=== PATIENT | male | born 1935 | race Caucasian/White ===

== ENCOUNTER 2016-03-09 14:49 | Observation (INO) ==
[2016-03-09] MEDS ORDERED: 0.9 % SODIUM CHLORIDE 1,000 ML IV ONE (15:07)
--- NOTE | 2016-03-09 15:23 | Emergency Department Note ---
General Adult HPI - General Chief complaint: Weakness Stated complaint: confusion, weakness Time Seen by Provider: 03/09/16 15:04 Source: patient, family Mode of arrival: EMS Limitations: no limitations - History of Present Illness HPI Narrative: This is the patient's third trip to the ER in the last 5 days. He was diagnosed with a UTI and started on Levaquin. On the second visit his urine was clearing up. He continues to just be very weak and not eating or drinking much. Sometimes confused. Had a normal CAT scan 2 nights ago of his head. - Related Data Home Medications Medication Instructions Recorded Confirmed Calcium/D3/Mag Ox/Assistant To The President/Gera/Zn 03/07/16 [Caltrate+D3 Plus Mineral Minis] Celebrex 03/07/16 Ferrous Gluconate [Fergon] 324 mg PO 03/07/16 Hydrochlorothiazide [Oretic] 25 mg PO DAILY 03/07/16 03/07/16 Ibuprofen 03/07/16 Levothyroxine [Synthroid] 100 mcg PO DAILY 03/07/16 03/07/16 Losartan Potassium 03/07/16 Omeprazole [Prilosec] 03/07/16 Potassium Chloride [Klor-Con 10] 03/07/16 Valtrex 03/07/16 traMADol HCL [Ultram] 50 mg PO 03/07/16 Previous Rx's Medication Instructions Recorded Levofloxacin [Levaquin] 500 mg PO DAILY #10 tablet 03/02/16 Carbidopa/Levodopa 10/100 [Sinemet 1 tab PO TID #45 tablet 03/07/16 10/100] Allergies Allergy/AdvReac Type Severity Reaction Status Date / Time NO KNOWN DRUG ALLERGIES Allergy Unknown Uncoded 08/11/14 03:16 Review of Systems Constitutional: Denies: fever, chills Eyes: Denies: eye pain ENT ED: Denies: ear pain, throat pain Cardiovascular: Denies: chest pain, palpitations Respiratory: Denies: cough, dyspnea Gastrointestinal: Denies: abdominal pain, nausea, vomiting Genitourinary: Denies: urgency, dysuria Musculoskeletal: Denies: back pain Integumentary: Denies: rash Neurological: Denies: headache Past Medical History - Past Medical History Medical history: Reports: cancer (prostate and lymphoma), GERD, hypertension, kidney stones, thyroid disease Surgical history ED: Reports: orthopedic, other (back surgery), tonsillectomy Physical Exam - General Limitations: no limitations General appearance: alert - Head Head exam: atraumatic - Eye Eye exam: Present: normal appearance - ENT ENT exam: normal exam - Neck Neck exam: Present: normal inspection - Chest Chest inspection: Present: normal inspection - Respiratory Respiratory exam: Present: normal lung sounds bilaterally - Cardiovascular Cardiovascular exam: Present: regular rate, normal rhythm, normal heart sounds - Abdominal Exam Abdominal exam: Present: soft. Absent: distention, tenderness - Neurological Exam Neurological exam: Present: alert - Psychiatric Psychiatric exam: Present: normal affect - Skin Skin exam: Present: warm, dry Course Vital Signs Temperature 98.0 F 03/09/16 14:53 Pulse Rate 97 H 03/09/16 14:53 Respiratory Rate 16 03/09/16 14:53 Blood Pressure 141/77 03/09/16 14:53 Pulse Oximetry (%) 96 03/09/16 14:53 Temperature 98.0 F 03/09/16 14:53 Pulse Rate 93 H 03/09/16 16:34 Respiratory Rate 16 03/09/16 16:34 Blood Pressure 169/93 03/09/16 16:34 Pulse Oximetry (%) 91 03/09/16 16:34 Medical Decision Making - [facility] Narrative Medical decision making narrative: This patient had a new onset seizure while in the emergency room. It lasted about 1 minute. During given Ativan and is waking up some. Have discussed the case with Dr. Sanches and he'll be admitted to telemetry. Repeat CT scan tonight is negative. - Lab Data Lab results reviewed: Yes I reviewed the patient's lab results. Result diagrams: 03/09/16 15:10 03/09/16 15:10 Lab Results 03/09/16 03/09/16 03/09/16 Range/Units 15:10 15:10 15:35 WBC 9.8 (4.5-11.0) K/mcL RBC 5.87 (4.50-5.90) M/mcL Hgb 17.0 H (13.5-16.5) g/dL Hct 52.0 (41.0-55.0) % MCV 88.5 (80.0-100.0) fL MCH 29.0 (26.0-34.0) pg MCHC 32.8 (31.0-36.0) g/dL RDW 13.5 (11.5-14.5) % Plt Count 182 (140-440) K/mcL MPV 9.6 (7.4-10.4) fL Gran % 86.9 H (38.0-78.0) % Lymph % (Auto) 7.4 L (15.5-49.0) % Bladen % (Auto) 5.5 (1.0-9.0) % Eos % (Auto) 0.2 (0.0-7.0) % Baso % (Auto) 0 (0.0-2.0) % Gran # 8.5 H (1.8-8.0) K/mcL Lymph # 0.7 L (1.5-4.8) K/mcL Bladen # 0.5 (0.1-0.9) K/mcL Eos # 0 (0.0-0.7) K/mcL Baso # 0 (0.0-0.3) K/mcL VBG Lactic Acid 1.2 (0.5-2.2) mmol/L Sodium 138 (133-145) mmol/L Potassium 3.5 (3.3-5.1) mmol/L Chloride 98 (96-108) mmol/L Carbon Dioxide 25 (22-30) mmol/L Anion Gap 15.0 (8-16) BUN 17 (8-23) mg/dl Creatinine 1.0 (0.7-1.2) mg/dl GFR Calculation 70 Glucose 102 (70-105) mg/dL Calcium 9.5 (8.6-10.4) mg/dl Total Bilirubin 0.8 (0.0-1.0) mg/dL AST 25 (0-37) U/l ALT 9 (0-40) U/l Alkaline Phosphatase 78 (39-117) U/L Total Protein 7.3 (5.9-8.4) gm/dL Albumin 4.3 (3.2-5.2) gm/dL Globulin 3.0 (2.2-3.7) gm/dL Albumin/Globulin Ratio 1.4 (1.0-2.3) Urine Color Urine Appearance Urine pH (5.0-9.0) Ur Specific Lincoln (1.000-1.035) Urine Protein (NEG) mg/dL Urine Glucose (UA) (NEG) mg/dL Urine Ketones (NEG) mg/dL Urine Occult Blood (<0.03) mg/dL Urine Nitrate (NEG) Urine Bilirubin (NEG) mg/dL Urine Urobilinogen (NEG) mg/dL Ur Leukocyte Esterase (NEG) /uL Urine RBC (0-1) /hpf Urine WBC (0-4) /hpf Ur Squamous Epith Cells (0-4) /hpf Urine Bacteria (0) /hpf Hyaline Casts (0-2) /lpf Granular Casts (0) /lpf Urine Mucus (0) /hpf Ur Culture Indicated? 03/09/16 Range/Units 15:38 WBC (4.5-11.0) K/mcL RBC (4.50-5.90) M/mcL Hgb (13.5-16.5) g/dL Hct (41.0-55.0) % MCV (80.0-100.0) fL MCH (26.0-34.0) pg MCHC (31.0-36.0) g/dL RDW (11.5-14.5) % Plt Count (140-440) K/mcL MPV (7.4-10.4) fL Gran % (38.0-78.0) % Lymph % (Auto) (15.5-49.0) % Bladen % (Auto) (1.0-9.0) % Eos % (Auto) (0.0-7.0) % Baso % (Auto) (0.0-2.0) % Gran # (1.8-8.0) K/mcL Lymph # (1.5-4.8) K/mcL Bladen # (0.1-0.9) K/mcL Eos # (0.0-0.7) K/mcL Baso # (0.0-0.3) K/mcL VBG Lactic Acid (0.5-2.2) mmol/L Sodium (133-145) mmol/L Potassium (3.3-5.1) mmol/L Chloride (96-108) mmol/L Carbon Dioxide (22-30) mmol/L Anion Gap (8-16) BUN (8-23) mg/dl Creatinine (0.7-1.2) mg/dl GFR Calculation Glucose (70-105) mg/dL Calcium (8.6-10.4) mg/dl Total Bilirubin (0.0-1.0) mg/dL AST (0-37) U/l ALT (0-40) U/l Alkaline Phosphatase (39-117) U/L Total Protein (5.9-8.4) gm/dL Albumin (3.2-5.2) gm/dL Globulin (2.2-3.7) gm/dL Albumin/Globulin Ratio (1.0-2.3) Urine Color Yellow Urine Appearance Clear Urine pH 5.0 (5.0-9.0) Ur Specific Lincoln 1.021 (1.000-1.035) Urine Protein 100 A (NEG) mg/dL Urine Glucose (UA) Negative (NEG) mg/dL Urine Ketones 20 A (NEG) mg/dL Urine Occult Blood 0.03 A (<0.03) mg/dL Urine Nitrate Neg (NEG) Urine Bilirubin Neg (NEG) mg/dL Urine Urobilinogen Neg (NEG) mg/dL Ur Leukocyte Esterase Neg (NEG) /uL Urine RBC 2 H (0-1) /hpf Urine WBC 2 (0-4) /hpf Ur Squamous Epith Cells 0 (0-4) /hpf Urine Bacteria 0 (0) /hpf Hyaline Casts 8 H (0-2) /lpf Granular Casts 1 H (0) /lpf Urine Mucus Few (0) /hpf Ur Culture Indicated? No - Radiology Data Radiology results reviewed: Yes I reviewed the patient's radiology results. (cT scan of head is negative) Disposition Clinical Impression: Seizure Disposition: Xfer As Inpt ([facility]) Condition: Good Referrals: Robert Lawrence MD [Primary Care Provider] - Time of Disposition: 16:49
[2016-03-09 15:56] LABS: Basophils # (Auto) 0 K/mcL (0.0-0.3); Basophils % (Auto) 0 % (0.0-2.0); Eosinophils # (Auto) 0 K/mcL (0.0-0.7); Eosinophils % (Auto) 0.2 % (0.0-7.0); Granulocytes % (Auto) 86.9 % (38.0-78.0); Lymphocytes # (Auto) 0.7 K/mcL (1.5-4.8); Lymphocytes % (Auto) 7.4 % (15.5-49.0); Mean Cell Volume 88.5 fL (80.0-100.0); Mean Corpuscular HGB Conc 32.8 g/dL (31.0-36.0); Monocytes # (Auto) 0.5 K/mcL (0.1-0.9); Monocytes % (Auto) 5.5 % (1.0-9.0); Platelet Count 182 K/mcL (140-440); RBC 5.87 M/mcL (4.50-5.90); Red Cell Distribution Width 13.5 % (11.5-14.5)
[2016-03-09 16:10] LABS: Appearance,Urine CLEAR; Bacteria,Urine 0 /hpf (0); Bilirubin,Urine NEG (NEG); Color,Urine YELLOW; Glucose,Urine (UA) NEGATIVE (NEG); Leukocyte Esterase,Urine NEG /uL (NEG); Mucus,Urine FEW /hpf (0); Nitrate,Urine NEG (NEG); Protein,Urine 100 mg/dL (NEG); Specific Gravity,Urine 1.021 (1.000-1.035); Urine Blood 0.03 mg/dL (<0.03); Urine Granular Cast 1 /lpf (0); Urine Hyaline Cast 8 /lpf (0-2); Urine RBC 2 /hpf (0-1); Urine Squamous Epithelial Cell 0 /hpf (0-4); Urine WBC 2 /hpf (0-4); Urobilinogen,Urine NEG (NEG)
[2016-03-09] MEDS ORDERED: LORazepam 2 MG/ML VIAL ONE ×2 (16:10→16:28)
[2016-03-09 16:18] LABS: ALT/SGPT 9 U/l (0-40); Albumin 4.3 gm/dL (3.2-5.2); Albumin/Globulin Ratio 1.4 (1.0-2.3); Alkaline Phosphatase 78 U/L (39-117); Blood Urea Nitrogen 17 mg/dl (8-23)
[2016-03-09] MEDS ORDERED: ONDANSETRON 4 MG/2 ML VIAL IV ONE (16:34)
--- NOTE | 2016-03-09 17:43 | XRay Report ---
HISTORY: Reason for Exam:weak FINDINGS: The lungs are clear. The bibasilar atelectasis seen on 03/02/16 has resolved. The heart size and pulmonary vasculature are normal. There is a loop of colon interposed between the liver and right diaphragm. IMPRESSION: Normal exam Interpreted and Authenticated by: Manjit Marion 03/09/16
--- NOTE | 2016-03-09 17:43 | Cat Scan Report ---
History: Seizure and unresponsive Findings: The brain was imaged without contrast at 2.5 mm intervals. Patient is moving on several images. Many these images had to be repeated. 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 No acute infarct is detected. There is no hemorrhage, cerebral edema or mass effect. Mild generalized atrophy is present. There has been no significant change since 03/07/16. Small amount of fluid is present in the left maxillary sinus. Impression: No acute abnormality Dr. Tan was called with results Interpreted and Authenticated by: Manjit Marion 03/09/16
[2016-03-09] MEDS ORDERED: POTASSIUM CHLORIDE 20 MEQ PACKET PO PRN (19:32)
[2016-03-09] MEDS ORDERED: ONDANSETRON 4 MG/2 ML VIAL IV PRN (19:32)
[2016-03-09] MEDS ORDERED: MAGNESIUM SULFATE 2 GM/50 ML BAG IV PRN (19:32)
[2016-03-09 20:17] LABS: C-Reactive Protein 0.3 mg/dl (0.0-0.8)
[2016-03-09] MEDS: 0.9 % SODIUM CHLORIDE 1,000 ML IV SCH (20:55)
[2016-03-09] MEDS: SENNOSIDES/DOCUSATE SODIUM 1 TAB TABLET PO SCH (20:58)
[2016-03-09] MEDS: DOCUSATE SODIUM 100 MG CAPSULE PO SCH (20:58)
[2016-03-09] MEDS: 0.9 % SODIUM CHLORIDE 10 ML SYRINGE IV SCH (20:58)
[2016-03-09] MEDS: HEPARIN 5,000 UNIT/ML VIAL SQ SCH (21:49)
[2016-03-10] MEDS: 0.9 % SODIUM CHLORIDE 10 ML SYRINGE IV SCH ×3 (05:10→20:59)
[2016-03-10 07:58] LABS: Mean Cell Volume 87.9 fL (80.0-100.0); Mean Corpuscular HGB Conc 32.7 g/dL (31.0-36.0); Mean Corpuscular Hemoglobin 28.8 pg (26.0-34.0); Platelet Count 140 K/mcL (140-440); RBC 5.02 M/mcL (4.50-5.90); Red Cell Distribution Width 13.6 % (11.5-14.5)
[2016-03-10 08:45] LABS: ALT/SGPT 9 U/l (0-40); Albumin 3.3 gm/dL (3.2-5.2); Albumin/Globulin Ratio 1.3 (1.0-2.3); Alkaline Phosphatase 61 U/L (39-117); Bilirubin,Direct < 0.2 mg/dL (0.0-0.3); Blood Urea Nitrogen 15 mg/dl (8-23); Gamma Glutamyl Transpeptidase 9 U/L (8-61); Magnesium 1.7 mg/dL (1.6-2.5); Phosphorous 2.7 mg/dL (2.7-4.5); Uric Acid 8.1 mg/dL (2.5-8.0)
[2016-03-10] MEDS: HEPARIN 5,000 UNIT/ML VIAL SQ SCH ×2 (09:35→20:53)
[2016-03-10] MEDS: DOCUSATE SODIUM 100 MG CAPSULE PO SCH ×2 (09:35→20:52)
[2016-03-10] MEDS: MULTIVIT,THER IRON,CA,FA & MIN 1 TABLET PO SCH (09:35)
[2016-03-10 09:37] LABS: Eosinophils % (Manual) 1 % (0-7); Lymphocytes % 10 % (15-49); Monocytes % (Manual) 11 % (1-9); Platelet Estimate NORMAL (NORMAL); RBC Morphology NORMAL (NORMAL); Segmented Neutrophils % 76 % (38-78)
[2016-03-10] MEDS ORDERED: TRIAMCINOLONE 0.1% TOPICAL PRN (09:55)
--- NOTE | 2016-03-10 10:29 | Internal Med Progress Note ---
Medical - PN: Subj Patient information: Note initiated : 03/10/16 at 10:29 am Service Date, if different from initiated Date: [] Patient: Bakari Golden 81 y/o M admitted on 03/09/16 for confusion, weakness. Chief Complaint: [] Interval history: 03/09 pt admitted with new on set seizure and recent UTI with weakness and levaquin, Normal metabolic panel. Await brain MRI to r/o structural abn. DC levaquin and tramadol due to high risk drug induced seizure. Avoid antiepileptics since first episode. 03/10- patient seizure free overnight with normalization of mentation. Improved weakness, ongoing PT, await brain MRI. Case discussed with carlotta including and daughter. Possible discharge in am. Continue rocephin. - Constitutional Vitals: Vital Signs Temp Pulse Resp BP Pulse Ox 98.8 F 88 16 128/82 99 03/10/16 08:12 03/10/16 08:12 03/10/16 08:12 03/10/16 08:12 03/10/16 08:12 Period Temp Pulse Resp BP Sys/Alonso Pulse Ox Last 24 Hr 98.8 F-100.1 F 81-92 14-20 128-163/80-89 93-99 Intake and Output 03/09/16 03/10/16 03/10/16 21:59 05:59 13:59 Intake Total 0 / 0 Output Total 301 / 301 Balance - -301 / -301 Weight 146 lb 0.3 oz Intake & Output: Intake & Output 03/09/16 03/10/16 03/10/16 21:59 05:59 13:59 Intake Total 0 / 0 Output Total 301 / 301 Balance - -301 / -301 Weight 146 lb 0.3 oz Intake: Oral 0 / 0 Output: Void Amount 300 / 300 # of times incontinent of urine Other: # Voids 225 General appearance: cooperative, no acute distress Exam: Alert an doriented Non labored breathing No tele events Medical - PN: Obj Da - Labs CBC & Chem 7: 03/10/16 04:40 03/10/16 04:40 Labs: Abnormal Lab Results 03/10/16 03/10/16 04:40 04:40 Lymphocytes % 10 L Monocytes % (Manual) 11 H Potassium 3.2 L Carbon Dioxide 21 L Uric Acid 8.1 H Calcium 8.3 L Total Protein 5.8 L Meds: Medications Acetaminophen (Tylenol) 650 mg PO Q4-6HP PRN PRN Reason: PAIN/FEVER > 101 Calcium/Vitamin D (Calcium W/Vit D3) 500 mg PO DAILY [facility] Carbidopa/Levodopa (Sinemet 10/100) 1 tab PO TID [facility] Docusate Sodium (Colace) 100 mg PO BID [facility] Last Admin: 03/10/16 09:35 Dose: 100 mg Heparin Sodium (Porcine) (Heparin) 5,000 unit SQ Q12 [facility] Last Admin: 03/10/16 09:35 Dose: 5,000 unit Hydrochlorothiazide (Oretic) 25 mg PO DAILY [facility] Magnesium Sulfate (Magnesium Sulfate) 2 gm in 50 mls @ 50 mls/hr IV UD PRN PRN Reason: MG = or < 1.7 Sodium Chloride (Sodium Chloride 0.9%) 1,000 mls @ 50 mls/hr IV .Q20H [facility] Stop: 03/12/16 07:31 Last Admin: 03/09/16 20:55 Dose: 50 mls/hr Thiamine HCl 100 mg/ Sodium (Chloride) 51 mls @ 50 mls/hr IV DAILY [facility] Stop: 03/12/16 10:02 Ceftriaxone Sodium 1 gm/ (Dextrose) 50 mls @ 100 mls/hr IV Q24H [facility] Iron Carb/Multivit/Thurston/Folic Acid (Multivitamin W/Minerals) 1 tab PO DAILY [facility] Last Admin: 03/10/16 09:35 Dose: 1 tab Levothyroxine Sodium (Synthroid) 100 mcg PO ACB [facility] Losartan Potassium (Cozaar) 50 mg PO DAILY [facility] Non-Formulary Medication (Celebrex) 1 capsule PO DAILY [facility] Non-Formulary Medication (Triamcinolone Cream 0.1% 15g) 15 g TOPICAL TID PRN PRN Reason: Itching Ondansetron HCl (Zofran) 4 mg IV Q4-6HP PRN PRN Reason: Nausea And Vomiting Pantoprazole Sodium (Protonix) 40 mg PO QAMAC [facility] Potassium Chloride (Klor-Con) 40 meq PO DAILYP PRN PRN Reason: K+ < 3.5 Potassium Chloride (Kdur) 10 meq PO QAC [facility] Senna/Docusate Sodium (Senna Plus Tablet) 1 tab PO HS [facility] Last Admin: 03/09/16 20:58 Dose: Not Given Sodium Chloride (Saline Flush) 10 ml IV Q8 [facility] Last Admin: 03/10/16 05:10 Dose: Not Given Medical - PN: A/P - Time Spent With Patient Total time spent is greater than 50% in coordination of care (as documented) at patient's floor/unit and/or counseling patient: 15 - 24 minutes (1) New onset seizure Status: Acute Assessment and plan: * New onset seizure- Nl electrolytes, Nl Head CT, await brain MRI, likely drug induced, DC tramadol and levaquin. continue neurochecks. Pt at near baseline * Recent UTI- on rocephin * Weakness- Physical therapy, nutrition consult, diet supplements * parkinsons Dz- On Home meds Plan * Dc in am * Await brain MRI * Abx for 2 more days * Home meds to continue * Add tramadol and levaquin to adverse reaction list if brain MRI unremarkable for seizure etiology Current Visit: Yes Medical - PN: Qual - VTE Deep Vein Thrombosis/Pulmonary Embolism Present on Admission: No
[2016-03-10] MEDS: cefTRIAXone 1 GM in DEXTROSE 5% IN WATER 50 ML IV SCH (11:00)
[2016-03-10] MEDS: CARBIDOPA/LEVODOPA 10/100 TABLET PO SCH (12:19)
[2016-03-10] MEDS: THIAMINE 100 MG in 0.9 % SODIUM CHLORIDE 50 ML IV SCH (12:19)
[2016-03-10] MEDS: LOSARTAN 50 MG TABLET PO SCH (12:19)
[2016-03-10] MEDS: HYDROCHLOROTHIAZIDE 25 MG TABLET PO SCH (12:19)
--- NOTE | 2016-03-10 14:53 | History and Physical Report ---
DATE OF ADMISSION: 03/09/2016 REASON FOR ADMISSION: New onset of seizures and weakness. HISTORY OF CHIEF COMPLAINT: The patient is an 81-year-old who lives fairly independently along with his . He is accompanied to [facility] for the third time in the last one week due to increasing weakness and confusion. The patient was recently diagnosed with a UTI and was started on Levaquin; however, he has been persistently lethargic, unable to function and more forgetful. He has had significant loss of appetite. He, however, denies fever, chills, headache, palpitation. He is hard of hearing. He denies lower extremity swelling, joint pain, rash, diarrhea, or dysuria. Initial workup in the ER was essentially unremarkable; however, patient during the ER stay had a witnessed generalized tonic clonic seizure and subsequently Hospitalist Service was consulted in light of new onset of seizures. The patient denies any history of prior seizures, strokes or head trauma. REVIEW OF SYSTEMS: Ten-point review of system was performed and negative except the ones discussed above. PAST MEDICAL HISTORY: 1. Hypertension. 2. Degenerative joint disease. 3. Hypothyroidism. 4. GERD. 5. History of herpes. 6. Recent UTI. 7. Occasional Tremors CURRENT MEDICATIONS: 1. Levodopa/Carbidopa ( recently prescribed for tremors) 2. Valtrex. 3. Tramadol. 4. Potassium 10 mEq. 5. Prilosec 20 mg. 6. Synthroid 100 mcg. 7. Ibuprofen as needed. 8. Hydrochlorothiazide 25 mg daily. 9. Calcium and Vitamin D. ALLERGIES: None significant. SOCIAL HISTORY: The patient is and lives in the [place]. He sees primary care physician, Robert Lawrence. The patient carries a [id number] history of smoking, but quit 50 years ago. No history of alcoholism. FAMILY HISTORY: Significant for pancreatic cancer in mother who at age 53, coronary artery disease in father, colon cancer in brother who at age 65. PHYSICAL EXAMINATION: GENERAL: The patient is nondistressed; however, postictal confused, hard of hearing. BMI 23.6. Height 5 feet 6 inches. VITAL SIGNS: Blood pressure 146/80, respiration rate 17, temperature 100.1, pulse 105, sats 95% on 2 liters of oxygen. HEENT: Pupils symmetric. Oral cavity is dry. No ear or nose discharge. Head is normocephalic and atraumatic. NECK: No lymphadenopathy. HEART: S1, S2 regular rhythm, tachycardia. ESM grade 1. CHEST: Diminished breath sounds at bases. ABDOMEN: Soft and nontender. LOWER EXTREMITIES: No cyanosis or clubbing. No joint swelling. SKIN: No suspicious lesions. PSYCH: Postictal state, confused, but no agitation. NEURO: Could not be performed; however, he is moving all four extremities. LABS AND IMAGING: White count 9.8, hemoglobin 17, platelets, 182, lactic acid 1.2, sodium 138, potassium 3.5, creatinine 1, BUN 17. LFTs unremarkable. CRP less than 0.3. UA unremarkable. X-ray chest: Normal exam. Head CT: No acute abnormalities. ASSESSMENT AND PLAN: An 81-year-old with new onset of seizure. CT head unremarkable. 1. New onset seizure. Electrolyte and metabolic panel unremarkable. Head CT unremarkable. Brain MRI in 24 hours. Patient denies history of head trauma or brain surgery. At this time, we would not start patient on antiepileptics given first seizure episode; however, Levaquin and Tramadol may be implicated for likely drug-induced seizure which will be discontinued and will be noted on allergy list. 2. Other prior medical issues including history of recent UTI, continue Rocephin; Parkinson's disease, continue Levodopa/Carbidopa; degenerative joint disease, continue Celebrex/Ibuprofen as needed along with acetaminophen; GERD, continue PPI; hypothyroidism, continue Thyroxine. PLAN FOR TODAY: 1. Admit as observation telemetry. 2. Discontinue Levofloxacin and tramadol. 3. Continue Rocephin for recent UTI. 4. Preexisting medical condition management as above. 5. New checks q.4h. AA:senait Job ID: [id number] Doc ID: [id number] Chilo REID
[2016-03-10] MEDS: SENNOSIDES/DOCUSATE SODIUM 1 TAB TABLET PO SCH (20:53)
[2016-03-10] MEDS: 0.9 % SODIUM CHLORIDE 1,000 ML IV SCH (20:57)
[2016-03-10] MEDS: ACETAMINOPHEN 325 MG TABLET PO PRN (22:27)
[2016-03-11] MEDS: ACETAMINOPHEN 325 MG TABLET PO PRN (04:10)
[2016-03-11] MEDS: 0.9 % SODIUM CHLORIDE 10 ML SYRINGE IV SCH ×3 (04:21→20:30)
[2016-03-11 05:33] LABS: Mean Cell Volume 89.6 fL (80.0-100.0); Mean Corpuscular HGB Conc 32.8 g/dL (31.0-36.0); Mean Corpuscular Hemoglobin 29.4 pg (26.0-34.0); Platelet Count 136 K/mcL (140-440); RBC 4.65 M/mcL (4.50-5.90); Red Cell Distribution Width 13.7 % (11.5-14.5)
[2016-03-11 06:17] LABS: ALT/SGPT 9 U/l (0-40); Albumin 3.2 gm/dL (3.2-5.2); Albumin/Globulin Ratio 1.3 (1.0-2.3); Alkaline Phosphatase 59 U/L (39-117); Bilirubin,Direct < 0.2 mg/dL (0.0-0.3); Blood Urea Nitrogen 13 mg/dl (8-23); Gamma Glutamyl Transpeptidase 10 U/L (8-61); Magnesium 1.9 mg/dL (1.6-2.5); Phosphorous 2.2 mg/dL (2.7-4.5)
[2016-03-11] MEDS: CARBIDOPA/LEVODOPA 10/100 TABLET PO SCH (06:36)
[2016-03-11 06:44] LABS: Lymphocytes % 16 % (15-49); Monocytes % (Manual) 7 % (1-9); Platelet Estimate DECREASED (NORMAL); RBC Morphology NORMAL (NORMAL); Segmented Neutrophils % 75 % (38-78)
[2016-03-11] MEDS: LEVOTHYROXINE 100 MCG TABLET PO SCH (07:28)
[2016-03-11] MEDS: PANTOPRAZOLE 40 MG TABLET PO SCH (07:28)
[2016-03-11] MEDS: HEPARIN 5,000 UNIT/ML VIAL SQ SCH ×2 (08:12→19:53)
[2016-03-11] MEDS: LOSARTAN 50 MG TABLET PO SCH (08:12)
[2016-03-11] MEDS: MULTIVIT,THER IRON,CA,FA & MIN 1 TABLET PO SCH (08:12)
[2016-03-11] MEDS: CELECOXIB 200 MG CAPSULE PO SCH (08:12)
[2016-03-11] MEDS: CALCIUM W/VIT D3 500 MG TABLET PO SCH (08:12)
[2016-03-11] MEDS: DOCUSATE SODIUM 100 MG CAPSULE PO SCH ×2 (08:12→19:54)
[2016-03-11] MEDS: HYDROCHLOROTHIAZIDE 25 MG TABLET PO SCH (08:12)
[2016-03-11] MEDS: cefTRIAXone 1 GM in DEXTROSE 5% IN WATER 50 ML IV SCH (08:13)
[2016-03-11] MEDS: POTASSIUM CHLORIDE 10 MEQ TABLET PO SCH (08:13)
[2016-03-11] MEDS: THIAMINE 100 MG in 0.9 % SODIUM CHLORIDE 50 ML IV SCH (09:13)
[2016-03-11] MEDS ORDERED: LORazepam 2 MG/ML VIAL IV ONE (11:30)
[2016-03-11] MEDS: 0.9 % SODIUM CHLORIDE 1,000 ML IV SCH (11:31)
--- NOTE | 2016-03-11 13:47 | Magnetic Resonance Report ---
CLINICAL INFORMATION: New onset seizure COMPARISON: None. TECHNIQUE:Sagittal T1 FLAIR, axial T1 FLAIR, T2 FLAIR propeller, T2 propeller, gradient, diffusion, ADC and coronal T2 weighted images were acquired. FINDINGS: Exam was moderately limited by motion artifact. This pedicles, sulci, fissures and cisterns are symmetrically enlarged compatible with mild age-related atrophy - no extra-axial collections are appreciated. Scattered chronic ischemic foci in the cerebral white matter is typical for age. A 4 mm remote lacunar infarct is noted in the right peritrigonal white matter and a 4 mm remote lacunar infarct is noted in the right genu of the corpus callosum. There is no regions of restricted diffusion to suggest acute infarct. No intracerebral hemorrhage, mass effect, edema or other acute findings. There is bulbous prominence of the supraclinoid segment of the right internal intracranial internal carotid artery which may indicate a 7 mm saccular aneurysm. It is not well visualized IMPRESSION: 1. No intracerebral hemorrhage, acute infarct or other acute finding 2. Mild atrophy and scattered chronic ischemic foci in the cerebral white matter - typical for age. 3. Small remote lacunar infarcts in the right peritrigonal white matter and right corpus callosum genu. 4. 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 Consider CT cerebral angiography for better evaluation Interpreted and Authenticated by: Uzair Fernández 03/11/16
--- NOTE | 2016-03-11 19:37 | Internal Med Progress Note ---
Medical - PN: Subj Patient information: Note initiated : 03/11/16 at 7:35 pm Service Date, if different from initiated Date: [] Patient: Bakari Golden 81 y/o M admitted on 03/09/16 for Confusion/New Onset of Seizures, Weakness. Chief Complaint: [] Interval history: 03/09 pt admitted with new on set seizure and recent UTI with weakness and levaquin, Normal metabolic panel. Await brain MRI to r/o structural abn. DC levaquin and tramadol due to high risk drug induced seizure. Avoid antiepileptics since first episode. 03/10- patient seizure free overnight with normalization of mentation. Improved weakness, ongoing PT, await brain MRI. Case discussed with carlotta including and daughter. Possible discharge in am. Continue rocephin. March 11, 2016: this morning the patient was up out of bed and said he was feeling pretty well. He had to undergo an MRI today, to search for possible causes for his seizure. He was very upset and anxious about that, so did receive a dose of Ativan. Ever since then he has been quite groggy and a little bit confused, and the nurses noted he tries to climb out of bed, etc. His family has been with him most of the afternoon, and he is clearing a little bit, but is still quite groggy andthe making decisions poorly. The original plan was to maybe have him go home this afternoon with his , per his preferences, but his family is now concerned that he would fall given his current sleepy state. 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 he has not had any further seizures. He otherwise denies headaches or dizziness, chest pain or shortness of breath, abdominal pain. potassium level was low this morning, and was replaced. - Constitutional Vitals: Vital Signs Temp Pulse Resp BP Pulse Ox 97.5 F L 82 20 179/85 96 03/11/16 19:32 03/11/16 07:15 03/11/16 19:32 03/11/16 19:32 03/11/16 19:32 Period Temp Pulse Resp BP Sys/Alonso Pulse Ox Last 24 Hr 97.5 F-99.2 F 82 16-20 150-179/73-94 94-99 Intake and Output 03/11/16 03/11/16 03/11/16 05:59 13:59 21:59 Intake Total 660 / 660 341 / 341 Output Total 1300 / 1300 440 / 440 701 / 701 Balance -640 / -640 -99 / -99 -701 / -701 Weight 144 lb 3.2 oz Patient Weight 03/12/16 05:59 Weight 144 lb 3.2 oz Intake & Output: Intake & Output 03/11/16 03/11/16 03/11/16 05:59 13:59 21:59 Intake Total 660 / 660 341 / 341 Output Total 1300 / 1300 440 / 440 701 / 701 Balance -640 / -640 -99 / -99 -701 / -701 Weight 144 lb 3.2 oz Intake: IV 101 / 101 Sodium Chloride 0.9% 50 51 / 51 ml @ 50 mls/hr IV DAILY DOMINIQUE with Vitamin B1 100 mg Rx#:[id number] Dextrose 5% in Water 50 50 / 50 ml @ 100 mls/hr IV Q24H DOMINIQUE with Rocephin 1 gm Rx #:[id number] Oral 660 / 660 240 / 240 Output: Void Amount 1300 / 1300 440 / 440 700 / 700 # of times incontinent of urine Other: Meal Breakfast Percent of Meal Consumed 50% Feeding Ability Assist with Tray Set Up # Voids 1 1 # Bowel Movements 1 0 Exam: this morning he was sitting up in his chair, eating breakfast. He is quite hard of hearing. Neck is supple without obvious lymphadenopathy or JVD. Cardiac exam shows regular rate and rhythm. Lungs are clear to auscultation. Abdomen is soft and nontender. extremities show no edema. Neurologic exam is grossly nonfocal. Medical - PN: Obj Da - Labs CBC & Chem 7: 03/11/16 03:55 03/11/16 03:55 Labs: Abnormal Lab Results 03/11/16 03/11/16 03/10/16 03:55 03:55 04:40 Plt Count 136 L Lymphocytes % Monocytes % (Manual) Platelet Estimate Decreased A Potassium 3.1 L 3.2 L Carbon Dioxide 21 L Glucose 116 H Uric Acid 8.1 H Calcium 8.1 L 8.3 L Phosphorus 2.2 L Total Protein 5.6 L 5.8 L 03/10/16 04:40 Plt Count Lymphocytes % 10 L Monocytes % (Manual) 11 H Platelet Estimate Potassium Carbon Dioxide Glucose Uric Acid Calcium Phosphorus Total Protein MRI shows no intracerebral hemorrhage or acute infarct. There is mild chronic ischemic change. There is small remote lacunar infarcts in the right. Trigonal white matter and right corpus callosum just new. 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 Meds: Medications Acetaminophen (Tylenol) 650 mg PO Q4-6HP PRN PRN Reason: PAIN/FEVER > 101 Last Admin: 03/11/16 04:10 Dose: 650 mg Calcium/Vitamin D (Calcium W/Vit D3) 500 mg PO DAILY [facility] Last Admin: 03/11/16 08:12 Dose: 500 mg Celecoxib (Celebrex) 200 mg PO DAILY [facility] Last Admin: 03/11/16 08:12 Dose: 200 mg Docusate Sodium (Colace) 100 mg PO BID [facility] Last Admin: 03/11/16 08:12 Dose: 100 mg Heparin Sodium (Porcine) (Heparin) 5,000 unit SQ Q12 [facility] Last Admin: 03/11/16 08:12 Dose: 5,000 unit Hydrochlorothiazide (Oretic) 25 mg PO DAILY [facility] Last Admin: 03/11/16 08:12 Dose: 25 mg Magnesium Sulfate (Magnesium Sulfate) 2 gm in 50 mls @ 50 mls/hr IV UD PRN PRN Reason: MG = or < 1.7 Last Infusion: 03/10/16 11:00 Dose: Infused Sodium Chloride (Sodium Chloride 0.9%) 1,000 mls @ 50 mls/hr IV .Q20H [facility] Stop: 03/12/16 07:31 Last Admin: 03/11/16 11:31 Dose: Not Given Thiamine HCl 100 mg/ Sodium (Chloride) 51 mls @ 50 mls/hr IV DAILY [facility] Stop: 03/12/16 10:02 Last Infusion: 03/11/16 10:40 Dose: Infused Ceftriaxone Sodium 1 gm/ (Dextrose) 50 mls @ 100 mls/hr IV Q24H [facility] Last Infusion: 03/11/16 09:14 Dose: Infused Iron Carb/Multivit/[place]/Folic Acid (Multivitamin W/Minerals) 1 tab PO DAILY [facility] Last Admin: 03/11/16 08:12 Dose: 1 tab Levothyroxine Sodium (Synthroid) 100 mcg PO ACB [facility] Last Admin: 03/11/16 07:28 Dose: 100 mcg Losartan Potassium (Cozaar) 50 mg PO DAILY [facility] Last Admin: 03/11/16 08:12 Dose: 50 mg Ondansetron HCl (Zofran) 4 mg IV Q4-6HP PRN PRN Reason: Nausea And Vomiting Pantoprazole Sodium (Protonix) 40 mg PO QAMAC [facility] Last Admin: 03/11/16 07:28 Dose: 40 mg Triamcinolone Cream (0.1%) 1 dose TOPICAL TID PRN PRN Reason: Itching Potassium Chloride (Klor-Con) 40 meq PO DAILYP PRN PRN Reason: K+ < 3.5 Last Admin: 03/11/16 08:39 Dose: 40 meq Potassium Chloride (Kdur) 10 meq PO QAC [facility] Last Admin: 03/11/16 08:13 Dose: 10 meq Senna/Docusate Sodium (Senna Plus Tablet) 1 tab PO HS [facility] Last Admin: 03/10/16 20:53 Dose: 1 tab Sodium Chloride (Saline Flush) 10 ml IV Q8 [facility] Last Admin: 03/11/16 13:35 Dose: Not Given Medical - PN: A/P - Time Spent With Patient Total time spent is greater than 50% in coordination of care (as documented) at patient's floor/unit and/or counseling patient: - Narrative A/P Narrative: #1. Neurologic. -The patient has not had any recurrent seizures. He seemed to be doing quite well, until he received the Ativan this morning. He is now too sleepy and impulsive to safely go home, so we will watch him overnight. -mRI shows no definite source of his seizure The importance of the tiny aneurysm that was found is unclear. He does have a neurology appointment set up as an outpatient, and his family is aware that they will need to review his MRI findings with the neurologist. or now,he should list Levaquin and tramadol as possible allergies. -History of Parkinson's disease. Continue home medications. #2. Recent UTI. currently being treated with Rocephin. #3. Hypokalemia. Replaced IV and by mouth. Recheck in the morning. #4.mobility and fall risk. Physical therapy and occupational therapy feel that the patient would benefit from ongoing physical therapy, but the patient has been resistant to this. The patient and family's current desire is to have him return home, and be set up for physical therapy as an outpatient. #5. CODE STATUS: Full code. his visit took [id number] minutes today, to review the patient's test results, meet with him this morning, and again with him and his family this evening as well as reviewing his case with nursing staff and writing orders. Medical - PN: Qual - VTE Deep Vein Thrombosis/Pulmonary Embolism Present on Admission: No
[2016-03-11] MEDS: SENNOSIDES/DOCUSATE SODIUM 1 TAB TABLET PO SCH (19:54)
[2016-03-12 05:26] LABS: Mean Cell Volume 89.7 fL (80.0-100.0); Mean Corpuscular HGB Conc 32.3 g/dL (31.0-36.0); Platelet Count 165 K/mcL (140-440); RBC 5.14 M/mcL (4.50-5.90); Red Cell Distribution Width 13.8 % (11.5-14.5)
[2016-03-12 05:44] LABS: ALT/SGPT 10 U/l (0-40); Albumin 3.5 gm/dL (3.2-5.2); Albumin/Globulin Ratio 1.3 (1.0-2.3); Alkaline Phosphatase 66 U/L (39-117); Bilirubin,Direct < 0.2 mg/dL (0.0-0.3); Blood Urea Nitrogen 13 mg/dl (8-23); Gamma Glutamyl Transpeptidase 12 U/L (8-61); Magnesium 1.7 mg/dL (1.6-2.5); Uric Acid 4.9 mg/dL (2.5-8.0)
[2016-03-12] MEDS: 0.9 % SODIUM CHLORIDE 10 ML SYRINGE IV SCH (07:02)
[2016-03-12 07:42] LABS: Eosinophils % (Manual) 3 % (0-7); Lymphocytes % 7 % (15-49); Monocytes % (Manual) 2 % (1-9); Platelet Estimate NORMAL (NORMAL); RBC Morphology NORMAL (NORMAL); Segmented Neutrophils % 88 % (38-78)
[2016-03-12] MEDS: HEPARIN 5,000 UNIT/ML VIAL SQ SCH (07:47)
[2016-03-12] MEDS: CALCIUM W/VIT D3 500 MG TABLET PO SCH (07:47)
[2016-03-12] MEDS: DOCUSATE SODIUM 100 MG CAPSULE PO SCH (07:47)
[2016-03-12] MEDS: MULTIVIT,THER IRON,CA,FA & MIN 1 TABLET PO SCH (07:47)
[2016-03-12] MEDS: CELECOXIB 200 MG CAPSULE PO SCH (07:47)
[2016-03-12] MEDS: LOSARTAN 50 MG TABLET PO SCH (07:47)
[2016-03-12] MEDS: HYDROCHLOROTHIAZIDE 25 MG TABLET PO SCH (07:47)
[2016-03-12] MEDS: PANTOPRAZOLE 40 MG TABLET PO SCH (07:48)
[2016-03-12] MEDS: LEVOTHYROXINE 100 MCG TABLET PO SCH (07:48)
[2016-03-12] MEDS: POTASSIUM CHLORIDE 10 MEQ TABLET PO SCH (07:48)
[2016-03-12] MEDS: cefTRIAXone 1 GM in DEXTROSE 5% IN WATER 50 ML IV SCH (07:49)
[2016-03-12] MEDS: THIAMINE 100 MG in 0.9 % SODIUM CHLORIDE 50 ML IV SCH (07:49)
--- NOTE | 2016-03-12 09:59 | Discharge Summary ---
Medical - DS: Prov Patient information: Note initiated : 03/12/16 at 9:43 am Service Date, if different from initiated Date: [] Patient: Bakari Golden 81 y/o M admitted on 03/09/16 for Confusion/New Onset of Seizures, Weakness. Chief Complaint: [] Date of admission: 03/09/16 19:28 Discharge date: 03/12/16 Primary care physician: [Dr. Robert Lawrence, phone #[phone]] Admitting clinician: Chilo Gannon Discharging clinician: Debbi Clement Medical - DS: Meds - Discharge Medications Prescriptions: Potassium Chloride [Klor-Con 10] 20 meq PO DAILY #1 tablet.er Sulfamethoxazole/Trimethoprim [Bactrim Ds Tablet] 1 each PO BID #4 tablet Active and Home Medications: Home Medications Beatty-3/Dha/Epa/Fish Oil [Fish Oil 1,000 mg Softgel] 1,000 mg PO DAILY 03/10/16 [History Confirmed 03/10/16 Last Taken Unknown] Triamcinolone Cream 0.1% 15G [Kenalog Cream 0.1%] 1 dose TOPICAL TIDP PRN [History Confirmed 03/10/16 Last Taken Unknown] Active Medications Acetaminophen (Tylenol) 650 mg PO Q4-6HP PRN PRN Reason: PAIN/FEVER > 101 Last Admin: 03/11/16 04:10 Dose: 650 mg Calcium/Vitamin D (Calcium W/Vit D3) 500 mg PO DAILY [facility] Last Admin: 03/12/16 07:47 Dose: 500 mg Celecoxib (Celebrex) 200 mg PO DAILY [facility] Last Admin: 03/12/16 07:47 Dose: 200 mg Docusate Sodium (Colace) 100 mg PO BID [facility] Last Admin: 03/12/16 07:47 Dose: 100 mg Heparin Sodium (Porcine) (Heparin) 5,000 unit SQ Q12 [facility] Last Admin: 03/12/16 07:47 Dose: 5,000 unit Hydrochlorothiazide (Oretic) 25 mg PO DAILY [facility] Last Admin: 03/12/16 07:47 Dose: 25 mg Magnesium Sulfate (Magnesium Sulfate) 2 gm in 50 mls @ 50 mls/hr IV UD PRN PRN Reason: MG = or < 1.7 Last Infusion: 03/10/16 11:00 Dose: Infused Thiamine HCl 100 mg/ Sodium (Chloride) 51 mls @ 50 mls/hr IV DAILY [facility] Stop: 03/12/16 10:02 Last Admin: 03/12/16 07:49 Dose: Not Given Ceftriaxone Sodium 1 gm/ (Dextrose) 50 mls @ 100 mls/hr IV Q24H [facility] Last Admin: 03/12/16 07:49 Dose: Not Given Iron Carb/Multivit/[place]/Folic Acid (Multivitamin W/Minerals) 1 tab PO DAILY [facility] Last Admin: 03/12/16 07:47 Dose: 1 tab Levothyroxine Sodium (Synthroid) 100 mcg PO ACB [facility] Last Admin: 03/12/16 07:48 Dose: 100 mcg Losartan Potassium (Cozaar) 50 mg PO DAILY [facility] Last Admin: 03/12/16 07:47 Dose: 50 mg Ondansetron HCl (Zofran) 4 mg IV Q4-6HP PRN PRN Reason: Nausea And Vomiting Pantoprazole Sodium (Protonix) 40 mg PO QAMAC [facility] Last Admin: 03/12/16 07:48 Dose: 40 mg Triamcinolone Cream (0.1%) 1 dose TOPICAL TID PRN PRN Reason: Itching Potassium Chloride (Klor-Con) 40 meq PO DAILYP PRN PRN Reason: K+ < 3.5 Last Admin: 03/11/16 08:39 Dose: 40 meq Potassium Chloride (Kdur) 10 meq PO QAC [facility] Last Admin: 03/12/16 07:48 Dose: 10 meq Senna/Docusate Sodium (Senna Plus Tablet) 1 tab PO HS [facility] Last Admin: 03/11/16 19:54 Dose: Not Given Sodium Chloride (Saline Flush) 10 ml IV Q8 [facility] Last Admin: 03/12/16 07:02 Dose: Not Given Medical - DS: Hosp Hospital course: Mr. Golden is a 81 year old male 03/09 pt admitted with new on set seizure and recent UTI with weakness, reated with levaquin, Normal metabolic panel. Await brain MRI to r/o structural abn. DC levaquin and tramadol due to high risk drug induced seizure. Avoid antiepileptics since first episode. 1/2- patient seizure free overnight with normalization of mentation. Improved weakness, ongoing PT, await brain MRI. Case discussed with family including and daughter. Possible discharge in am. Continue rocephin. March 11, 2016: this morning the patient was up out of bed and said he was feeling pretty well. He had to undergo an MRI today, to search for possible causes for his seizure. He was very upset and anxious about that, so did receive a dose of Ativan. Ever since then he has been quite groggy and a little bit confused, and the nurses noted he tries to climb out of bed, etc. His family has been with him most of the afternoon, and he is clearing a little bit, but is still quite groggy andthe making decisions poorly. The original plan was to maybe have him go home this afternoon with his , per his preferences, but his family is now concerned that he would fall given his current sleepy state. 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 he has not had any further seizures. He otherwise denies headaches or dizziness, chest pain or shortness of breath, abdominal pain. potassium level was low this morning, and was replaced. March 12, 2016: The patient's mental status has cleared remarkably overnight, and he appears back to baseline, per his family. He was able to stand and walk over to the chair today with his walker. He denies any particular complaints, and specifically denies chest pain or shortness of breath abdominal pain nausea vomiting, diarrhea, dysuria. #1. Neurologic. -The patient has not had any recurrent seizures. is mental status was back to baseline yesterday, prior to receiving Ativan. The Ativan seemed to have prolonged adverse effect on his mental clarity, but that seems much improved this morning. -mRI shows no definite source of his seizure The importance of the tiny aneurysm that was found is unclear. He does have a neurology appointment set up as an outpatient, and his family is aware that they will need to review his MRI findings with the neurologist. For now,he should list Levaquin and tramadol as possible allergies. -History of Parkinson's disease. Continue home medications. #2. Recent UTI. e has now had 4 doses of IV Rocephin. Unfortunately no culture was done, so we will have to continue to treat empirically. Bactrim DS was ordered for the next 4 days. He should follow up with his primary care physician and/or a urologist, to follow up on the UTI. #3. Hypokalemia. Potassium has been running low here, so I did increase his oral potassium up to 20 mEq per day. This should be rechecked when he has his follow-up appointment. #4.mobility and fall risk. Physical therapy and occupational therapy feel that the patient would benefit from ongoing physical therapy, but the patient has been resistant to this. The patient and family's current desire is to have him return home, and be set up for physical therapy as an outpatient. #5. CODE STATUS: Full code. #6. Blood pressures have continued to run intermittently high here, and should be closely monitored at home, as his MRI does show evidence of previous lacunar infarcts. - Time Spent with Patient Total time spent providing and/or coordinating discharge services: Greater than 30 minutes Medical - DS: Exam - Constitutional Vitals: Vital Signs Temp Resp BP BP Pulse Ox 03/12/16 08:00 98.8 F 20 146/89 03/12/16 07:34 94 03/12/16 04:00 98.2 F 18 164/89 93 03/12/16 00:00 97.8 F 18 156/93 93 03/11/16 20:00 96 03/11/16 19:32 97.5 F L 20 179/85 96 03/11/16 16:00 97.7 F 20 170/94 97 03/11/16 11:41 98.4 F 20 154/93 94 Intake and Output 03/11/16 03/12/16 03/12/16 21:59 05:59 13:59 Intake Total 150 / 150 Output Total 901 / 901 500 / 500 Balance -901 / -901 -350 / -350 Intake: Oral 150 / 150 Output: Void Amount 900 / 900 500 / 500 # of times incontinent of 1 / 1 urine Other: # Voids 1 # Bowel Movements 0 Weight 144 lb 3.2 oz Additional comments: this morning he was sitting up in his chair, eating breakfast. He is quite hard of hearing. Neck is supple without obvious lymphadenopathy or JVD. Cardiac exam shows regular rate and rhythm. Lungs are clear to auscultation. Abdomen is soft and nontender. extremities show no edema. Neurologic exam is grossly nonfocal. Medical - DS: Data Labs on day of discharge: Labs from last 24 hours 03/12/16 03/12/16 04:25 04:25 WBC 8.6 RBC 5.14 Hgb 14.9 Hct 46.2 MCV 89.7 MCH 29.0 MCHC 32.3 RDW 13.8 Plt Count 165 MPV 9.9 Total Counted 100 Seg Neutrophils % 88 H Band Neutrophils % Not Reportable Lymphocytes % 7 L Monocytes % (Manual) 2 Eosinophils % (Manual) 3 Platelet Estimate Normal RBC Morphology Normal Sodium 140 Potassium 3.8 Chloride 102 Carbon Dioxide 27 Anion Gap 11.0 BUN 13 Creatinine 0.8 GFR Calculation 83 Glucose 116 H Uric Acid 4.9 Calcium 8.9 Phosphorus 3.0 Magnesium 1.7 Total Bilirubin 0.8 Direct Bilirubin < 0.2 GGT 12 AST 21 ALT 10 Alkaline Phosphatase 66 Lactate Dehydrogenase 158 Total Protein 6.1 Albumin 3.5 Globulin 2.6 Albumin/Globulin Ratio 1.3 Triglycerides 136 MRI shows no intracerebral hemorrhage or acute infarct. There is mild chronic ischemic change. There is small remote lacunar infarcts in the right. Trigonal white matter and right corpus callosum just new. 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 urinalysis from March 09, 2016, shows pH of 5.0, specific gravity 1.021, protein of 100, 20 ketones, 0.03 occult blood, negative nitrites and leukocyte esterase Medical - DS: A/P - Patient/Caregiver Discharge Instructions Activity: ambulate only with your walker, as per physical therapy, increase activity as tolerated Diet: Low Sodium (2gm) Other Amb Orders: OT Discharge Order Location: Determined By Patient Physical Therapy at Discharge - General Location: Determined By Patient - Follow up Plan Follow up with: Robert Lawrence MD [Primary Care Provider] - 03/18/16 10:00 am Disposition: Home, Self-Care Prognosis: Fair Rehab Potential: Fair Overall status at discharge: patient is progressing back to baseline Medical - DS: Qual - VTE Deep Vein Thrombosis/Pulmonary Embolism Present on Admission: No
== END 2016-03-12 11:00 | disposition home or self-care (01) ==
LOC: ED 14:49 → ICU 14:49 → SUATTDRO 19:28 → ICU 19:38
PROVIDERS: ADMIT Internal Medicine; ATTEND Internal Medicine

== ENCOUNTER 2018-09-23 16:03 | Inpatient (IN) ==
--- NOTE | 2018-09-23 16:20 | Emergency Department Note ---
Nausea/Vomiting/Diarrhea HPI - General Chief complaint: Nausea/Vomiting/Diarrhea Stated complaint: HTN, Nausea Time Seen by Provider: 09/23/18 16:10 Source: RN notes reviewed, other Mode of arrival: ambulatory Limitations: no limitations - History of Present Illness HPI Narrative: Patient had bladder surgery today by Dr. Guallpa and he has been in recovery since. He is been having increased pain with nausea was brought down to the ED for further evaluation. His main complaint was nausea but while in the ED is complaining of increased pain now. His bladder scan is showing 0Pulse is 82 the respirations are 19 the blood pressure 163/91 and pulse ox is 98% on room air he rates the pain is an 8/10 patient states his pain is in the suprapubic region - Related Data Home Medications Medication Instructions Recorded Confirmed Calcium/D3/Mag Ox/Trailer Tank [employer]/Gera/Zn 1 tab PO DAILY 03/07/16 09/16/18 [Caltrate+D3 Plus Mineral Minis] Ferrous Gluconate [Fergon] 324 mg PO DAILY 03/07/16 09/16/18 Levothyroxine [Synthroid] 100 mcg PO DAILY 03/07/16 09/16/18 Losartan [Cozaar] 50 mg PO DAILY 03/07/16 09/07/18 Omeprazole [Prilosec] 20 mg PO DAILY 03/07/16 09/16/18 [place]-3/Dha/Epa/Fish Oil [Fish Oil 1,000 mg PO DAILY 03/10/16 09/16/18 1,000 mg Softgel] aspirin 81 mg tablet,delayed 81 mg PO QDAY 08/31/18 09/16/18 release atorvastatin 20 mg tablet 20 mg PO QDAY 08/31/18 09/16/18 blood sugar diagnostic strips See Dose Instructions .ROUTE 08/31/18 09/07/18 .MEDSUPPLY #10 each cyanocobalamin (vit B-12) 500 mcg 1,500 mcg PO QDAY tab 08/31/18 09/16/18 tablet magnesium oxide 400 mg (241.3 mg 400 mg PO QDAY tab 08/31/18 09/16/18 magnesium) tablet metformin 500 mg tablet 500 mg PO QDAY tab 08/31/18 09/16/18 metoprolol tartrate 25 mg tablet 25 mg PO QDAY tab 08/31/18 09/16/18 nitroglycerin 0.4 mg sublingual 0.4 mg SUBLINGUAL Q5-15M PRN 08/31/18 09/16/18 tablet ramipril 1.25 mg capsule 1.25 mg PO QDAY 08/31/18 09/16/18 Previous Rx's Medication Instructions Recorded Acetaminophen [Tylenol] 650 mg PO Q4-6HP PRN #0 tab 03/12/16 Multivit,Ther Iron,Ca,FA & Min 1 tab PO DAILY tab 03/12/16 [Multivitamin W/Minerals] Allergies Allergy/AdvReac Type Severity Reaction Status Date / Time levofloxacin [From Levaquin] AdvReac Severe Seizure Verified 09/23/18 16:12 sulfamethoxazole AdvReac Severe Seizure Verified 09/23/18 16:12 [From Bactrim] tramadol AdvReac Severe Seizure Verified 09/16/18 14:25 trimethoprim [From Bactrim] AdvReac Severe Seizure Verified 09/16/18 14:25 Review of Systems All systems ED: reviewed and negative except as stated. Constitutional: Denies: fever, chills Gastrointestinal: Reports: as per HPI, abdominal pain, nausea, vomiting. Denies: diarrhea, constipation Genitourinary: Reports: as per HPI, hematuria (Has a Meyer catheter) Musculoskeletal: Denies: back pain Integumentary: Denies: rash Neurological: Denies: headache Psychiatric: Denies: anxiety Endocrine: Denies: fatigue Hematological/Lymphatic: Denies: easy bleeding Allergic/Immunologic: Denies: facial swelling Past Medical History - Past Medical History [facility] Narrative: All Active Problems (Last Reviewed 09/07/18 @ 13:35 by Lanette Lyles RN) Hiatal hernia (Chronic) Lymphoma (Chronic) Radiation proctitis (Chronic) Adenomatous polyp (Chronic) Edema (Chronic) Easy bruising (Chronic) Heart murmur (Chronic) [place] (hard of hearing) (Chronic) Hemorrhoids (Chronic) Numbness and tingling of left leg (Chronic) Lack of sexual desire (Chronic) History of radiation therapy (Chronic ~2010) Monoclonal gammopathy of undetermined significance (Chronic) Iron deficiency anemia (Chronic) History of prostate cancer (Chronic) Non Hodgkin's lymphoma (Chronic ~2010) Hematuria (Chronic) Impacted cerumen (Chronic) UTI (urinary tract infection) (Chronic) Dehydration (Chronic) B12 deficiency (Chronic) Abnormal gait (Chronic) Seizure (Chronic) New onset seizure (Chronic) Acute anxiety (Chronic) NSTEMI (non-ST elevated myocardial infarction) (Chronic) Second degree AV block (Chronic) Near syncope (Chronic) GI bleed (Chronic) Diverticulitis (Chronic) Hypertension (Chronic) Skin neoplasm (Chronic) Past Surgical History (Last Reviewed 09/07/18 @ 13:35 by Lanette Lyles RN) History of vasectomy (Acute) S/P triple vessel bypass (Acute) History of biopsy (Chronic) Family History (Last Reviewed 09/07/18 @ 13:35 by Lanette Lyles RN) Brother Cancer Mother Cancer Other No pertinent family history Medical history: Reports: cancer (prostate and lymphoma), GERD, hypertension, kidney stones, thyroid disease, other (Parkinson-like movement disorder; prostate cancer) Surgical history ED: Reports: orthopedic, other (back surgery), tonsillectomy - Social History smoking status: Former smoker Alcohol use: Reports: None Drug use: Reports: none Physical Exam Limitations: no limitations General appearance: alert Head: atraumatic, normocephalic Eye: Present: normal appearance, PERRL ENT: normal exam, normal oropharynx, mucous membranes moist Neck: Present: normal inspection, full ROM, trachea midline Chest: Present: normal inspection, symmetric chest wall rise. Absent: tenderness Respiratory: Present: normal lung sounds bilaterally. Absent: respiratory distress, rales/crackles, wheezes Cardiovascular: Present: regular rate, normal rhythm. Absent: bradycardia, tachycardia Abdominal: Present: soft. Absent: distention, tenderness : Present: normal inspection, other (Has Meyer catheter bloody urine as he a bladder cancer resection) Course Vital Signs Pulse Rate 82 09/23/18 16:05 Respiratory Rate 19 09/23/18 16:05 Blood Pressure 163/91 09/23/18 16:05 Pulse Oximetry (%) 98 09/23/18 16:05 Pulse Rate 97 H 09/23/18 19:16 Respiratory Rate 21 09/23/18 19:16 Blood Pressure 123/70 09/23/18 19:16 Pulse Oximetry (%) 94 09/23/18 19:16 Nausea/Vomiting/Diarrhea - MDM Narrative Medical decision making narrative: UBC is 20,500 to hemoglobin 13.4 hematocrit 40.9. Chest x-ray was negative. CT of the abdomen reveals large amount of blood in the bladder with a catheter was irrigated initially with a small return of adjacent fluid. After Jolene, radiologist, recommended irrigation and hopefully be able to do a cystogram to be sure that there was no perforation. There is ascites noted in the abdomen. Patient irrigated profusely with return of clots and and irrigation fluid clearing with each flushing.. Chest x-ray shows no obvious infiltrates over CT of the abdomen reveals possible atelectasis versus infiltrate in the left lower lobe patient has a elevated white count 20,000 patient started on Rocephin and Zithromax lactic acid came back elevated at 2.8. Dr Guallpaed AND CONSULTED. Patient to be admitted under Dr. Guallpa 2 units blood has been ordered for CROSS and hold. CT of the abdomen did not show extravasation of the dye but there is fluid and air noted in the peritoneum. Dr. Fernández cannot rule out possible perforation. Patient to be admitted to Dr. Guallpa vital signs to be monitored closely - Lab Data Result diagrams: 09/23/18 15:17 09/23/18 15:17 Lab Results 09/23/18 09/23/18 09/23/18 Range/Units 15:17 15:17 17:34 WBC 20.5 H (4.5-11.0) K/mcL RBC 4.36 L (4.50-5.90) M/mcL Hgb 13.4 L (13.5-16.5) g/dL Hct 40.9 L (41.0-55.0) % MCV 93.9 (80.0-100.0) fL MCH 30.8 (26.0-34.0) pg MCHC 32.8 (31.0-36.0) g/dL RDW 12.9 (11.5-14.5) % Plt Count 206 (140-440) K/mcL MPV 10.4 (7.4-10.4) fL Gran % 95.3 H (38.0-78.0) % Lymph % (Auto) 2.0 L (15.5-49.0) % Charles % (Auto) 2.7 (1.0-12.0) % Eos % (Auto) 0 (0.0-7.0) % Baso % (Auto) 0 (0.0-2.0) % Gran # 19.5 H (1.8-8.0) K/mcL Lymph # (Auto) 0.4 L (1.5-4.8) K/mcL Charles # (Auto) 0.6 (0.1-0.9) K/mcL Eos # (Auto) 0 (0.0-0.7) K/mcL Baso # (Auto) 0 (0.0-0.3) K/mcL VBG Lactic Acid 2.8 H (0.5-2.0) mmol/L Sodium 128 L (133-145) mmol/L Potassium 3.3 (3.3-5.1) mmol/L Chloride 95 L (96-108) mmol/L Carbon Dioxide 16 L (22-30) mmol/L Anion Gap 17.0 H (8-16) BUN 33 H (8-23) mg/dl Creatinine 1.2 (0.7-1.2) mg/dl GFR Calculation 55 Glucose 239 H (70-105) mg/dL Calcium 7.9 L (8.6-10.4) mg/dl Total Bilirubin 2.1 H (0.0-1.0) mg/dL AST 45 H (0-37) U/l ALT 14 (0-40) U/l Alkaline Phosphatase 80 (39-117) U/L Total Protein 6.2 (5.9-8.4) gm/dL Albumin 3.4 (3.2-5.2) gm/dL Globulin 2.8 (2.2-3.7) gm/dL Albumin/Globulin Ratio 1.2 (1.0-2.3) Disposition Pt seen by [facility]YOR FEEDER/PA only: No Clinical Impression: Leukocytosis Post-op bleeding Qualifiers: Surgical complication system/body Area: genitourinary Disposition: Xfer As Inpt ([facility]) Condition: Fair Referrals: Robert Lawrence MD [Primary Care Provider] - Time of Disposition: 19:19
[2018-09-23] MEDS ORDERED: ONDANSETRON 4 MG/2 ML VIAL IV ONE (16:24)
--- NOTE | 2018-09-23 16:33 | XRay Report ---
CLINICAL INFORMATION: Post operative ED admission COMPARISON: 03/09/2016 FINDINGS: Heart size, mediastinum and pulmonary vessels are normal. Moderate subsegmental atelectasis seen in the lung bases. No effusion. IMPRESSION: Moderate bibasilar subsegmental atelectasis. Interpreted and Authenticated by: Uzair Fernández 09/23/18
[2018-09-23 16:40] LABS: Basophils # (Auto) 0 K/mcL (0.0-0.3); Basophils % (Auto) 0 % (0.0-2.0); Eosinophils # (Auto) 0 K/mcL (0.0-0.7); Eosinophils % (Auto) 0 % (0.0-7.0); Granulocytes % (Auto) 95.3 % (38.0-78.0); Hematocrit 40.9 % (41.0-55.0); Hemoglobin 13.4 g/dL (13.5-16.5); Lymphocytes # (Auto) 0.4 K/mcL (1.5-4.8); Mean Cell Volume 93.9 fL (80.0-100.0); Mean Corpuscular HGB Conc 32.8 g/dL (31.0-36.0); Mean Platelet Volume 10.4 fL (7.4-10.4); Monocytes # (Auto) 0.6 K/mcL (0.1-0.9); Monocytes % (Auto) 2.7 % (1.0-12.0); Platelet Count 206 K/mcL (140-440); RBC 4.36 M/mcL (4.50-5.90); Red Cell Distribution Width 12.9 % (11.5-14.5); WBC 20.5 K/mcL (4.5-11.0)
[2018-09-23] MEDS: HYDROmorphone 2 MG/ML VIAL IV PRN ×2 (16:46→17:37)
[2018-09-23 17:07] LABS: ALT/SGPT 14 U/l (0-40); AST/SGOT 45 U/l (0-37); Albumin 3.4 gm/dL (3.2-5.2); Albumin/Globulin Ratio 1.2 (1.0-2.3); Alkaline Phosphatase 80 U/L (39-117); Bilirubin,Total 2.1 mg/dL (0.0-1.0); Blood Urea Nitrogen 33 mg/dl (8-23); Calcium 7.9 mg/dl (8.6-10.4); Carbon Dioxide 16 mmol/L (22-30); Chloride 95 mmol/L (96-108); Globulin 2.8 gm/dL (2.2-3.7); Glomerular Filtration Rate 55; Glucose 239 mg/dL (70-105)
--- NOTE | 2018-09-23 17:55 | Cat Scan Report ---
CLINICAL INFORMATION: Bladder tumor resection today. Persistent nausea vomiting and dizziness. COMPARISON: 03/21/2018. TECHNIQUE: IV contrast was withheld due to elevated creatinine 0.625 mm helical slices were obtained from the mid heart through the subtrochanteric regions. Following reconstruction, 2.5 mm sagittal, coronal and axial reformatted images were processed and reviewed at bone and soft tissue windows.The exam was performed using radiation dose optimization techniques including, but not limited to, automated exposure control, adjustment of the mA and/or kV according to patient size and use of iterative reconstruction technique. FINDINGS: Moderate patchy airspace disease posterior right lower lobe is likely atelectasis. Complete atelectasis of the medial and posterior basilar segments left lower lobe appreciated. Tiny bilateral pleural effusions noted. Moderate hiatal hernia is again seen. The heart is mildly enlarged with heavy calcified plaque in the coronary arteries Images of the abdomen show the gallbladder is mildly enlarged. The noncontrasted liver, both adrenal glands, spleen, pancreas and aorta are unremarkable. Scattered cysts in both kidneys seen as before. Both upper collecting systems and ureters are dilated (moderate hydronephrosis due bladder outlet obstruction from large amount of hemorrhage in the urinary bladder. Meyer catheter is in satisfactory position. There is also a moderate amount of extraperitoneal gas in the perivesical region with extension into the anterior extraperitoneal space and in the retroperitoneum posteriorly particularly in the pararenal space. The stomach, small and large bowel show mild ileus pattern is mild sigmoid diverticulosis again seen. Moderate left and small right inguinal hernia contains small bowel of gas and edema. Bone windows show show lumbar fusion changes laminectomy lower lumbar spine. No focal osseous lesions. IMPRESSION: 1. Large amount of hemorrhage filling the urinary bladder. Meyer catheter is in satisfactory position, but apparently not draining. Bladder outlet obstruction has resulted in moderate bilateral hydroureter/hydronephrosis. Modest hemorrhage in both upper collecting systems and ureters likely represents ureteral reflux from the bladder. 2. Moderate extraperitoneal gas in the perivesical region and extending superiorly in the anterior extraperitoneal space and posteriorly in the retroperitoneum particularly the pararenal space. Moderate simple free intraperitoneal fluid appreciated. This may have resulted from a breech in the urinary bladder wall. Following bladder irrigation, suggest cystogram to ensure the urinary bladder wall is intact following tumor resection 3. Small bilateral pleural effusions. Atelectasis in the medial posterior basilar segment left lower lobe small infiltrate versus melanoma atelectasis posterior right lower lobe Interpreted and Authenticated by: Uzair Fernández 09/23/18
[2018-09-23] MEDS ORDERED: cefTRIAXone 1 GM in DEXTROSE 5% IN WATER 50 ML IV ONE (18:32)
[2018-09-23] MEDS ORDERED: AZITHROMYCIN 500 MG in DEXTROSE 5% IN WATER 250 ML IV ONE (18:32)
[2018-09-23] MEDS ORDERED: 0.9 % SODIUM CHLORIDE 1,000 ML IV ONE (18:55)
[2018-09-23] MEDS ORDERED: 0.9 % SODIUM CHLORIDE 1,000 ML IV SCH (19:30)
[2018-09-23] MEDS: 0.9 % SODIUM CHLORIDE 1,000 ML IV ONE ×2 (19:44→21:40)
--- NOTE | 2018-09-23 20:09 | Internal Medicine Consult Note ---
Medical - CN: HPI - Data of Consult Consult date: 09/23/18 Primary Care Provider: Robert Lawrence - Consult Narrative Reason for consult: sepsis , pneumonia? Medical management History of present illness: Mr. Golden is a 83 year old M with multiple medical problems, hard of hearing presented to the emergency room from the operating room today. The patient is hard of hearing most of the history provided by his . The patient was scheduled for a bladder tumor resection. Postoperatively after the tumor resection the patient developed abdominal pain nausea and was hypertensive. He was sent to the emergency room for further evaluation. Patient had no fever, he was dizzy, he has chronic cough but no chest pain no acute shortness of breath, no diarrhea, he did have hematuria, he had no new joint pains or skin rashes. Prior to the procedure patient had chronic cough that is been bothering him for a few months otherwise he was at his baseline status, there is no history of fever chills nausea vomiting abdominal pain or any other acute complaints before the patient presented for the procedure today. In the emergency room patient on presentation was hemodynamically stable, afebrile and maintaining oxygen saturation more than 90% on room air. His labs show WBC count of 20,000, hemoglobin 13.4 platelets 206, neutrophil count is of 95%, lactic acid is 2.8, sodium 128 potassium 3.3 bicarb 16 BUN 33 creatinine 1.2 glucose 239 total bilirubin 2.1 AST 45 ALT 14 alk phos 80 Patient underwent abdomen and pelvis CT which shows large amount of hemorrhage filling the urinary bladder, Meyer catheter in position. Moderate bilateral hydronephrosis. Moderate extraperitoneal gas in the deena-was likely region extending superiorly in the anterior extraperitoneal space and posteriorly in the retroperitoneum. Likely resulted from a breech of the bladder wall. Small bilateral pleural effusion and atelectasis in the medial posterior basal segment of the lower lobe possible infiltrate in the right lower lobe versus at electasis Patient has been admitted to the hospital for further management CC: All systems: reviewed and no additional remarkable complaints except as stated (as per HPI rest negative. Pt has no cp or sob, but does have hypogastric abdominal pain) Medical - CN: [facility] Medical history: Medical History (Last Reviewed 09/07/18 @ 13:35 by Lanette Lyles RN) Hiatal hernia (Chronic) Lymphoma (Chronic) Radiation proctitis (Chronic) Adenomatous polyp (Chronic) Edema (Chronic) Easy bruising (Chronic) Heart murmur (Chronic) [place] (hard of hearing) (Chronic) Hemorrhoids (Chronic) Numbness and tingling of left leg (Chronic) Lack of sexual desire (Chronic) History of radiation therapy (Chronic ~2010) Monoclonal gammopathy of undetermined significance (Chronic) Iron deficiency anemia (Chronic) History of prostate cancer (Chronic) Non Hodgkin's lymphoma (Chronic ~2010) Hematuria (Chronic) Impacted cerumen (Chronic) UTI (urinary tract infection) (Chronic) Dehydration (Chronic) B12 deficiency (Chronic) Abnormal gait (Chronic) Seizure (Chronic) New onset seizure (Chronic) Acute anxiety (Chronic) NSTEMI (non-ST elevated myocardial infarction) (Chronic) Second degree AV block (Chronic) Near syncope (Chronic) Surgical history: Past Surgical History (Last Reviewed 09/07/18 @ 13:35 by Lanette Lyles RN) History of vasectomy (Acute) S/P triple vessel bypass (Acute) History of biopsy (Chronic) Pertinent family history: Family History (Last Reviewed 09/07/18 @ 13:35 by Lanette Lyles, [place]) Brother Cancer Mother Cancer Other No pertinent family history Medical - CN: Meds Home Medications Medication Instructions Recorded Confirmed Type Ferrous Gluconate [Fergon] 324 mg PO DAILY 03/07/16 09/23/18 History Levothyroxine [Synthroid] 100 mcg PO DAILY 03/07/16 09/23/18 History Omeprazole [Prilosec] 20 mg PO DAILY 03/07/16 09/23/18 History [place]-3/Dha/Epa/Fish Oil [Fish Oil 1,000 mg PO DAILY 03/10/16 09/23/18 History 1,000 mg Softgel] Multivit,Ther Iron,Ca,FA & Min 1 tab PO DAILY tab 03/12/16 09/23/18 Rx [Multivitamin W/Minerals] aspirin 81 mg tablet,delayed 81 mg PO QDAY 08/31/18 09/23/18 History release atorvastatin 20 mg tablet 20 mg PO HS 08/31/18 09/23/18 History blood sugar diagnostic strips See Dose Instructions .ROUTE 08/31/18 09/23/18 History .MEDSUPPLY #10 each metformin 500 mg tablet 500 mg PO QDAY tab 08/31/18 09/23/18 History metoprolol tartrate 25 mg tablet 25 mg PO QDAY tab 08/31/18 09/23/18 History nitroglycerin 0.4 mg sublingual 0.4 mg SUBLINGUAL Q5-15M PRN 08/31/18 09/23/18 History tablet Allergies Allergy/AdvReac Type Severity Reaction Status Date / Time levofloxacin [From Levaquin] AdvReac Severe Seizure Verified 09/23/18 16:12 sulfamethoxazole AdvReac Severe Seizure Verified 09/23/18 16:12 [From Bactrim] tramadol AdvReac Severe Seizure Verified 09/16/18 14:25 trimethoprim [From Bactrim] AdvReac Severe Seizure Verified 09/16/18 14:25 Medical - CN: Exam - Constitutional Vitals: Pulse Resp BP Pulse Ox 97 H 21 123/70 94 09/23/18 19:16 09/23/18 19:16 09/23/18 19:16 09/23/18 19:16 Exam: GENERAL: The patient is a thin frail individual, well-nourished in no apparent distress. Is alert and oriented x3. VITAL SIGNS: Reviewed and as noted elsewhere. HEENT: Head is normocephalic and atraumatic. Extraocular muscles are intact. Pupils are equal, round, and reactive to light. Nares appeared normal. Mouth appears any without lesions. Mucous membranes are moist. Hard to hear but able to hold conversation NECK: Normal to inspection, Supple, No lymphadenopathy or thyromegaly. LUNGS: Air entry equal on both sides, no wheezing, crackles or rhonchi noted. No accessory muscles of respiration HEART: Regular rate and rhythm normal, S1 and S2 heard, no Gallop, S3 or Rub Noted, No Gross murmur heard. ABDOMEN: Soft, tender in the hypogastric region, and nondistended. Positive but hypoactive bowel sounds. No hepatosplenomegaly was noted. EXTREMITIES: No cyanosis, clubbing, rash, lesions ,edema + NEUROLOGIC: Cranial nerves II through XII are grossly intact. Motor and Sensory System Grossly Intact PSYCHIATRIC: Normal affect, Normal Mood. Appropriate Behavior. SKIN: No ulceration or wounds noted, No jaundice, No rash noted. Medical - CN: Result - Labs CBC & Chem 7: 09/23/18 15:17 09/23/18 15:17 Labs: Short CBC 09/23/18 Range/Units 15:17 WBC 20.5 H (4.5-11.0) K/mcL Hgb 13.4 L (13.5-16.5) g/dL Hct 40.9 L (41.0-55.0) % Plt Count 206 (140-440) K/mcL BMP 09/23/18 15:17 Sodium 128 L Potassium 3.3 Chloride 95 L Carbon Dioxide 16 L BUN 33 H Creatinine 1.2 Glucose 239 H Calcium 7.9 L Liver Function 09/23/18 Range/Units 15:17 Total Bilirubin 2.1 H (0.0-1.0) mg/dL AST 45 H (0-37) U/l ALT 14 (0-40) U/l Alkaline Phosphatase 80 (39-117) U/L Albumin 3.4 (3.2-5.2) gm/dL Medical - CN: A/P - Narrative A/P Narrative: A/P Bladder perforation -post procedure for bladder resection, -Urology is following/ -Bladder irrigation to hopefully avoid and remove clots Sepsis/Inflammatory response -Elevated WBC -Recent urinary procedure -will cover with Vanco and zosyn for now -cultures sent -BP stable, IV fluids, Lactic Acidosis -Trend Lactate, IV fluids DM -SSI insulin for glucose control HTN -Hold bp meds till bp stable x 24 hrs -resume home meds once verified CAD/S/p CABG -No cp reported - h/o lymphoma, h/o CA prosate, positive SPEP -outpatient follow up DVT SCD for now FUll code Soft diet. Social History - Social History household members: spouse marital status: - Tobacco smoking status: Former smoker - Alcohol alcohol intake frequency: does not drink - Substance use substance use type: does not use
[2018-09-23] MEDS ORDERED: NALOXONE HCL 0.4 MG/ML VIAL IV PRN (20:18)
[2018-09-23] MEDS ORDERED: VANCOMYCIN 1,000 MG in 0.9 % SODIUM CHLORIDE 250 ML IV ONE (20:18)
[2018-09-23] MEDS ORDERED: ONDANSETRON 4 MG/2 ML VIAL IV PRN (20:18)
[2018-09-23] MEDS ORDERED: VANCOMYCIN PER PHARMACY IV ONE (20:18)
[2018-09-23] MEDS ORDERED: IPRATROPIUM/ALBUTEROL 3 ML AMPUL.NEB NEB PRN (20:18)
[2018-09-23] MEDS ORDERED: oxyCODONE HCL 5 MG TABLET PO PRN (20:18)
[2018-09-23] MEDS ORDERED: NITROGLYCERIN 0.4 MG TAB.SUBL SL PRN (20:32)
[2018-09-23] MEDS ORDERED: DEXTROSE 31 GM ORAL.SUSP PO PRN (20:32)
[2018-09-23] MEDS ORDERED: DEXTROSE 50% 50 ML VIAL IV PRN (20:32)
[2018-09-23] MEDS ORDERED: HYDROmorphone 2 MG/ML VIAL ONE (20:52)
[2018-09-23] MEDS: LACTATED RINGERS 1,000 ML IV SCH (21:13)
[2018-09-23] MEDS: PIPERACILLIN SODIUM/TAZOBACTAM 3.375 GM in DEXTROSE 5% IN WATER 50 ML IV SCH (21:18)
[2018-09-23] MEDS: ATORVASTATIN 20 MG TABLET PO SCH (21:19)
[2018-09-23] MEDS: FAMOTIDINE/PF 20 MG/2 ML VIAL IV SCH (21:29)
[2018-09-23] MEDS: 0.9 % SODIUM CHLORIDE 10 ML SYRINGE IV SCH (21:29)
[2018-09-23 21:41] LABS: POC Blood Urea Nitrogen 36 mg/dl (8-23); POC CO2 16 mmol/L (22-30); POC Calcium, Ionized 0.95 mmol/L (1.16-1.32); POC Chloride 100 mmol/L (96-108); POC Creatinine 1.2 mg/dl (0.7-1.2); POC Glucose, Random 291 mg/dL (70-105); POC Potassium 3.8 mmol/L (3.3-5.1); POC Sodium 129 mmol/L (133-145)
[2018-09-23] MEDS: INSULIN LISPRO 1 UNIT/0.01 ML UNIT SQ SCH (22:10)
[2018-09-24] MEDS: HYDROmorphone 2 MG/ML VIAL IV PRN ×3 (00:06→14:44)
[2018-09-24 00:13] LABS: Appearance,Urine TURBID; Bacteria,Urine 0 /hpf (0); Bilirubin,Urine NEG (NEG); Color,Urine RED; Culture Indicated,Urine YES; Glucose,Urine (UA) 100 mg/dL (NEG); Ictotest,Urine NEG (NEG); Ketones,Urine NEG (NEG); Leukocyte Esterase,Urine NEG /uL (NEG); Nitrate,Urine NEG (NEG); Protein,Urine >=300 mg/dL (NEG); Urine Blood 3+ (LARGE) ery/mcL (<5); Urine RBC > 182 /hpf (0-1); Urine Squamous Epithelial Cell 0 /hpf (0-4); Urine WBC 108 /hpf (0-4); Urobilinogen,Urine NORM (NEG)
[2018-09-24] MEDS: PIPERACILLIN SODIUM/TAZOBACTAM 3.375 GM in DEXTROSE 5% IN WATER 50 ML IV SCH ×5 (01:09→23:22)
[2018-09-24] MEDS: LACTATED RINGERS 1,000 ML IV SCH ×3 (04:17→17:13)
[2018-09-24 05:33] LABS: Basophils # (Auto) 0 K/mcL (0.0-0.3); Basophils % (Auto) 0 % (0.0-2.0); Eosinophils # (Auto) 0 K/mcL (0.0-0.7); Eosinophils % (Auto) 0 % (0.0-7.0); Granulocytes % (Auto) 87.6 % (38.0-78.0); Hematocrit 36.4 % (41.0-55.0); Hemoglobin 11.7 g/dL (13.5-16.5); Lymphocytes % (Auto) 6.1 % (15.5-49.0); Mean Cell Volume 94.9 fL (80.0-100.0); Mean Corpuscular HGB Conc 32.1 g/dL (31.0-36.0); Mean Platelet Volume 10.8 fL (7.4-10.4); Monocytes % (Auto) 6.3 % (1.0-12.0); Platelet Count 201 K/mcL (140-440); RBC 3.84 M/mcL (4.50-5.90); Red Cell Distribution Width 13.2 % (11.5-14.5); WBC 15.7 K/mcL (4.5-11.0)
[2018-09-24 05:46] LABS: ALT/SGPT 16 U/l (0-40); AST/SGOT 36 U/l (0-37); Albumin 3.1 gm/dL (3.2-5.2); Albumin/Globulin Ratio 1.1 (1.0-2.3); Alkaline Phosphatase 66 U/L (39-117); Bilirubin,Direct < 0.2 mg/dL (0.0-0.3); Bilirubin,Total 0.6 mg/dL (0.0-1.0); Blood Urea Nitrogen 39 mg/dl (8-23); Calcium 7.7 mg/dl (8.6-10.4); Carbon Dioxide 14 mmol/L (22-30); Chloride 95 mmol/L (96-108); Globulin 2.7 gm/dL (2.2-3.7); Glomerular Filtration Rate 42; Glucose 261 mg/dL (70-105); Lactate Dehydrogenase 373 U/L (94-250); Phosphorous 4.7 mg/dL (2.7-4.5); Triglycerides 88 mg/dl (<150); Uric Acid 6.1 mg/dL (2.5-8.0)
[2018-09-24] MEDS ORDERED: VANCOMYCIN PER PHARMACY IV SCH (07:00)
--- NOTE | 2018-09-24 08:06 | Consultation ---
DATE OF CONSULTATION: 09/23/2018 REQUESTING PHYSICIAN: Dr. Colby. HISTORY OF PRESENT ILLNESS: The patient is an 83-year-old gentleman who we took to surgery yesterday for a bladder tumor. He did have mitomycin instilled postoperatively. Postoperatively, he did have nausea, vomiting and blood in his urine. He also had hypertension. He was sent to the emergency room and was evaluated there. A CT scan was obtained which showed extraperitoneal extravasation of air into that space. It appears that there was a perforation of the bladder. He was admitted to the hospital and I do appreciate Dr. Colby's help. It appears that there was a perforation, questionable of aspiration pneumonia. Prior to the surgery, the patient does have a chronic cough. He also has a history of prostate cancer and did receive radiation therapy. His white count was 20,000. He was admitted to the hospital overnight. PAST MEDICAL HISTORY: Significant for lymphoma, edema, heart murmur, hard of hearing, monoclonal gammopathy of unknown significance, AV block. PAST SURGICAL HISTORY: A vasectomy, TURBT and radiation to the prostate. FAMILY HISTORY: Cancer. SOCIAL HISTORY: He used to smoke. He lives with his . REVIEW OF SYSTEMS: CARDIAC: Denies any chest pain. RESPIRATORY: No wheezing, coughing, or asthma. PSYCHOLOGICAL: No depression or mood swings. The rest of a 12-point review of systems is negative. PHYSICAL EXAMINATION: GENERAL: This is a pleasant gentleman in no apparent distress, lying in bed. VITAL SIGNS: As noted. HEENT: Atraumatic, normocephalic. Extraocular movements are intact. Pupils equal, reactive to light and accommodation. NECK: Supple. LUNGS: Decreased sounds in the bases. HEART: Regular rate and rhythm. ABDOMEN: Soft, nontender. GENITOURINARY: Scrotum without lesion. No hydrocele, no varicocele. Epididymides are without cysts. Testes are normal size and consistency. Penis is uncircumcised, able to retract his foreskin. Meyer catheter is in place. Prostate exam was deferred. EXTREMITIES: Without clubbing, cyanosis or edema. NEUROLOGIC: Cranial nerves II-XII grossly intact. IMPRESSION: The patient with a bladder perforation. He does have clots and I was able to irrigate these free. At this point, his urine is still blood-tinged, but flowing better. PLAN: I talked to Dr. Colby about this. The treatment will be keeping a Meyer catheter in for at least a week or two. I would have him keep on maintenance IV to make sure there is urine output. If there is a problem the nurses have been instructed to give a call about the catheter. I have gone over this with the patient and we will visit with his family later on today. RashidZ:viviana Job ID: [id number] Doc ID: [id number] Eugene Guallpa MD
[2018-09-24] MEDS: LEVOTHYROXINE 100 MCG TABLET PO SCH (08:51)
[2018-09-24] MEDS: OMEPRAZOLE 20 MG CAPSULE PO SCH (08:52)
--- NOTE | 2018-09-24 09:01 | XRay Report ---
CLINICAL INFORMATION: Transcatheter resection of bladder tumor. CT demonstrating perivesical gas and fluid. Evaluate for bladder rupture COMPARISON: Abdomen and pelvic CT 09/23/2018 TECHNIQUE: Following shoe cutter imaging, Cystografin was instilled through indwelling Meyer catheter. Only a total of 75 cc were injected due to the presence of a large amount of intravesical hemorrhage resulting in increased injection pressures. FINDINGS: There is modest contrast in the periphery of the bladder. No gross evidence of extravasation to demonstrate bladder perforation. Large filling defect in the bladder represents congealed hemorrhage IMPRESSION: Large amount of bladder hemorrhage. No gross evidence of extravasation to suggest perforation. Follow-up CT can be performed Interpreted and Authenticated by: Uzair Fernández 09/24/18
--- NOTE | 2018-09-24 09:16 | Cat Scan Report ---
CLINICAL INFORMATION: Transcatheter resection of bladder tumor earlier today. Increasing pain and difficulty voiding and hematuria. The gas and fluid on recent CT. Evaluate for bladder perforation. COMPARISON: Noncontrast Abdomen and pelvic CT 09/23/2018 at 1710 hours FINDINGS: The examination was performed following cystographic installation of contrast. A large amount of hemorrhage persists within the urinary bladder. The contrast is seen predominantly in the mid /posterior lateral periphery which does not demonstrate a extravasation site. Unfortunately, there is no contrast adjacent to the anterior wall to exclude this as a site of perforation. Moderate extraperitoneal gas and fluid again seen. The visualized small large bowel are normal. IMPRESSION: Bladder perforation site is not identified. It does not appear to be in the mid or posterior aspect of the bladder as there is contrast outlining this region. Presumably, the site of perforation anteriorly which would account for extravesical fluid and gas. Interpreted and Authenticated by: Uzair Fernández 09/24/18
[2018-09-24] MEDS: 0.9 % SODIUM CHLORIDE 10 ML SYRINGE IV SCH ×3 (09:23→20:35)
[2018-09-24] MEDS: FAMOTIDINE/PF 20 MG/2 ML VIAL IV SCH ×2 (09:25→20:34)
--- NOTE | 2018-09-24 10:01 | Internal Med Progress Note ---
Medical - PN: Subj Patient information: Note initiated : 09/24/18 at 9:58 am Service Date, if different from initiated Date: [] Patient: Bakari Golden 83 y/o M admitted on 09/23/18 for HTN, Nausea. Chief Complaint: [] Interval history: Mr. Golden is a 83 year old M with multiple medical problems, hard of hearing presented to the emergency room from the operating room today. The patient is hard of hearing most of the history provided by his . The patient was scheduled for a bladder tumor resection. Postoperatively after the tumor resection the patient developed abdominal pain nausea and was hypertensive. He was sent to the emergency room for further evaluation. Patient had no fever, he was dizzy, he has chronic cough but no chest pain no acute shortness of breath, no diarrhea, he did have hematuria, he had no new joint pains or skin rashes. Prior to the procedure patient had chronic cough that is been bothering him for a few months otherwise he was at his baseline status, there is no history of fever chills nausea vomiting abdominal pain or any other acute complaints before the patient presented for the procedure today. In the emergency room patient on presentation was hemodynamically stable, afebrile and maintaining oxygen saturation more than 90% on room air. His labs show WBC count of 20,000, hemoglobin 13.4 platelets 206, neutrophil count is of 95%, lactic acid is 2.8, sodium 128 potassium 3.3 bicarb 16 BUN 33 creatinine 1.2 glucose 239 total bilirubin 2.1 AST 45 ALT 14 alk phos 80 Patient underwent abdomen and pelvis CT which shows large amount of hemorrhage filling the urinary bladder, Meyer catheter in position. Moderate bilateral hydronephrosis. Moderate extraperitoneal gas in the deena-was likely region extending superiorly in the anterior extraperitoneal space and posteriorly in the retroperitoneum. Likely resulted from a breech of the bladder wall. Small bilateral pleural effusion and atelectasis in the medial posterior basal segment of the lower lobe possible infiltrate in the right lower lobe versus atelectasis Patient has been admitted to the hospital for further management 09/23 Patient seen and examined, no acute overnight events, no complaints. He has significant clot burden in his bladder, Dr. Guallpa irrigated the bladder today the Meyer was working fine after that Patient white blood cell count is better however lactic acidosis is worsening. He is off oxygen and feels significantly better since yesterday. Even wanted to have a shower today Pertinent ROS: Denies headache, dizziness Denies chest pain, palpitations Denies cough or shortness of breath No nausea or vomiting, abdominal pain is improved. - Constitutional Vitals: Vital Signs Temp Pulse Resp BP Pulse Ox 97.3 F 84 20 96/55 94 09/24/18 08:00 09/24/18 04:28 09/24/18 08:00 09/24/18 08:00 09/24/18 08:00 Period Temp Pulse Resp BP Sys/Alonso Pulse Ox Last 24 Hr 96.7 F-98.0 F 78-99 11-26 96-178/55-123 88-98 Intake and Output 09/23/18 09/24/18 09/24/18 21:59 05:59 13:59 Intake Total 1067 1360 50 Output Total 235 125 Balance 1067 1125 -75 Weight 159 lb 6.4 oz Intake & Output: Intake & Output 09/23/18 09/24/18 09/24/18 21:59 05:59 13:59 Intake Total 1067 1360 50 Output Total 235 125 Balance 1067 1125 -75 Weight 159 lb 6.4 oz Intake: IV 1067 1000 50 Sodium Chloride 0.9% 1,000 ml @ 717 Wide Open IV BOLUS ONE Rx#: [id number] Zithromax 500 mg In Dextrose 5% 250 in Water 250 ml @ 250 mls/hr IV ONCE ONE Rx#:[id number] Lactated Ringers 1,000 ml @ 150 1000 mls/hr IV .[id number] [facility] Rx#: [id number] Zosyn 3.375 gm In Dextrose 5% 50 50 in Water 50 ml @ 100 mls/hr IV Q6H [facility] Rx#:[id number] Rocephin 1 gm In Dextrose 5% in 50 Water 50 ml @ 100 mls/hr IV ONCE ONE Rx#:[id number] GI Tube Flush 360 Output: Urine Catheter Amount 235 125 Other: Urine Color Dark Red Blood Tinged Exam: Constitutional; Afebrile, cooperative, alert, not in distress. Eyes- No icterus, , No periorbital swelling Ears- Ext ear normal, hearing hard to coversation Neck- Midline trachea, supple Respiratory system: Air Entry equal on both sides, No crackles or wheezing, no rhonchi. CVS- Rate rhythm regular, S1,S2 heard, no gallop, no rub. Abdomen- Soft hypogastric tenderness in the abdomen, no organomegaly, no tenderness, no guarding or rigidity, [employer]- AOOx3, moving all extremities, no gross focal deficit noted. Medical - PN: Obj Da - Labs CBC & Chem 7: 09/24/18 04:05 09/24/18 04:05 Labs: Abnormal Lab Results 09/24/18 09/24/18 09/24/18 04:05 04:05 04:05 WBC 15.7 H RBC 3.84 L Hgb 11.7 L Hct 36.4 L POC Hct MPV 10.8 H Gran % 87.6 H Lymph % (Auto) 6.1 L Gran # 13.8 H Lymph # (Auto) 1.0 L [place] # (Auto) 1.0 H VBG Lactic Acid 5.7 H* POC Sodium Sodium 128 L Chloride 95 L Carbon Dioxide 14 L POC Total CO2 Anion Gap 19.0 H POC BUN BUN 39 H Creatinine 1.5 H Glucose 261 H POC Glucose Calcium 7.7 L POC WB Ioniz Calcium Phosphorus 4.7 H Total Bilirubin AST Lactate Dehydrogenase 373 H Total Protein 5.8 L Albumin 3.1 L Urine Glucose (UA) Urine Occult Blood Urine RBC Urine WBC 09/23/18 09/23/18 09/23/18 22:56 21:32 17:34 WBC RBC Hgb Hct POC Hct 35.0 L MPV Gran % Lymph % (Auto) Gran # Lymph # (Auto) [place] # (Auto) VBG Lactic Acid 2.8 H POC Sodium 129 L Sodium Chloride Carbon Dioxide POC Total CO2 16 L Anion Gap POC BUN 36 H BUN Creatinine Glucose POC Glucose 291 H Calcium POC WB Ioniz Calcium 0.95 L Phosphorus Total Bilirubin AST Lactate Dehydrogenase Total Protein Albumin Urine Glucose (UA) 100 A Urine Occult Blood 3+ (large) A Urine RBC > 182 H Urine WBC 108 H 09/23/18 09/23/18 15:17 15:17 WBC 20.5 H RBC 4.36 L Hgb 13.4 L Hct 40.9 L POC Hct MPV Gran % 95.3 H Lymph % (Auto) 2.0 L Gran # 19.5 H Lymph # (Auto) 0.4 L [place] # (Auto) VBG Lactic Acid POC Sodium Sodium 128 L Chloride 95 L Carbon Dioxide 16 L POC Total CO2 Anion Gap 17.0 H POC BUN BUN 33 H Creatinine Glucose 239 H POC Glucose Calcium 7.9 L POC WB Ioniz Calcium Phosphorus Total Bilirubin 2.1 H AST 45 H Lactate Dehydrogenase Total Protein Albumin Urine Glucose (UA) Urine Occult Blood Urine RBC Urine WBC Meds: Medications Acetaminophen (Tylenol) 650 mg PO Q6HP PRN PRN Reason: PAIN/FEVER > 101 Albuterol/Ipratropium (Duoneb) 3 ml NEB Q4HRT PRN PRN Reason: Shortness Of Breath Or Wheezing Atorvastatin Calcium (Lipitor) 20 mg PO HS [facility] Last Admin: 09/23/18 21:19 Dose: Not Given Documented by: Dextrose (Dextrose 50%) 0 ml IV UD PRN PRN Reason: Hypoglycemia Diagnostic Test (Pha) (Accu-Chek) 1 each FS [facility] Last Admin: 09/24/18 09:04 Dose: 1 each Documented by: Famotidine (Pepcid) 20 mg IV Q12 [facility] Last Admin: 09/24/18 09:25 Dose: Not Given Documented by: Glucose (Insta-Glucose) 15 gm PO PRN PRN PRN Reason: Hypoglycemia Hydromorphone HCl (Dilaudid) 0.5 mg IV Q2HP PRN PRN Reason: Pain Last Admin: 09/24/18 07:20 Dose: 0.5 mg Documented by: Piperacillin Sod/Tazobactam (Sod 3.375 gm/ Dextrose) 50 mls @ 100 mls/hr IV Q6H [facility]; Protocol Last Admin: 09/24/18 09:20 Dose: 100 mls/hr Documented by: Vancomycin HCl 1,000 mg/ (Sodium Chloride) 250 mls @ 250 mls/hr IV Q24H [facility] Lactated Ringer's (Lactated Ringers) 1,000 mls @ 75 mls/hr IV .[id number] [facility] Insulin Human Lispro (Humalog) 0 unit SQ [facility]; Protocol Last Admin: 09/23/18 22:10 Dose: Not Given Documented by: Iron Carb/Multivit/Xenia/Folic Acid (Multivitamin W/Minerals) 1 tab PO DAILY [facility] Levothyroxine Sodium (Synthroid) 100 mcg PO QAMAC [facility] Last Admin: 09/24/18 08:51 Dose: 100 mcg Documented by: Naloxone HCl (Narcan) 0.1 mg IV Q2MIN PRN PRN Reason: Opiate Reversal Nitroglycerin (Nitrostat) 0.4 mg SL Q5M PRN PRN Reason: Angina Omeprazole (Prilosec) 20 mg PO QAMAC [facility] Last Admin: 09/24/18 08:52 Dose: 20 mg Documented by: Ondansetron HCl (Zofran) 4 mg IV Q4HP PRN PRN Reason: Nausea And Vomiting Oxycodone HCl (Roxicodone) 5 mg PO Q4HP PRN PRN Reason: Pain Sodium Chloride (Saline Flush) 10 ml IV Q8 [facility] Last Admin: 09/24/18 09:23 Dose: 10 ml Documented by: Vancomycin HCl (Vancomycin Per Pharmacy) 1 [place] [facility] [place] Medical - PN: A/P - Time Spent With Patient Total time spent is greater than 50% in coordination of care (as documented) at patient's floor/unit and/or counseling patient: - Narrative A/P Narrative: A/P Bladder perforation -post procedure for bladder resection, -Urology is following/ -Bladder irrigation to hopefully avoid and remove clots Sepsis/Inflammatory response -Elevated WBC, trending down -Recent urinary procedure -will cover with Vanco and zosyn for now -cultures sent -BP stable, IV fluids, Lactic Acidosis -worsening today, -Trend Lactate, IV fluids, -clinically stable, no e/o sepsis, QSOFA Score is 0 DM -SSI insulin for glucose control HTN -Hold bp meds till bp stable x 24 hrs -resume home meds once verified CAD/S/p CABG -No cp reported - h/o lymphoma, h/o CA prosate, positive SPEP -outpatient follow up DVT SCD for now FUll code Soft diet. Medical - PN: Qual - VTE Deep Vein Thrombosis/Pulmonary Embolism Present on Admission: No
[2018-09-24] MEDS: INSULIN LISPRO 1 UNIT/0.01 ML UNIT SQ SCH ×4 (10:03→21:53)
[2018-09-24] MEDS: MULTIVIT,THER IRON,CA,FA & MIN 1 TABLET PO SCH (10:17)
[2018-09-24] MEDS: VANCOMYCIN 1,000 MG in 0.9 % SODIUM CHLORIDE 250 ML IV SCH (10:19)
[2018-09-24] MEDS ORDERED: 0.9 % SODIUM CHLORIDE 1,000 ML IV ONE ×2 (12:17→13:11)
[2018-09-24] MEDS ORDERED: TRANEXAMIC ACID 1,000 MG/10 ML VIAL IV ONE (13:30)
[2018-09-24] MEDS: ATORVASTATIN 20 MG TABLET PO SCH (20:35)
[2018-09-25] MEDS: LACTATED RINGERS 1,000 ML IV SCH ×2 (01:51→13:34)
[2018-09-25] MEDS: ACETAMINOPHEN 325 MG TABLET PO PRN ×2 (02:56→13:23)
[2018-09-25 05:22] LABS: ALT/SGPT 11 U/l (0-40); AST/SGOT 27 U/l (0-37); Albumin 2.7 gm/dL (3.2-5.2); Albumin/Globulin Ratio 1.2 (1.0-2.3); Alkaline Phosphatase 45 U/L (39-117); Bilirubin,Direct < 0.2 mg/dL (0.0-0.3); Bilirubin,Total 0.5 mg/dL (0.0-1.0); Blood Urea Nitrogen 42 mg/dl (8-23); Calcium 7.6 mg/dl (8.6-10.4); Carbon Dioxide 19 mmol/L (22-30); Chloride 101 mmol/L (96-108); Globulin 2.2 gm/dL (2.2-3.7); Glomerular Filtration Rate 39; Glucose 122 mg/dL (70-105); Lactate Dehydrogenase 261 U/L (94-250); Phosphorous 3.4 mg/dL (2.7-4.5); Triglycerides 91 mg/dl (<150); Uric Acid 5.6 mg/dL (2.5-8.0)
[2018-09-25 05:27] LABS: Basophils # (Auto) 0 K/mcL (0.0-0.3); Basophils % (Auto) 0.1 % (0.0-2.0); Eosinophils # (Auto) 0 K/mcL (0.0-0.7); Eosinophils % (Auto) 0 % (0.0-7.0); Granulocytes % (Auto) 84.7 % (38.0-78.0); Hematocrit 22.4 % (41.0-55.0); Hemoglobin 7.4 g/dL (13.5-16.5); Lymphocytes # (Auto) 0.7 K/mcL (1.5-4.8); Lymphocytes % (Auto) 7.8 % (15.5-49.0); Mean Cell Volume 91.8 fL (80.0-100.0); Mean Corpuscular HGB Conc 33.2 g/dL (31.0-36.0); Mean Platelet Volume 10.5 fL (7.4-10.4); Monocytes # (Auto) 0.7 K/mcL (0.1-0.9); Monocytes % (Auto) 7.4 % (1.0-12.0); Platelet Count 123 K/mcL (140-440); RBC 2.44 M/mcL (4.50-5.90); Red Cell Distribution Width 13.1 % (11.5-14.5); WBC 8.8 K/mcL (4.5-11.0)
[2018-09-25] MEDS: PIPERACILLIN SODIUM/TAZOBACTAM 3.375 GM in DEXTROSE 5% IN WATER 50 ML IV SCH ×4 (05:30→23:28)
[2018-09-25 06:03] LABS: POC Blood Urea Nitrogen 37 mg/dl (8-23); POC CO2 19 mmol/L (22-30); POC Calcium, Ionized 1.14 mmol/L (1.16-1.32); POC Chloride 104 mmol/L (96-108); POC Creatinine 1.8 mg/dl (0.7-1.2); POC Glucose, Random 127 mg/dL (70-105); POC Potassium 4.3 mmol/L (3.3-5.1); POC Sodium 134 mmol/L (133-145)
[2018-09-25] MEDS ORDERED: 0.9 % SODIUM CHLORIDE 250 ML IV SCH ×2 (06:15→09:00)
[2018-09-25] MEDS: 0.9 % SODIUM CHLORIDE 10 ML SYRINGE IV SCH ×2 (08:29→14:05)
[2018-09-25] MEDS: LEVOTHYROXINE 100 MCG TABLET PO SCH (08:40)
[2018-09-25] MEDS: MULTIVIT,THER IRON,CA,FA & MIN 1 TABLET PO SCH (08:40)
[2018-09-25] MEDS: FAMOTIDINE/PF 20 MG/2 ML VIAL IV SCH ×2 (08:40→20:14)
[2018-09-25] MEDS: INSULIN LISPRO 1 UNIT/0.01 ML UNIT SQ SCH ×4 (08:40→20:48)
[2018-09-25] MEDS: OMEPRAZOLE 20 MG CAPSULE PO SCH (08:41)
--- NOTE | 2018-09-25 08:48 | General Surgery Progress Note ---
Subjective Patient reports: feels better Narrative: Note initiated : 09/25/18 at 8:46 am Service Date, if different from initiated Date: [] Patient: Bakari Golden 83 y/o M admitted on 09/23/18 for HTN, Nausea. Chief Complaint: [] Patient wbc improved. urine is clearing. cultures are pending. would continue marin. will follow. Objective Temp Pulse Resp BP Pulse Ox 99.9 F H 100 H 24 H 120/56 98 09/25/18 08:00 09/25/18 08:01 09/25/18 08:00 09/25/18 08:01 09/25/18 08:01 - Additional Data Intake & Output - Last 24 hours: Intake & Output 09/23/18 09/24/18 09/25/18 09/26/18 05:59 05:59 05:59 05:59 Intake Total 2427 2981 Output Total 235 1175 900 Balance 2192 1806 -900 Weight 159 lb 6.4 oz 166 lb 14.4 oz - Labs 09/25/18 03:43 09/25/18 03:43 Diabetes panel 09/25/18 Range/Units 03:43 Sodium 130 L (133-145) mmol/L Potassium 4.5 (3.3-5.1) mmol/L Chloride 101 (96-108) mmol/L Carbon Dioxide 19 L (22-30) mmol/L BUN 42 H (8-23) mg/dl Creatinine 1.6 H (0.7-1.2) mg/dl Glucose 122 H (70-105) mg/dL Calcium 7.6 L (8.6-10.4) mg/dl AST 27 (0-37) U/l ALT 11 (0-40) U/l Alkaline Phosphatase 45 (39-117) U/L Total Protein 4.9 L (5.9-8.4) gm/dL Albumin 2.7 L (3.2-5.2) gm/dL Triglycerides 91 (<150) mg/dl Calcium panel 09/25/18 Range/Units 03:43 Calcium 7.6 L (8.6-10.4) mg/dl Phosphorus 3.4 (2.7-4.5) mg/dL Albumin 2.7 L (3.2-5.2) gm/dL Pituitary panel 09/25/18 Range/Units 03:43 Sodium 130 L (133-145) mmol/L Potassium 4.5 (3.3-5.1) mmol/L Chloride 101 (96-108) mmol/L Carbon Dioxide 19 L (22-30) mmol/L BUN 42 H (8-23) mg/dl Creatinine 1.6 H (0.7-1.2) mg/dl Glucose 122 H (70-105) mg/dL Calcium 7.6 L (8.6-10.4) mg/dl Adrenal panel 09/25/18 Range/Units 03:43 Sodium 130 L (133-145) mmol/L Potassium 4.5 (3.3-5.1) mmol/L Chloride 101 (96-108) mmol/L Carbon Dioxide 19 L (22-30) mmol/L BUN 42 H (8-23) mg/dl Creatinine 1.6 H (0.7-1.2) mg/dl Glucose 122 H (70-105) mg/dL Calcium 7.6 L (8.6-10.4) mg/dl Total Bilirubin 0.5 (0.0-1.0) mg/dL AST 27 (0-37) U/l ALT 11 (0-40) U/l Alkaline Phosphatase 45 (39-117) U/L Total Protein 4.9 L (5.9-8.4) gm/dL Albumin 2.7 L (3.2-5.2) gm/dL Assessment and Plan - Time Spent With Patient Total time spent is greater than 50% in coordination of care (as documented) at patient's floor/unit and/or counseling patient:
--- NOTE | 2018-09-25 10:45 | Cat Scan Report ---
CLINICAL INFORMATION: History of bladder tumor resected cystoscopically two days prior. Post procedure hemorrhage with probable bladder rupture - follow-up COMPARISON: 09/23/[address] TECHNIQUE: 0.625 mm helical slices were obtained from the mid heart through the subtrochanteric regions. Following reconstruction, 2.5 mm sagittal, coronal and axial reformatted images were processed and reviewed at bone and soft tissue windows.The exam was performed using radiation dose optimization techniques including, but not limited to, automated exposure control, adjustment of the mA and/or kV according to patient size and use of iterative reconstruction technique. FINDINGS: Small pleural effusions have increased. There is atelectasis of the posterior basilar segments bilaterally and subsegmental atelectasis calf increased. Moderate hiatal hernia is again noted. The heart is mildly enlarged with calcification in the mitral aortic valve and also calcific plaque in the coronary arteries. Images of the abdomen show the noncontrasted gallbladder and bile ducts, liver, spleen, both adrenal glands and pancreas and aorta are normal in size, configuration and attenuation without focal lesion. 3 cm simple cyst mid left kidney again seen. Bilateral hydronephrosis/hydroureter, previously seen on immediate post procedure CT, has resolved. In addition, the urine has cleared - no evidence of hemorrhage in the upper collecting systems or ureters. Meyer catheter remains in stable satisfactory position. Hemorrhage within the urinary bladder has decreased considerably - less than one third the volume of the previous study. There is still modest amounts of extraperitoneal gas in the false pelvis surrounding the bladder and dissecting superiorly into the anterior abdominal wall, paracolic gutters and in the extraperitoneal region of the upper abdomen including perihepatic and perisplenic spaces. This has decreased modestly since previous study. The volume of fluid within the intraperitoneal extraperitoneal spaces, presumably urine, has decreased. Left inguinal hernia containing gas and fluid have decreased. Sigmoid diverticulosis noted no evidence of diverticulitis. The remainder of the large bowel small bowel and stomach are unremarkable.. IMPRESSION: 1. Moderate interval decrease in the volume of hemorrhage within the urinary bladder. Previously, there is bilateral hydronephrosis related to bladder outlet obstruction, but this has resolved. There is no longer hemorrhage within the the upper collecting systems or ureters. The volume of perivesical gas and fluid has decreased moderately since the comparison study two days prior 2. Small pleural effusions and mild bibasilar atelectasis increasing slightly. Interpreted and Authenticated by: Uzair Fernández 09/25/18
[2018-09-25] MEDS: VANCOMYCIN 1,000 MG in 0.9 % SODIUM CHLORIDE 250 ML IV SCH (10:54)
--- NOTE | 2018-09-25 12:01 | Internal Med Progress Note ---
Medical - PN: Subj Patient information: Note initiated : 09/25/18 at 11:56 am Service Date, if different from initiated Date: [] Patient: Bakari Golden 83 y/o M admitted on 09/23/18 for HTN, Nausea. Chief Complaint: [] Interval history: Mr. Golden is a 83 year old M with multiple medical problems, hard of hearing pre sented to the emergency room from the operating room today. The patient is hard of hearing most of the history provided by his . The patient was scheduled for a bladder tumor resection. Postoperatively after the tumor resection the patient developed abdominal pain nausea and was hypertensive. He was sent to the emergency room for further evaluation. Patient had no fever, he was dizzy, he has chronic cough but no chest pain no acute shortness of breath, no diarrhea, he did have hematuria, he had no new joint pains or skin rashes. Prior to the procedure patient had chronic cough that is been bothering him for a few months otherwise he was at his baseline status, there is no history of fever chills nausea vomiting abdominal pain or any other acute complaints before the patient presented for the procedure today. In the emergency room patient on presentation was hemodynamically stable, afebrile and maintaining oxygen saturation more than 90% on room air. His labs show WBC count of 20,000, hemoglobin 13.4 platelets 206, neutrophil count is of 95%, lactic acid is 2.8, sodium 128 potassium 3.3 bicarb 16 BUN 33 creatinine 1.2 glucose 239 total bilirubin 2.1 AST 45 ALT 14 alk phos 80 Patient underwent abdomen and pelvis CT which shows large amount of hemorrhage filling the urinary bladder, Meyer catheter in position. Moderate bilateral hydronephrosis. Moderate extraperitoneal gas in the deena-was likely region extending superiorly in the anterior extraperitoneal space and posteriorly in the retroperitoneum. Likely resulted from a breech of the bladder wall. Small bilateral pleural effusion and atelectasis in the medial posterior basal segment of the lower lobe possible infiltrate in the right lower lobe versus atelectasis Patient has been admitted to the hospital for further management 09/24 Patient seen and examined, no acute overnight events, no complaints. He has significant clot burden in his bladder, Dr. Guallpa irrigated the bladder today the Meyer was working fine after that Patient white blood cell count is better however lactic acidosis is worsening. He is off oxygen and feels significantly better since yesterday. Even wanted to have a shower today 09/25 Patient seen and examined, no acute overnight events, this morning patient has low hemoglobin, 7 has dropped significantly since admission. Patient has no evidence of acute bleed. Patient has significant hematuria and large clot burden I believe that the patient's drop in hemoglobin was secondary to perioperative loss, and then fluid resuscitation. CT was done which did not show any acute ongoing bleed. We will transfuse 3 units of blood. Lactic acidosis has resolved WBC count is back to normal, patient has a low- grade temperature could be due to clot burden Mild tachycardia could be due to low hemoglobin. Pertinent ROS: Denies headache, dizziness Denies chest pain, palpitations Denies cough or shortness of breath Denies abdominal pain, nausea or vomiting., but has abdominal discomfort - Constitutional Vitals: Vital Signs Temp Pulse Resp BP Pulse Ox 99.9 F H 100 H 24 H 120/56 98 09/25/18 08:00 09/25/18 08:01 09/25/18 08:00 09/25/18 08:01 09/25/18 08:01 Period Temp Pulse Resp BP Sys/Alonso Pulse Ox Last 24 Hr 97.9 F-100.8 F 100-108 14-24 95-135/43-82 92-99 Intake and Output 09/24/18 09/25/18 09/25/18 21:59 05:59 13:59 Intake Total 685 50 830 Output Total 1050 900 Balance 685 -1000 -70 Weight 1669 lb 6.4 oz 166 lb 14.4 oz Intake & Output: Intake & Output 09/24/18 09/25/18 09/25/18 21:59 05:59 13:59 Intake Total 685 50 830 Output Total 1050 900 Balance 685 -1000 -70 Weight 1669 lb 6.4 oz 166 lb 14.4 oz Intake: Nourishment/Supplement quantity 240 (ml) IV 685 50 50 Sodium Chloride 0.9% 1,000 ml @ 67 Wide Open IV [facility] Rx#: [id number] Lactated Ringers 1,000 ml @ 75 518 mls/hr IV .[id number] [facility] Rx#: [id number] Zosyn 3.375 gm In Dextrose 5% 100 50 50 in Water 50 ml @ 100 mls/hr IV Q6H [facility] Rx#:[id number] Oral 240 Blood Product 300 Output: Urine Catheter Amount 1050 900 Other: Meal Breakfast Percent of Meal Consumed 10 Urine Appearance Hematuria Hematuria Small Blood Clots Uretheral (Meyer) Hematuria Urine Color Dark Red Bright Red Bright Red Uretheral (Meyer) Dark Red Urine Odor Normal Exam: Constitutional; Afebrile, cooperative, alert, not in distress. Eyes- No icterus, , No periorbital swelling Ears- Ext ear normal, hearing hard to conversation. Neck- Midline trachea, supple Respiratory system: Air Entry equal on both sides, No crackles or wheezing, no rhonchi. CVS- Rate rhythm regular, S1,S2 heard, no gallop, no rub. Abdomen- soft abdomen,but sore on palpation, hypoactive bowel tones. CYBER SECURITY MANAGER- AOOx3, moving all extremities, no gross focal deficit noted. Medical - PN: Obj Da - Labs CBC & Chem 7: 09/25/18 03:43 09/25/18 03:43 Labs: Abnormal Lab Results 09/25/18 09/25/18 09/25/18 05:53 03:43 03:43 WBC RBC 2.44 L Hgb 7.4 L Hct 22.4 L POC Hct 20.0 L* Plt Count 123 L MPV 10.5 H Gran % 84.7 H Lymph % (Auto) 7.8 L Gran # Lymph # (Auto) 0.7 L [place] # (Auto) VBG Lactic Acid POC Sodium Sodium 130 L Chloride Carbon Dioxide 19 L POC Total CO2 19 L Anion Gap POC BUN 37 H BUN 42 H Creatinine 1.6 H POC Creatinine 1.8 H Glucose 122 H POC Glucose 127 H Calcium 7.6 L POC WB Ioniz Calcium 1.14 L Phosphorus Total Bilirubin AST Lactate Dehydrogenase 261 H Total Protein 4.9 L Albumin 2.7 L Urine Glucose (UA) Urine Occult Blood Urine RBC Urine WBC 09/24/18 09/24/18 09/24/18 10:13 04:05 04:05 WBC RBC Hgb Hct POC Hct Plt Count MPV Gran % Lymph % (Auto) Gran # Lymph # (Auto) [place] # (Auto) VBG Lactic Acid 2.6 H 5.7 H* POC Sodium Sodium 128 L Chloride 95 L Carbon Dioxide 14 L POC Total CO2 Anion Gap 19.0 H POC BUN BUN 39 H Creatinine 1.5 H POC Creatinine Glucose 261 H POC Glucose Calcium 7.7 L POC WB Ioniz Calcium Phosphorus 4.7 H Total Bilirubin AST Lactate Dehydrogenase 373 H Total Protein 5.8 L Albumin 3.1 L Urine Glucose (UA) Urine Occult Blood Urine RBC Urine WBC 09/24/18 09/23/18 09/23/18 04:05 22:56 21:32 WBC 15.7 H RBC 3.84 L Hgb 11.7 L Hct 36.4 L POC Hct 35.0 L Plt Count MPV 10.8 H Gran % 87.6 H Lymph % (Auto) 6.1 L Gran # 13.8 H Lymph # (Auto) 1.0 L [place] # (Auto) 1.0 H VBG Lactic Acid POC Sodium 129 L Sodium Chloride Carbon Dioxide POC Total CO2 16 L Anion Gap POC BUN 36 H BUN Creatinine POC Creatinine Glucose POC Glucose 291 H Calcium POC WB Ioniz Calcium 0.95 L Phosphorus Total Bilirubin AST Lactate Dehydrogenase Total Protein Albumin Urine Glucose (UA) 100 A Urine Occult Blood 3+ (large) A Urine RBC > 182 H Urine WBC 108 H 09/23/18 09/23/18 09/23/18 17:34 15:17 15:17 WBC 20.5 H RBC 4.36 L Hgb 13.4 L Hct 40.9 L POC Hct Plt Count MPV Gran % 95.3 H Lymph % (Auto) 2.0 L Gran # 19.5 H Lymph # (Auto) 0.4 L [place] # (Auto) VBG Lactic Acid 2.8 H POC Sodium Sodium 128 L Chloride 95 L Carbon Dioxide 16 L POC Total CO2 Anion Gap 17.0 H POC BUN BUN 33 H Creatinine POC Creatinine Glucose 239 H POC Glucose Calcium 7.9 L POC WB Ioniz Calcium Phosphorus Total Bilirubin 2.1 H AST 45 H Lactate Dehydrogenase Total Protein Albumin Urine Glucose (UA) Urine Occult Blood Urine RBC Urine WBC Meds: Medications Acetaminophen (Tylenol) 650 mg PO Q6HP PRN PRN Reason: PAIN/FEVER > 101 Last Admin: 09/25/18 02:56 Dose: 650 mg Documented by: Albuterol/Ipratropium (Duoneb) 3 ml NEB Q4HRT PRN PRN Reason: Shortness Of Breath Or Wheezing Atorvastatin Calcium (Lipitor) 20 mg PO HS [facility] Last Admin: 09/24/18 20:35 Dose: 20 mg Documented by: Dextrose (Dextrose 50%) 0 ml IV UD PRN PRN Reason: Hypoglycemia Diagnostic Test (Pha) (Accu-Chek) 1 each FS ACHS [facility] Last Admin: 09/25/18 08:40 Dose: 1 each Documented by: Famotidine (Pepcid) 20 mg IV Q12 [facility] Last Admin: 09/25/18 08:40 Dose: 20 mg Documented by: Glucose (Insta-Glucose) 15 gm PO PRN PRN PRN Reason: Hypoglycemia Hydromorphone HCl (Dilaudid) 0.5 mg IV Q2HP PRN PRN Reason: Pain Last Admin: 09/24/18 14:44 Dose: 0.5 mg Documented by: Piperacillin Sod/Tazobactam (Sod 3.375 gm/ Dextrose) 50 mls @ 100 mls/hr IV Q6H [facility]; Protocol Last Infusion: 09/25/18 10:19 Dose: Infused Documented by: Vancomycin HCl 1,000 mg/ (Sodium Chloride) 250 mls @ 250 mls/hr IV Q24H [facility] Last Admin: 09/25/18 10:54 Dose: 250 mls/hr Documented by: Lactated Ringer's (Lactated Ringers) 1,000 mls @ 75 mls/hr IV .[id number] [facility] Last Admin: 09/25/18 01:51 Dose: Not Given Documented by: Sodium Chloride (Sodium Chloride 0.9%) 250 mls @ 20 mls/hr IV .[id number] [facility] Stop: 09/25/18 18:44 Last Admin: 09/25/18 08:30 Dose: 20 mls/hr Documented by: Sodium Chloride (Sodium Chloride 0.9%) 250 mls @ 20 mls/hr IV .[id number] [facility] Stop: 09/25/18 21:29 Last Admin: 09/25/18 10:19 Dose: Not Given Documented by: Insulin Human Lispro (Humalog) 0 unit SQ [facility]; Protocol Last Admin: 09/25/18 08:40 Dose: Not Given Documented by: Iron Carb/Multivit/[place]/Folic Acid (Multivitamin W/Minerals) 1 tab PO DAILY [facility] Last Admin: 09/25/18 08:40 Dose: 1 tab Documented by: Levothyroxine Sodium (Synthroid) 100 mcg PO QAMAC [facility] Last Admin: 09/25/18 08:40 Dose: 100 mcg Documented by: Naloxone HCl (Narcan) 0.1 mg IV Q2MIN PRN PRN Reason: Opiate Reversal Nitroglycerin (Nitrostat) 0.4 mg SL Q5M PRN PRN Reason: Angina Omeprazole (Prilosec) 20 mg PO QAMAC [facility] Last Admin: 09/25/18 08:41 Dose: Not Given Documented by: Ondansetron HCl (Zofran) 4 mg IV Q4HP PRN PRN Reason: Nausea And Vomiting Last Admin: 09/24/18 12:21 Dose: 4 mg Documented by: Oxycodone HCl (Roxicodone) 5 mg PO Q4HP PRN PRN Reason: Pain Last Admin: 09/24/18 23:59 Dose: 5 mg Documented by: Sodium Chloride (Saline Flush) 10 ml IV Q8 [facility] Last Admin: 09/25/18 08:29 Dose: 10 ml Documented by: Vancomycin HCl (Vancomycin Per Pharmacy) 1 order IV [facility]; Protocol Medical - PN: A/P - Time Spent With Patient Total time spent is greater than 50% in coordination of care (as documented) at patient's floor/unit and/or counseling patient: - Narrative A/P Narrative: A/P Bladder perforation -post procedure for bladder resection, -Urology is following/ -Bladder irrigation to hopefully avoid and remove clots Sepsis/Inflammatory response -leucocytosis resolved, lacte nromal -on broad spectrum coverage, continue same for now, -await microbiology results. Acute blood loss Anemia -transfuse 3 units of prbc -monitor Lactic Acidosis -resolved DM -SSI insulin for glucose control HTN -Hold bp meds till bp stable x 24 hrs -resume home meds once verified CAD/S/p CABG -No cp reported - h/o lymphoma, h/o CA prosate, positive SPEP -outpatient follow up DVT SCD for now FUll code Soft diet. Medical - PN: Qual - VTE Deep Vein Thrombosis/Pulmonary Embolism Present on Admission: No
[2018-09-25] MEDS: ATORVASTATIN 20 MG TABLET PO SCH (20:14)
[2018-09-26] MEDS: 0.9 % SODIUM CHLORIDE 10 ML SYRINGE IV SCH ×4 (00:26→21:15)
[2018-09-26] MEDS: LACTATED RINGERS 1,000 ML IV SCH ×4 (04:51→23:02)
[2018-09-26 05:22] LABS: Basophils # (Auto) 0 K/mcL (0.0-0.3); Basophils % (Auto) 0.4 % (0.0-2.0); Eosinophils # (Auto) 0.1 K/mcL (0.0-0.7); Eosinophils % (Auto) 1.9 % (0.0-7.0); Granulocytes % (Auto) 80.6 % (38.0-78.0); Hematocrit 30.1 % (41.0-55.0); Hemoglobin 10.2 g/dL (13.5-16.5); Lymphocytes # (Auto) 0.6 K/mcL (1.5-4.8); Lymphocytes % (Auto) 10.4 % (15.5-49.0); Mean Cell Volume 89.7 fL (80.0-100.0); Mean Corpuscular HGB Conc 33.7 g/dL (31.0-36.0); Mean Platelet Volume 10.3 fL (7.4-10.4); Monocytes # (Auto) 0.4 K/mcL (0.1-0.9); Monocytes % (Auto) 6.7 % (1.0-12.0); Platelet Count 108 K/mcL (140-440); RBC 3.36 M/mcL (4.50-5.90); WBC 6.1 K/mcL (4.5-11.0)
[2018-09-26 05:48] LABS: ALT/SGPT 11 U/l (0-40); AST/SGOT 25 U/l (0-37); Albumin 2.9 gm/dL (3.2-5.2); Albumin/Globulin Ratio 1.3 (1.0-2.3); Alkaline Phosphatase 51 U/L (39-117); Bilirubin,Direct 0.2 mg/dL (0.0-0.3); Blood Urea Nitrogen 32 mg/dl (8-23); Calcium 8.1 mg/dl (8.6-10.4); Carbon Dioxide 22 mmol/L (22-30); Chloride 111 mmol/L (96-108); Globulin 2.3 gm/dL (2.2-3.7); Glomerular Filtration Rate 46; Glucose 114 mg/dL (70-105); Lactate Dehydrogenase 267 U/L (94-250); Phosphorous 2.8 mg/dL (2.7-4.5); Triglycerides 83 mg/dl (<150); Uric Acid 4.9 mg/dL (2.5-8.0)
[2018-09-26] MEDS: PIPERACILLIN SODIUM/TAZOBACTAM 3.375 GM in DEXTROSE 5% IN WATER 50 ML IV SCH ×3 (05:48→17:48)
[2018-09-26] MEDS: INSULIN LISPRO 1 UNIT/0.01 ML UNIT SQ SCH ×4 (07:34→21:15)
[2018-09-26] MEDS: OMEPRAZOLE 20 MG CAPSULE PO SCH (07:37)
[2018-09-26] MEDS: LEVOTHYROXINE 100 MCG TABLET PO SCH (07:37)
[2018-09-26] MEDS: FAMOTIDINE/PF 20 MG/2 ML VIAL IV SCH ×2 (08:37→21:21)
[2018-09-26] MEDS: MULTIVIT,THER IRON,CA,FA & MIN 1 TABLET PO SCH (08:54)
[2018-09-26] MEDS: VANCOMYCIN 1,000 MG in 0.9 % SODIUM CHLORIDE 250 ML IV SCH (08:55)
--- NOTE | 2018-09-26 09:26 | General Surgery Progress Note ---
Surgical - Auxillary Note - Subjective Patient Information: Note initiated : 09/26/18 at 9:24 am Service Date, if different from initiated Date: [] Patient: Bakari Golden 83 y/o M admitted on 09/23/18 for HTN, Nausea. Chief Complaint: Bladder perforation pt received 3 units rbc. hct = 30. ct improved. urine is bloody but old blood. not irrigated in 24 hours. would hold off irrigation. continue marin. will follow
[2018-09-26] MEDS ORDERED: POLYETHYLENE GLYCOL 3350 17 GM PACKET PO ONE (09:57)
[2018-09-26] MEDS ORDERED: NITROGLYCERIN 0.4 MG TAB.SUBL SL PRN (10:28)
[2018-09-26] MEDS ORDERED: DEXTROSE 50% 50 ML VIAL IV PRN (10:28)
[2018-09-26] MEDS ORDERED: NALOXONE HCL 0.4 MG/ML VIAL IV PRN (10:28)
[2018-09-26] MEDS ORDERED: oxyCODONE HCL 5 MG TABLET PO PRN (10:28)
[2018-09-26] MEDS ORDERED: IPRATROPIUM/ALBUTEROL 3 ML AMPUL.NEB NEB PRN (10:28)
[2018-09-26] MEDS ORDERED: HYDROmorphone 2 MG/ML VIAL IV PRN (10:28)
[2018-09-26] MEDS ORDERED: DEXTROSE 31 GM ORAL.SUSP PO PRN (10:28)
[2018-09-26] MEDS ORDERED: ACETAMINOPHEN 325 MG TABLET PO PRN (10:28)
[2018-09-26] MEDS ORDERED: ONDANSETRON 4 MG/2 ML VIAL IV PRN (10:28)
[2018-09-26] MEDS ORDERED: VANCOMYCIN PER PHARMACY IV SCH (10:28)
--- NOTE | 2018-09-26 10:59 | Internal Med Progress Note ---
Medical - PN: Subj Patient information: Note initiated : 09/26/18 at 10:55 am Service Date, if different from initiated Date: [] Patient: Bakari Golden 83 y/o M admitted on 09/23/18 for HTN, Nausea. Chief Complaint: [] Interval history: Mr. Golden is a 83 year old M with multiple medical problems, hard of hearing pre sented to the emergency room from the operating room today. The patient is hard of hearing most of the history provided by his . The patient was scheduled for a bladder tumor resection. Postoperatively after the tumor resection the patient developed abdominal pain nausea and was hypertensive. He was sent to the emergency room for further evaluation. Patient had no fever, he was dizzy, he has chronic cough but no chest pain no acute shortness of breath, no diarrhea, he did have hematuria, he had no new joint pains or skin rashes. Prior to the procedure patient had chronic cough that is been bothering him for a few months otherwise he was at his baseline status, there is no history of fever chills nausea vomiting abdominal pain or any other acute complaints before the patient presented for the procedure today. In the emergency room patient on presentation was hemodynamically stable, afebrile and maintaining oxygen saturation more than 90% on room air. His labs show WBC count of 20,000, hemoglobin 13.4 platelets 206, neutrophil count is of 95%, lactic acid is 2.8, sodium 128 potassium 3.3 bicarb 16 BUN 33 creatinine 1.2 glucose 239 total bilirubin 2.1 AST 45 ALT 14 alk phos 80 Patient underwent abdomen and pelvis CT which shows large amount of hemorrhage filling the urinary bladder, Meyer catheter in position. Moderate bilateral hydronephrosis. Moderate extraperitoneal gas in the deena-was likely region extending superiorly in the anterior extraperitoneal space and posteriorly in the retroperitoneum. Likely resulted from a breech of the bladder wall. Small bilateral pleural effusion and atelectasis in the medial posterior basal segment of the lower lobe possible infiltrate in the right lower lobe versus atelectasis Patient has been admitted to the hospital for further management 09/24 Patient seen and examined, no acute overnight events, no complaints. He has significant clot burden in his bladder, Dr. Guallpa irrigated the bladder today the Meyer was working fine after that Patient white blood cell count is better however lactic acidosis is worsening. He is off oxygen and feels significantly better since yesterday. Even wanted to have a shower today 09/25 Patient seen and examined, no acute overnight events, this morning patient has low hemoglobin, 7 has dropped significantly since admission. Patient has no evidence of acute bleed. Patient has significant hematuria and large clot burden I believe that the patient's drop in hemoglobin was secondary to perioperative loss, and then fluid resuscitation. CT was done which did not show any acute ongoing bleed. We will transfuse 3 units of blood. Lactic acidosis has resolved WBC count is back to normal, patient has a low- grade temperature could be due to clot burden Mild tachycardia could be due to low hemoglobin. 09/26 Patient seen and examined, no acute overnight events. Received 3 units of blood his hemoglobin has risen appropriately to more than 10 He has no acute complaints or concerns. Meyer still draining red urine with clots. Urology is following but this appears to be stable. Patient is hemodynamically stable will transfer to medical status Will discuss with urology with regards to final disposition plan Pertinent ROS: Denies headache, dizziness Denies chest pain, palpitations Denies cough or shortness of breath Denies abdominal pain, nausea or vomiting. - Constitutional Vitals: Vital Signs Temp Pulse Resp BP Pulse Ox 98.8 F 87 16 145/62 95 09/26/18 08:01 09/26/18 08:36 09/26/18 04:08 09/26/18 08:01 09/26/18 08:36 Period Temp Pulse Resp BP Sys/Alonso Pulse Ox Last 24 Hr 98.8 F-100.3 F 68-100 16-20 108-161/53-125 95-100 Intake and Output 09/25/18 09/26/18 09/26/18 21:59 05:59 13:59 Intake Total 1965 50 50 Output Total 750 1625 525 Balance 1215 -1575 -475 Weight 162 lb 8 oz Intake & Output: Intake & Output 09/25/18 09/26/18 09/26/18 21:59 05:59 13:59 Intake Total 1965 50 50 Output Total 750 1625 525 Balance 1215 -1575 -475 Weight 162 lb 8 oz Intake: Nourishment/Supplement quantity 240 (ml) IV 1100 50 50 Lactated Ringers 1,000 ml @ 75 1000 mls/hr IV .[id number] [facility] Rx#: [id number] Zosyn 3.375 gm In Dextrose 5% 100 50 50 in Water 50 ml @ 100 mls/hr IV Q6H [facility] Rx#:[id number] Oral 300 Blood Product 325 Output: Urine Catheter Amount 750 1625 525 Other: Meal Dinner Breakfast Percent of Meal Consumed 15 75% Feeding Ability Independent Urine Appearance Hematuria Hematuria Purulent Uretheral (Meyer) Hematuria Urine Color Bright Red Bright Red Dark Red Uretheral (Meyer) Bright Red Urine Odor Normal Normal Normal Uretheral (Meyer) Normal Stool Size Smear Stool Color Brown Exam: Constitutional; Afebrile, cooperative, alert, not in distress. Respiratory system: Air Entry equal on both sides, mild inspiratory crackles at both bases CVS- Rate rhythm regular, S1,S2 heard, no gallop, no rub. Abdomen- Soft nontender abdomen, no organomegaly, no tenderness, no guarding or rigidity, ENTRY LEVEL AUTOMOTIVE TECHNICIAN- AOOx3, moving all extremities, no gross focal deficit noted. Medical - PN: Obj Da - Labs CBC & Chem 7: 09/26/18 03:36 09/26/18 03:36 Labs: Abnormal Lab Results 09/26/18 09/26/18 09/25/18 03:36 03:36 05:53 WBC RBC 3.36 L Hgb 10.2 L Hct 30.1 L POC Hct 20.0 L* RDW 15.0 H Plt Count 108 L MPV Gran % 80.6 H Lymph % (Auto) 10.4 L Gran # Lymph # (Auto) 0.6 L [place] # (Auto) VBG Lactic Acid POC Sodium Sodium Chloride 111 H Carbon Dioxide POC Total CO2 19 L Anion Gap POC BUN 37 H BUN 32 H Creatinine 1.4 H POC Creatinine 1.8 H Glucose 114 H POC Glucose 127 H Calcium 8.1 L POC WB Ioniz Calcium 1.14 L Phosphorus Total Bilirubin AST Lactate Dehydrogenase 267 H Total Protein 5.2 L Albumin 2.9 L Urine Glucose (UA) Urine Occult Blood Urine RBC Urine WBC 09/25/18 09/25/18 09/24/18 03:43 03:43 10:13 WBC RBC 2.44 L Hgb 7.4 L Hct 22.4 L POC Hct RDW Plt Count 123 L MPV 10.5 H Gran % 84.7 H Lymph % (Auto) 7.8 L Gran # Lymph # (Auto) 0.7 L [place] # (Auto) VBG Lactic Acid 2.6 H POC Sodium Sodium 130 L Chloride Carbon Dioxide 19 L POC Total CO2 Anion Gap POC BUN BUN 42 H Creatinine 1.6 H POC Creatinine Glucose 122 H POC Glucose Calcium 7.6 L POC WB Ioniz Calcium Phosphorus Total Bilirubin AST Lactate Dehydrogenase 261 H Total Protein 4.9 L Albumin 2.7 L Urine Glucose (UA) Urine Occult Blood Urine RBC Urine WBC 09/24/18 09/24/18 09/24/18 04:05 04:05 04:05 WBC 15.7 H RBC 3.84 L Hgb 11.7 L Hct 36.4 L POC Hct RDW Plt Count MPV 10.8 H Gran % 87.6 H Lymph % (Auto) 6.1 L Gran # 13.8 H Lymph # (Auto) 1.0 L [place] # (Auto) 1.0 H VBG Lactic Acid 5.7 H* POC Sodium Sodium 128 L Chloride 95 L Carbon Dioxide 14 L POC Total CO2 Anion Gap 19.0 H POC BUN BUN 39 H Creatinine 1.5 H POC Creatinine Glucose 261 H POC Glucose Calcium 7.7 L POC WB Ioniz Calcium Phosphorus 4.7 H Total Bilirubin AST Lactate Dehydrogenase 373 H Total Protein 5.8 L Albumin 3.1 L Urine Glucose (UA) Urine Occult Blood Urine RBC Urine WBC 09/23/18 09/23/18 09/23/18 22:56 21:32 17:34 WBC RBC Hgb Hct POC Hct 35.0 L RDW Plt Count MPV Gran % Lymph % (Auto) Gran # Lymph # (Auto) [place] # (Auto) VBG Lactic Acid 2.8 H POC Sodium 129 L Sodium Chloride Carbon Dioxide POC Total CO2 16 L Anion Gap POC BUN 36 H BUN Creatinine POC Creatinine Glucose POC Glucose 291 H Calcium POC WB Ioniz Calcium 0.95 L Phosphorus Total Bilirubin AST Lactate Dehydrogenase Total Protein Albumin Urine Glucose (UA) 100 A Urine Occult Blood 3+ (large) A Urine RBC > 182 H Urine WBC 108 H 09/23/18 09/23/18 15:17 15:17 WBC 20.5 H RBC 4.36 L Hgb 13.4 L Hct 40.9 L POC Hct RDW Plt Count MPV Gran % 95.3 H Lymph % (Auto) 2.0 L Gran # 19.5 H Lymph # (Auto) 0.4 L [place] # (Auto) VBG Lactic Acid POC Sodium Sodium 128 L Chloride 95 L Carbon Dioxide 16 L POC Total CO2 Anion Gap 17.0 H POC BUN BUN 33 H Creatinine POC Creatinine Glucose 239 H POC Glucose Calcium 7.9 L POC WB Ioniz Calcium Phosphorus Total Bilirubin 2.1 H AST 45 H Lactate Dehydrogenase Total Protein Albumin Urine Glucose (UA) Urine Occult Blood Urine RBC Urine WBC Meds: Medications Acetaminophen (Tylenol) 650 mg PO Q6HP PRN PRN Reason: PAIN/FEVER > 101 Albuterol/Ipratropium (Duoneb) 3 ml NEB Q4HRT PRN PRN Reason: Shortness Of Breath Or Wheezing Atorvastatin Calcium (Lipitor) 20 mg PO HS [facility] Dextrose (Dextrose 50%) 0 ml IV UD PRN PRN Reason: Hypoglycemia Diagnostic Test (Pha) (Accu-Chek) 1 each FS ACHS [facility] Famotidine (Pepcid) 20 mg IV Q12 [facility] Glucose (Insta-Glucose) 15 gm PO PRN PRN PRN Reason: Hypoglycemia Hydromorphone HCl (Dilaudid) 0.5 mg IV Q2HP PRN PRN Reason: Pain Lactated Ringer's (Lactated Ringers) 1,000 mls @ 75 mls/hr IV .[id number] [facility] Last Admin: 09/26/18 10:31 Dose: Not Given Documented by: Piperacillin Sod/Tazobactam (Sod 3.375 gm/ Dextrose) 50 mls @ 100 mls/hr IV Q6H [facility]; Protocol Vancomycin HCl 1,000 mg/ (Sodium Chloride) 250 mls @ 250 mls/hr IV Q24H [facility] Insulin Human Lispro (Humalog) 0 unit SQ ACHS [facility]; Protocol Iron Carb/Multivit/[place]/Folic Acid (Multivitamin W/Minerals) 1 tab PO DAILY [facility] Levothyroxine Sodium (Synthroid) 100 mcg PO QAMAC [facility] Naloxone HCl (Narcan) 0.1 mg IV Q2MIN PRN PRN Reason: Opiate Reversal Nitroglycerin (Nitrostat) 0.4 mg SL Q5M PRN PRN Reason: Angina Omeprazole (Prilosec) 20 mg PO QAMAC [facility] Ondansetron HCl (Zofran) 4 mg IV Q4HP PRN PRN Reason: Nausea And Vomiting Oxycodone HCl (Roxicodone) 5 mg PO Q4HP PRN PRN Reason: Pain Senna/Docusate Sodium (Senna Plus Tablet) 1 tab PO HS [facility] Sodium Chloride (Saline Flush) 10 ml IV Q8 [facility] Vancomycin HCl (Vancomycin Per Pharmacy) 1 order IV UD [facility]; Protocol Medical - PN: A/P - Time Spent With Patient Total time spent is greater than 50% in coordination of care (as documented) at patient's floor/unit and/or counseling patient: - Narrative A/P Narrative: A/P Bladder perforation -post procedure for bladder resection, -Urology is following/ -Bladder irrigation to hopefully avoid and remove clots Sepsis/Inflammatory response -leucocytosis resolved, lactate has normalized -on broad spectrum coverage, continue same for now, -await microbiology results, negative growth so far -will plan a total of 5-7 day treatment. Acute blood loss Anemia -transfuse 3 units of prbc -monitor, hb is >10, appropriate rise Lactic Acidosis -resolved DM -SSI insulin for glucose control Consitpation -start senna -ds qhs -miralax now HTN resume metoprolol CAD/S/p CABG -No cp reported h/o lymphoma, h/o CA prosate, positive SPEP -outpatient follow up DVT SCD for now FUll code Soft diet. Xfer to med surg status Medical - PN: Qual - VTE Deep Vein Thrombosis/Pulmonary Embolism Present on Admission: No
[2018-09-26] MEDS: METOPROLOL TARTRATE 25 MG TABLET PO SCH (11:53)
[2018-09-26] MEDS ORDERED: SENNOSIDES/DOCUSATE SODIUM 1 TAB TABLET PO SCH ×2 (21:00)
[2018-09-26] MEDS ORDERED: ATORVASTATIN 20 MG TABLET PO SCH (21:00)
[2018-09-27] MEDS: PIPERACILLIN SODIUM/TAZOBACTAM 3.375 GM in DEXTROSE 5% IN WATER 50 ML IV SCH ×3 (00:14→12:06)
[2018-09-27] MEDS: 0.9 % SODIUM CHLORIDE 10 ML SYRINGE IV SCH (05:23)
[2018-09-27 06:03] LABS: Basophils # (Auto) 0 K/mcL (0.0-0.3); Basophils % (Auto) 0.7 % (0.0-2.0); Eosinophils # (Auto) 0.4 K/mcL (0.0-0.7); Eosinophils % (Auto) 6.1 % (0.0-7.0); Granulocytes % (Auto) 76.3 % (38.0-78.0); Lymphocytes # (Auto) 0.7 K/mcL (1.5-4.8); Lymphocytes % (Auto) 12.7 % (15.5-49.0); Mean Cell Volume 88.4 fL (80.0-100.0); Mean Corpuscular HGB Conc 33.4 g/dL (31.0-36.0); Mean Platelet Volume 9.7 fL (7.4-10.4); Monocytes # (Auto) 0.2 K/mcL (0.1-0.9); Monocytes % (Auto) 4.2 % (1.0-12.0); Platelet Count 116 K/mcL (140-440); RBC 3.05 M/mcL (4.50-5.90); WBC 5.8 K/mcL (4.5-11.0)
[2018-09-27 06:39] LABS: ALT/SGPT 11 U/l (0-40); AST/SGOT 21 U/l (0-37); Albumin 2.8 gm/dL (3.2-5.2); Albumin/Globulin Ratio 1.4 (1.0-2.3); Alkaline Phosphatase 52 U/L (39-117); Bilirubin,Direct 0.2 mg/dL (0.0-0.3); Bilirubin,Total 1.1 mg/dL (0.0-1.0); Blood Urea Nitrogen 22 mg/dl (8-23); Calcium 8.1 mg/dl (8.6-10.4); Carbon Dioxide 25 mmol/L (22-30); Chloride 109 mmol/L (96-108); Glomerular Filtration Rate 55; Glucose 103 mg/dL (70-105); Lactate Dehydrogenase 245 U/L (94-250); Phosphorous 2.2 mg/dL (2.7-4.5); Triglycerides 90 mg/dl (<150); Uric Acid 4.1 mg/dL (2.5-8.0)
--- NOTE | 2018-09-27 07:24 | General Surgery Progress Note ---
Surgical - Auxillary Note - Subjective Patient Information: Note initiated : 09/27/18 at 7:20 am Service Date, if different from initiated Date: [] Patient: Bakari Golden 83 y/o M admitted on 09/23/18 for HTN, Nausea. Chief Complaint: Bladder perforation Patient doing better. Urine is clearing but is still slightly bloody. No irrigation needed yesterday. Hct stable. Cultures negative.Patient may be D/[place] per Dr. Colby. Keep marin in until I see him in 10 days. will need cystogram prior to catheter removal. Penile edema should improve on its own. Would cover with cipro 250 mg while catheter is in.
[2018-09-27] MEDS ORDERED: OMEPRAZOLE 20 MG CAPSULE PO SCH (07:30)
[2018-09-27] MEDS ORDERED: LEVOTHYROXINE 100 MCG TABLET PO SCH (07:30)
[2018-09-27] MEDS: METOPROLOL TARTRATE 25 MG TABLET PO SCH (08:07)
[2018-09-27] MEDS: INSULIN LISPRO 1 UNIT/0.01 ML UNIT SQ SCH ×2 (08:14→12:07)
[2018-09-27] MEDS: FAMOTIDINE/PF 20 MG/2 ML VIAL IV SCH (08:15)
[2018-09-27] MEDS ORDERED: MULTIVIT,THER IRON,CA,FA & MIN 1 TABLET PO SCH (09:00)
[2018-09-27] MEDS ORDERED: VANCOMYCIN 1,000 MG in 0.9 % SODIUM CHLORIDE 250 ML IV SCH (10:00)
--- NOTE | 2018-09-27 11:15 | Discharge Summary ---
Medical - DS: Prov Patient information: Note initiated : 09/27/18 at 11:12 am Service Date, if different from initiated Date: [] Patient: Bakari Golden 83 y/o M admitted on 09/23/18 for HTN, Nausea. Chief Complaint: [] Date of admission: 09/23/18 20:16 Discharge date: 09/27/18 Primary care physician: Robert Lawrence Consults: 09/23/18 Consult to Physician [CONS] Stat Comment: Consulting Provider: Julio C Colby Reason For Exam: Physician to Consult Consult to Physician [CONS] Stat Comment: Consulting Provider: Eugene Guallpa Reason For Exam: Physician to Consult Discharging clinician: Julio C Colby Medical - DS: Meds - Discharge Medications Active and Home Medications: Home Medications Ferrous Gluconate [Fergon] 324 mg PO DAILY 03/07/16 [History Confirmed 09/23/18 Last Taken 03/09/16 08:00] Levothyroxine [Synthroid] 100 mcg PO DAILY 03/07/16 [History Confirmed 09/23/18 Last Taken 03/09/16 08:00] Omeprazole [Prilosec] 20 mg PO DAILY 03/07/16 [History Confirmed 09/23/18 Last Taken 09/23/18 05:15] [place]-3/Dha/Epa/Fish Oil [Fish Oil 1,000 mg Softgel] 1,000 mg PO DAILY 03/10/16 [History Confirmed 09/23/18 Last Taken Unknown] Multivit,Ther Iron,Ca,FA & Min [Multivitamin W/Minerals] 1 tab PO DAILY tab 03/12/16 [Rx Confirmed 09/23/18 Last Taken Unknown] aspirin 81 mg tablet,delayed release 81 mg PO QDAY 08/31/18 [History Confirmed 09/23/18 Last Taken Unknown] atorvastatin 20 mg tablet 20 mg PO HS 08/31/18 [History Confirmed 09/23/18 Last Taken Unknown] blood sugar diagnostic strips See Dose Instructions .ROUTE .MEDSUPPLY #10 each 08/31/18 [History Confirmed 09/23/18 Last Taken Unknown] metformin 500 mg tablet 500 mg PO QDAY tab 08/31/18 [History Confirmed 09/23/18 Last Taken Unknown] metoprolol tartrate 25 mg tablet 25 mg PO QDAY tab 08/31/18 [History Confirmed 09/23/18 Last Taken 07/18/19 05:15] nitroglycerin 0.4 mg sublingual tablet 0.4 mg SUBLINGUAL Q5-15M PRN 08/31/18 [History Confirmed 09/23/18 Last Taken Unknown] Medical - DS: Hosp Hospital course: Mr. Golden is a 83 year old M with multiple medical problems, hard of hearing presented to the emergency room from the operating room today. The patient is hard of hearing most of the history provided by his . The patient was scheduled for a bladder tumor resection. Postoperatively after the tumor resection the patient developed abdominal pain nausea and was hypertensive. He was sent to the emergency room for further evaluation. Patient had no fever, he was dizzy, he has chronic cough but no chest pain no acute shortness of breath, no diarrhea, he did have hematuria, he had no new joint pains or skin rashes. Prior to the procedure patient had chronic cough that is been bothering him for a few months otherwise he was at his baseline status, there is no history of fever chills nausea vomiting abdominal pain or any other acute complaints before the patient presented for the procedure today. In the emergency room patient on presentation was hemodynamically stable, afebrile and maintaining oxygen saturation more than 90% on room air. His labs show WBC count of 20,000, hemoglobin 13.4 platelets 206, neutrophil count is of 95%, lactic acid is 2.8, sodium 128 potassium 3.3 bicarb 16 BUN 33 creatinine 1.2 glucose 239 total bilirubin 2.1 AST 45 ALT 14 alk phos 80 Patient underwent abdomen and pelvis CT which shows large amount of hemorrhage filling the urinary bladder, Meyer catheter in position. Moderate bilateral hydronephrosis. Moderate extraperitoneal gas in the deena-was likely region extending superiorly in the anterior extraperitoneal space and posteriorly in the retroperitoneum. Likely resulted from a breech of the bladder wall. Small bilateral pleural effusion and atelectasis in the medial posterior basal segment of the lower lobe possible infiltrate in the right lower lobe versus atelectasis Patient has been admitted to the hospital for further management 09/24 Patient seen and examined, no acute overnight events, no complaints. He has significant clot burden in his bladder, Dr. Guallpa irrigated the bladder today the Meyer was working fine after that Patient white blood cell count is better however lactic acidosis is worsening. He is off oxygen and feels significantly better since yesterday. Even wanted to have a shower today 09/25 Patient seen and examined, no acute overnight events, this morning patient has low hemoglobin, 7 has dropped significantly since admission. Patient has no evidence of acute bleed. Patient has significant hematuria and large clot burden I believe that the patient's drop in hemoglobin was secondary to perioperative loss, and then fluid resuscitation. CT was done which did not show any acute ongoing bleed. We will transfuse 3 units of blood. Lactic acidosis has resolved WBC count is back to normal, patient has a low- grade temperature could be due to clot burden Mild tachycardia could be due to low hemoglobin. 09/26 Patient seen and examined, no acute overnight events. Received 3 units of blood his hemoglobin has risen appropriately to more than 10 He has no acute complaints or concerns. Meyer still draining red urine with clots. Urology is following but this appears to be stable. Patient is hemodynamically stable will transfer to medical status Will discuss with urology with regards to final disposition plan 09/27 Patient seen and examined, no obstruction in the catheter anymore, hemoglobin is 9 slight drop since yesterday. Patient otherwise feels well. Meyer catheter is draining well persistent hematuria but patient has been deemed stable by urology for discharge. Cultures have been negative, no evidence of any infection, white blood cell count likely reactive to the acute inflammation which has now subsided. Patient will be discharged home I have advised the patient to resume all his home medications as prescribed by his regular provider. I am not providing any new prescription at this time, he has been provided a prescription of Keflex and hydrocodone by the urologist I have advised to have these medications filled up Given the fact that the patient has persistent hematuria it is difficult to evaluate or estimate if this is from an ongoing bleed or the heavy clot burden is just breaking up from the bladder. I have advised the patient to get a complete blood count this and follow-up with his primary care provider on Thursday. He will follow-up with Dr. Guallpa the urologist in 1 week Discharge diagnosis: Post procedure hematuria, bladder perforation, anemia - Time Spent with Patient Total time spent providing and/or coordinating discharge services: Greater than 30 minutes Medical - DS: Exam - Constitutional Vitals: Vital Signs Temp Pulse Resp BP Pulse Ox 09/27/18 08:00 99 09/27/18 07:09 98.8 F 85 18 160/83 96 09/27/18 04:00 98.8 F 18 145/88 95 09/27/18 00:06 99.0 F 80 18 150/83 95 09/26/18 22:33 145/68 09/26/18 21:33 155/108 09/26/18 18:31 153/71 97 09/26/18 18:01 82 178/80 97 09/26/18 17:47 83 154/98 98 09/26/18 17:16 77 96 09/26/18 17:13 55 L 166/64 95 09/26/18 17:02 98.5 F 59 L 20 173/68 96 09/26/18 11:50 99.2 F H 83 18 154/78 97 Intake and Output 09/26/18 09/27/18 09/27/18 21:59 05:59 13:59 Intake Total 370 1100 240 Output Total 450 1350 Balance -80 -250 240 Intake: IV 50 1100 Zosyn 3.375 gm In Dextrose 5% 50 100 in Water 50 ml @ 100 mls/hr IV Q6H [facility] Rx#:[id number] Oral 320 240 Output: Urine Catheter Amount 450 1350 Other: Urine Appearance Hematuria Cloudy Small Blood Clots Uretheral (Meyer) Hematuria Urine Color Dark Red Bright Red Uretheral (Meyer) Bright Red Stool Size Small Stool Color Brown Green Stool Consistency Liquid Loose # Bowel Movements 2 1 # of times incontinent of 1 Bowels Weight 161 lb 3.68 oz Additional comments: Constitutional; Afebrile, cooperative, alert, not in distress. Respiratory system: Air Entry equal on both sides, No crackles or wheezing, no rhonchi. CVS- Rate rhythm regular, S1,S2 heard, no gallop, no rub. Abdomen- Soft nontender abdomen, no organomegaly, no tenderness, no guarding or rigidity, [employer]- AOOx3, moving all extremities, no gross focal deficit noted. Medical - DS: Data Labs on day of discharge: Labs from last 24 hours 09/27/18 09/27/18 03:32 03:32 WBC 5.8 RBC 3.05 L Hgb 9.0 L Hct 27.0 L MCV 88.4 MCH 29.5 MCHC 33.4 RDW 14.0 Plt Count 116 L MPV 9.7 Gran % 76.3 Lymph % (Auto) 12.7 [place] % (Auto) 4.2 Eos % (Auto) 6.1 Baso % (Auto) 0.7 Gran # 4.5 Lymph # (Auto) 0.7 L [place] # (Auto) 0.2 Eos # (Auto) 0.4 Baso # (Auto) 0 Sodium 142 Potassium 3.5 Chloride 109 H Carbon Dioxide 25 Anion Gap 8.0 BUN 22 Creatinine 1.2 GFR Calculation 55 Glucose 103 Uric Acid 4.1 Calcium 8.1 L Phosphorus 2.2 L Magnesium 1.9 Total Bilirubin 1.1 H Direct Bilirubin 0.2 GGT 11 AST 21 ALT 11 Alkaline Phosphatase 52 Lactate Dehydrogenase 245 Total Protein 4.8 L Albumin 2.8 L Globulin 2.0 L Albumin/Globulin Ratio 1.4 Triglycerides 90 Preliminary micro results at discharge 09/23/18 17:34 Blood Culture - Preliminary Blood 09/23/18 17:39 Blood Culture - Preliminary Blood Medical - DS: A/P - Patient/Caregiver Discharge Instructions Activity: increase activity as tolerated Diet: Regular Diet Additional Instructions: Take medications as prescribed by Dr. Guallpa. I have made no changes in your chronic home medication list Do a CBC on and follow-up with the results with your primary care provider Dr. Lawrence Go to the emergency room if you develop worsening abdominal pain fever chest pain or any other acute concern Follow-up with Dr. Guallpa in 1 week - Follow up Plan Follow up with: Robert Lawrence MD [Primary Care Provider] - 10/05/18 11:15 am (check in at 11:00) Eugene Guallpa MD [Physician] - 10/08/18 10:45 am Disposition: Home, Self-Care Prognosis: Fair Rehab Potential: Fair I certify that the patient requires SNF services: No Overall status at discharge: patient is progressing back to baseline Medical - DS: Qual - VTE Deep Vein Thrombosis/Pulmonary Embolism Present on Admission: No
== END 2018-09-27 14:02 | disposition home or self-care (01) | DRG 919 ==
LOC: ED 16:03 → ICU 20:16
PROVIDERS: ADMIT Internal Medicine; ATTEND Internal Medicine

== ENCOUNTER 2020-05-31 16:22 | Observation (INO) ==
[2020-05-31] MEDS ORDERED: 0.9 % SODIUM CHLORIDE 1,000 ML IV ONE (16:32)
--- NOTE | 2020-05-31 16:37 | Emergency Department Note ---
GI Bleed HPI General Chief complaint: Rectal Bleed Stated complaint: Rectal bleed Time Seen by Provider: 05/31/20 16:26 Source: patient and family Mode of arrival: ambulatory Limitations: no limitations History of Present Illness HPI Narrative: Narrative: 85-year-old male with history of diverticulitis GI bleeds requiring transfusion complains of bright red blood per rectum with bowel movements multiple times today. For the last 3 hours he has had this bright red blood per rectum and had one episode here in the emergency department. He denies any dizziness lightheadedness or weakness he denies any abdominal pain he denies any nausea or vomiting hematemesis or coffee-ground emesis. MD complaint: other (Bright red blood per rectum) Onset (ago): hour(s) (3) Consistency: constant Severity: severe and similar to previous episodes Improves with: none Worsens with: bowel movement Context: history of GI bleed Associated symptoms: Denies abdominal pain, nausea, vomiting, epistaxis, fever, chills, headaches, loss of appetite, malaise, easy bruising, rash, other bleeding, shortness of breath, syncope and weakness Related Data Home Medications Medication Instructions Recorded Confirmed ferrous gluconate 324 mg PO DAILY 03/07/16 02/27/20 levothyroxine 100 mcg PO DAILY 03/07/16 02/27/20 omeprazole 20 mg PO DAILY 03/07/16 02/27/20 omega 0-csb-yed-fish oil 1,000 mg PO DAILY 03/10/16 02/27/20 aspirin 81 mg tablet,delayed 81 mg PO QDAY 08/31/18 02/27/20 release atorvastatin 20 mg tablet 20 mg PO HS 08/31/18 02/27/20 blood sugar diagnostic #10 each 08/31/18 02/27/20 metformin 500 mg tablet 500 mg PO QDAY tab 08/31/18 02/27/20 metoprolol tartrate 25 mg tablet 25 mg PO QDAY tab 08/31/18 02/27/20 nitroglycerin 0.4 mg sublingual 0.4 mg SUBLINGUAL Q5-15M PRN 08/31/18 02/27/20 tablet Previous Rx's Medication Instructions Recorded ylttyqpz-wmmn-HT-calcium-mins 1 tab PO DAILY tab 03/12/16 mesalamine with cleansing wipe 4 gm RC QD-BID #7 enema.kit 12/11/18 tamsulosin 0.4 mg capsule 0.4 mg PO QDAY #30 cap 11/23/19 Allergies Allergy/AdvReac Type Severity Reaction Status Date / Time levofloxacin [From Levaquin] AdvReac Severe Seizure Verified 05/31/20 16:23 sulfamethoxazole AdvReac Severe Seizure Verified 05/31/20 16:23 [From Bactrim] tramadol AdvReac Severe Seizure Verified 05/31/20 16:23 trimethoprim [From Bactrim] AdvReac Severe Seizure Verified 05/31/20 16:23 Review of Systems ROS ROS Narrative: Narrative: Constitutional: Denies fever, chills and weakness Eyes: Denies vision change ENT ED: Denies throat pain Cardiovascular: Denies chest pain Respiratory: Denies shortness of breath Gastrointestinal: Reports other; Denies abdominal pain Musculoskeletal: Denies back pain Integumentary: Denies rash Neurological: Denies headache Psychiatric: Denies depression Endocrine: Denies fatigue Hematological/Lymphatic: Denies easy bruising Allergic/Immunologic: Denies urticaria PFSH Narrative Patient History Narrative: Narrative: Medical/Surgical/Family History All Active Problems (Updated 05/31/20 @ 17:29 by Agusto Locke MD) Urethral stricture (Acute) Prostate cancer (Acute) BPH NOS w ur obs/LUTS (Acute) Proctitis (Acute) Bladder cancer (Acute) Post-op bleeding (Acute) Leukocytosis (Acute) Acute retention of urine (Acute) Hiatal hernia (Chronic) Lymphoma (Chronic) Radiation proctitis (Chronic) Adenomatous polyp (Chronic) Edema (Chronic) Easy bruising (Chronic) Heart murmur (Chronic) [place] (hard of hearing) (Chronic) Hemorrhoids (Chronic) Numbness and tingling of left leg (Chronic) Lack of sexual desire (Chronic) History of radiation therapy (Chronic ~2010) Monoclonal gammopathy of undetermined significance (Chronic) Iron deficiency anemia (Chronic) History of prostate cancer (Chronic) Non Hodgkin's lymphoma (Chronic ~2010) Hematuria (Chronic) Impacted cerumen (Chronic) UTI (urinary tract infection) (Chronic) Dehydration (Chronic) B12 deficiency (Chronic) Abnormal gait (Chronic) Seizure (Chronic) New onset seizure (Chronic) Acute anxiety (Chronic) NSTEMI (non-ST elevated myocardial infarction) (Chronic) Second degree AV block (Chronic) Near syncope (Chronic) GI bleed (Chronic) Diverticulitis (Chronic) Hypertension (Chronic) Skin neoplasm (Chronic) Medical History (Updated 05/31/20 @ 17:29 by Agusto Locke MD) Abnormal gait Acute anxiety Adenomatous polyp Found during colonoscopy in 2011. B12 deficiency Dehydration Easy bruising Edema Heart murmur Hematuria Hemorrhoids Hiatal hernia History of prostate cancer History of radiation therapy (~2010) [place] (hard of hearing) Impacted cerumen Iron deficiency anemia Lack of sexual desire Lymphoma Monoclonal gammopathy of undetermined significance Near syncope New onset seizure Non Hodgkin's lymphoma (~2010) Retroperitoneal lymph node. NSTEMI (non-ST elevated myocardial infarction) Numbness and tingling of left leg Due to back surgery. Radiation proctitis Second degree AV block Seizure UTI (urinary tract infection) Surgical History History of biopsy Right retroperitoneal lymph node. History of vasectomy S/P triple vessel bypass Family History Brother Cancer Mother Cancer Other No pertinent family history Social History Smoking Status: Former smoker Alcohol Intake Frequency: does not drink Substance Use: does not use Exam Narrative Narrative: Narrative: General Limitations: no limitations General appearance: Present alert and in no apparent distress Head Head: Present atraumatic and normocephalic Eye Eye: Present normal appearance, PERRL and EOMI ENT ENT: Present normal exam, mucous membranes moist and other (Hard of hearing) Neck Neck: Present normal inspection and full ROM Chest Chest: Present normal inspection; Absent tenderness Respiratory Respiratory: Present normal lung sounds bilaterally; Absent respiratory distress Cardiovascular Cardiovascular: Present regular rate and normal rhythm; Absent systolic murmur Adbominal Abdominal: Present soft; Absent distention, tenderness, guarding and rebound Rectal Rectal: Present heme (+) stool and bloody stool Extremities Extremities: Present normal inspection, full ROM, pedal edema and pretibial edema; Absent tenderness Back Back: Present normal inspection; Absent CVA tenderness (R) and CVA tenderness (L) Neurological Neurological: Present alert and oriented X3 Psychiatric Psychiatric: Present normal affect and normal mood Skin Skin: Present warm (WNL); Absent rash Course Vital Signs Vital signs: Vital Signs Temperature 97.0 F 05/31/20 16:23 Pulse Rate 76 05/31/20 16:23 Respiratory Rate 16 05/31/20 16:23 Blood Pressure 152/76 05/31/20 16:23 Pulse Oximetry (%) 95 05/31/20 16:23 Temperature 97.0 F 05/31/20 16:23 Pulse Rate 67 05/31/20 17:30 Respiratory Rate 19 05/31/20 17:30 Blood Pressure 147/51 05/31/20 17:30 Pulse Oximetry (%) 97 05/31/20 17:30 MDM MDM Narrative Medical decision making narrative: Narrative: Lower GIB with known H/O bleeding tics. Discussed with Dr. Huston, Stable VSS & H/H, no Abd CT needed last done on 03/2020 (not on file) Prep for colonoscopy in AM, admit to hospitalist. Lab Data Lab results reviewed: Yes I reviewed the patient's lab results. Result diagrams: 05/31/20 16:45 05/31/20 16:44 Labs: Lab Results 05/31/20 05/31/20 Range/Units 16:45 16:45 WBC 5.8 (4.5-11.0) K/mcL RBC 3.57 L (4.50-5.90) M/mcL Hgb 10.2 L (13.5-16.5) g/dL Hct 32.7 L (41.0-55.0) % MCV 91.6 (80.0-100.0) fL MCH 28.6 (26.0-34.0) pg MCHC 31.2 (31.0-36.0) g/dL RDW 14.6 H (11.5-14.5) % Plt Count 138 L (140-440) K/mcL MPV 11.6 H (7.4-10.4) fL Neut % (Auto) 65.9 (38.0-78.0) % Lymph % (Auto) 19.3 (15.0-49.0) % [place] % (Auto) 6.9 (1.0-12.0) % Eos % (Auto) 7.4 H (0.0-7.0) % Baso % (Auto) 0.5 (0.0-2.0) % Lymph # (Auto) 1.12 L (1.50-4.80) K/mcL [place] # (Auto) 0.40 (0.10-0.90) K/mcL Eos # (Auto) 0.43 (0.00-0.70) K/mcL Baso # (Auto) 0.03 (0.00-0.20) K/mcL Absolute Neutrophils 3.82 (1.80-8.00) K/mcL POC PT 13.6 (11.9-14.5) sec POC INR 1.1 (0.8-1.2) EKG Data EKG #1: EKG attestation: Yes I reviewed and interpreted this EKG. EKG shows normal: sinus rhythm Rate: normal (68) Rhythm: NSR [place]/QRS: normal Heart block present: None ST segment elevation in: None ST segment depression in: None Q waves: None T wave inversions noted in: None Hyperacute T waves: None QTc: normal QRS morphology: Present normal Interpretation: normal EKG Pulse Oximetry Data Pulse Ox %: 94 Interpretation: WNL for this patient Discharge Plan Patient/Caregiver Discharge Instructions Pt seen by [employer]LE[employer] VAT TENDER/PA only: No Clinical Impression: GI bleed Patient Disposition: Xfer As Inpt ([facility]) Follow up with: Aayush Thomas DO [Primary Care Provider] - Prescriptions: No Action levothyroxine 100 MCG tablet 100 mcg PO DAILY RF: 0 omeprazole 20 MG capsule 20 mg PO DAILY RF: 0 ferrous gluconate 324 MG tablet 324 mg PO DAILY RF: 0 omega 9-jmi-vcs-fish oil 1,000 MG capsule 1,000 mg PO DAILY RF: 0 euizypqe-bvrt-ZO-calcium-mins 1 TAB tablet 1 tab PO DAILY RF: 0 mesalamine with cleansing wipe 4 GM/60 ML enema kit 4 gm RC QD-BID Qty: 7 RF: 0 metoprolol tartrate 25 mg tablet 25 mg PO QDAY RF: 0 (DME) Contour Next Test Strips strip See Dose Instructions applic .ROUTE .MEDSUPPLY Qty: 10 RF: 0 atorvastatin 20 mg tablet 20 mg PO HS RF: 0 metformin 500 mg tablet 500 mg PO QDAY RF: 0 nitroglycerin 0.4 mg tablet, sublingual 0.4 mg SUBLINGUAL Q5-15M PRN (Reason: Angina) RF: 0 aspirin [Adult Low Dose Aspirin] 81 mg tablet,delayed release (DR/EC) 81 mg PO QDAY RF: 0 tamsulosin 0.4 mg capsule 0.4 mg PO QDAY Qty: 30 RF: 6
[2020-05-31 16:52] LABS: POC INR 1.1 (0.8-1.2); POC Pro Time 13.6 sec (11.9-14.5)
[2020-05-31 17:30] LABS: Basophils # (Auto) 0.03 K/mcL (0.00-0.20); Basophils % (Auto) 0.5 % (0.0-2.0); Eosinophils # (Auto) 0.43 K/mcL (0.00-0.70); Eosinophils % (Auto) 7.4 % (0.0-7.0); Hematocrit 32.7 % (41.0-55.0); Hemoglobin 10.2 g/dL (13.5-16.5); Lymphocytes # (Auto) 1.12 K/mcL (1.50-4.80); Lymphocytes % (Auto) 19.3 % (15.0-49.0); Mean Cell Volume 91.6 fL (80.0-100.0); Mean Corpuscular HGB Conc 31.2 g/dL (31.0-36.0); Mean Platelet Volume 11.6 fL (7.4-10.4); Monocytes % (Auto) 6.9 % (1.0-12.0); Neutrophils % (Auto) 65.9 % (38.0-78.0); Platelet Count 138 K/mcL (140-440); RBC 3.57 M/mcL (4.50-5.90); Red Cell Distribution Width 14.6 % (11.5-14.5); WBC 5.8 K/mcL (4.5-11.0)
--- NOTE | 2020-05-31 17:34 | XRay Report ---
CLINICAL INFORMATION: Chest pain COMPARISON: 09/23/2018. TECHNIQUE: Portable FINDINGS: The heart size, mediastinum and pulmonary vessels are unremarkable. The lungs are clear. There are no effusions. The bones and soft tissues are within normal limits. IMPRESSION: Normal chest. Interpreted and Authenticated by: Uzair Fernández 05/31/20
[2020-05-31 17:51] LABS: ALT/SGPT 12 U/L (<40); AST/SGOT 17 U/L (<40); Albumin 4.1 gm/dL (3.2-5.2); Albumin/Globulin Ratio 1.6 (1.0-2.3); Alkaline Phosphatase 117 U/L (39-117); Bilirubin,Total 0.3 mg/dL (0.1-1.0); Blood Urea Nitrogen 31 mg/dL (8-23); Calcium 8.8 mg/dL (8.6-10.4); Carbon Dioxide 25 mmol/L (22-30); Chloride 106 mmol/L (96-108); Globulin 2.6 gm/dL (2.2-3.7); Glomerular Filtration Rate 49; Glucose 160 mg/dL (70-105)
--- NOTE | 2020-05-31 19:26 | Internal Med History&Physical ---
HPI History of Present Illness Patient information: Note initiated : 05/31/20 at 7:21 pm Service Date, if different from initiated Date: [] Patient: Bakari Golden a 85 y/o M admitted on for Rectal bleed. Chief Complaint: [] History of present illness: Mr. Golden is a 85 year old M Presents to the ED with bright red blood per rectum. Patient has a history of diverticulosis and had a significant bleeding episode several months ago. Patient is well-known to Dr. Huston. Bleeding started today. He had probably 4 5 episodes of bright red blood per rectum at home and has had several episodes in the ED. Denies any chest pain shortness of breath lightheadedness. Vital signs stable in the ED. Hemoglobin 10. Review of Systems: Pertinent positives as above. Denies headache/fever/chills/nausea/vomiting/chest or abdominal pain/cough/dyspnea/diarrhea. Remaining 10 point review of system reviewed negative PFSH PFSH All Active Problems (Updated 05/31/20 @ 17:29 by Agusto Locke MD) Urethral stricture (Acute) Prostate cancer (Acute) BPH NOS w ur obs/LUTS (Acute) Proctitis (Acute) Bladder cancer (Acute) Post-op bleeding (Acute) Leukocytosis (Acute) Acute retention of urine (Acute) Hiatal hernia (Chronic) Lymphoma (Chronic) Radiation proctitis (Chronic) Adenomatous polyp (Chronic) Edema (Chronic) Easy bruising (Chronic) Heart murmur (Chronic) [place] (hard of hearing) (Chronic) Hemorrhoids (Chronic) Numbness and tingling of left leg (Chronic) Lack of sexual desire (Chronic) History of radiation therapy (Chronic ~2010) Monoclonal gammopathy of undetermined significance (Chronic) Iron deficiency anemia (Chronic) History of prostate cancer (Chronic) Non Hodgkin's lymphoma (Chronic ~2010) Hematuria (Chronic) Impacted cerumen (Chronic) UTI (urinary tract infection) (Chronic) Dehydration (Chronic) B12 deficiency (Chronic) Abnormal gait (Chronic) Seizure (Chronic) New onset seizure (Chronic) Acute anxiety (Chronic) NSTEMI (non-ST elevated myocardial infarction) (Chronic) Second degree AV block (Chronic) Near syncope (Chronic) GI bleed (Chronic) Diverticulitis (Chronic) Hypertension (Chronic) Skin neoplasm (Chronic) Medical History (Updated 05/31/20 @ 17:29 by Agusto Locke MD) Abnormal gait Acute anxiety Adenomatous polyp Found during colonoscopy in 2011. B12 deficiency Dehydration Easy bruising Edema Heart murmur Hematuria Hemorrhoids Hiatal hernia History of prostate cancer History of radiation therapy (~2010) [place] (hard of hearing) Impacted cerumen Iron deficiency anemia Lack of sexual desire Lymphoma Monoclonal gammopathy of undetermined significance Near syncope New onset seizure Non Hodgkin's lymphoma (~2010) Retroperitoneal lymph node. NSTEMI (non-ST elevated myocardial infarction) Numbness and tingling of left leg Due to back surgery. Radiation proctitis Second degree AV block Seizure UTI (urinary tract infection) Surgical History History of biopsy Right retroperitoneal lymph node. History of vasectomy S/P triple vessel bypass Family History Brother Cancer Mother Cancer Other No pertinent family history Social History household members: spouse marital status: alcohol intake frequency: does not drink substance use type: does not use MEDS/ALLERGIES Home Medications and Allergies Home Medications Medication Instructions Recorded Confirmed Type ferrous gluconate 324 mg PO DAILY 03/07/16 05/31/20 History levothyroxine 100 mcg PO DAILY 03/07/16 05/31/20 History omeprazole 40 mg PO BID 03/07/16 05/31/20 History omega 7-hun-fko-fish oil 1,000 mg PO BID 03/10/16 05/31/20 History fqzhiaty-yhwq-WP-calcium-mins 1 tab PO DAILY tab 03/12/16 05/31/20 Rx aspirin 81 mg tablet,delayed 81 mg PO QDAY 08/31/18 05/31/20 History release atorvastatin 20 mg tablet 10 mg PO HS 08/31/18 05/31/20 History blood sugar diagnostic #10 each 08/31/18 02/27/20 History metformin 500 mg tablet 500 mg PO QDAY tab 08/31/18 02/27/20 History metoprolol tartrate 25 mg tablet 25 mg PO QAM tab 08/31/18 05/31/20 History nitroglycerin 0.4 mg sublingual 0.4 mg SUBLINGUAL Q5-15M PRN 08/31/18 05/31/20 History tablet mesalamine with cleansing wipe 4 gm RC QD-BID #7 enema.kit 12/11/18 02/27/20 Rx tamsulosin 0.4 mg capsule 0.4 mg PO QDAY #30 cap 11/23/19 05/31/20 Rx acetaminophen 1,000 mg PO BID 05/31/20 05/31/20 History furosemide 40 mg PO QAM 05/31/20 05/31/20 History meloxicam 7.5 mg PO QDAY 05/31/20 05/31/20 History vitamin B complex [B 1 tab PO QAM 05/31/20 05/31/20 History Complex-Vitamin B12] Allergies Allergy/AdvReac Type Severity Reaction Status Date / Time levofloxacin [From Levaquin] AdvReac Severe Seizure Verified 05/31/20 16:23 sulfamethoxazole AdvReac Severe Seizure Verified 05/31/20 16:23 [From Bactrim] tramadol AdvReac Severe Seizure Verified 05/31/20 16:23 trimethoprim [From Bactrim] AdvReac Severe Seizure Verified 05/31/20 16:23 EXAM Constitutional Vitals: Temp Pulse Resp BP Pulse Ox 97.0 F 71 19 128/84 98 05/31/20 16:23 05/31/20 19:15 05/31/20 19:15 05/31/20 19:15 05/31/20 19:15 Exam: General: Alert, Awake, No acute Distress Eyes/N/T: EOMI, PERRL, Head/Neck: neck supple, normocephalic atraumatic CV: RRR, 2/6 SM, normal s1/s2 Pulm: Clear b/l, no wheezing/rhonchi/rales Abd: soft, nontender, +BS x4 Ext: no clubbing/cyanosis 2+ b/l LE edema Neuro: Alert, no focal deficits, moves all extremities, CN 2-12 grossly intact, symmetrical strength b/l upper/lower, sensations intact b/l upper/lower Skin: warm/dry DATA Data Completed and Pending Labs: Labs from last 24 hours 05/31/20 05/31/20 05/31/20 16:45 16:45 16:44 WBC 5.8 RBC 3.57 L Hgb 10.2 L Hct 32.7 L MCV 91.6 MCH 28.6 MCHC 31.2 RDW 14.6 H Plt Count 138 L MPV 11.6 H Neut % (Auto) 65.9 Lymph % (Auto) 19.3 [place] % (Auto) 6.9 Eos % (Auto) 7.4 H Baso % (Auto) 0.5 Lymph # (Auto) 1.12 L [place] # (Auto) 0.40 Eos # (Auto) 0.43 Baso # (Auto) 0.03 Absolute Neutrophils 3.82 POC PT 13.6 PT 14.0 POC INR 1.1 INR 1.0 APTT 31.4 Sodium Potassium Chloride Carbon Dioxide Anion Gap BUN Creatinine GFR Calculation Glucose Calcium Total Bilirubin AST ALT Alkaline Phosphatase Total Protein Albumin Globulin Albumin/Globulin Ratio 05/31/20 16:44 WBC RBC Hgb Hct MCV MCH MCHC RDW Plt Count MPV Neut % (Auto) Lymph % (Auto) [place] % (Auto) Eos % (Auto) Baso % (Auto) Lymph # (Auto) [place] # (Auto) Eos # (Auto) Baso # (Auto) Absolute Neutrophils POC PT PT POC INR INR APTT Sodium 142 Potassium 3.6 Chloride 106 Carbon Dioxide 25 Anion Gap 11.0 BUN 31 H Creatinine 1.3 H GFR Calculation 49 Glucose 160 H Calcium 8.8 Total Bilirubin 0.3 AST 17 ALT 12 Alkaline Phosphatase 117 Total Protein 6.7 Albumin 4.1 Globulin 2.6 Albumin/Globulin Ratio 1.6 A/P Narrative A/P Narrative: A: *GI bleed, lower: 2/2 likely diverticulosis (h/o diverticular bleeding several months ago) *Anemia, acute blood loss: *HTN/HLD: *GERD: *Hypothyroidism: *Peripheral edema: Takes Lasix at home * P: -Monitor H&H -Colonoscopy in the morning by Dr. Huston -Continue home medications but hold aspirin for bleeding - -ppx: SCDs/home PPI Time Spent With Patient Time: Total time spent is greater than 50% in coordination of care (as docume nted) at patient's floor/unit and/or counseling patient:
[2020-05-31] MEDS ORDERED: ONDANSETRON 4 MG/2 ML VIAL IV PRN (20:09)
[2020-05-31] MEDS ORDERED: POTASSIUM CHLORIDE 20 MEQ TABLET PO PRN ×2 (20:09)
[2020-05-31] MEDS ORDERED: ACETAMINOPHEN 325 MG TABLET PO PRN (20:09)
[2020-05-31] MEDS ORDERED: POTASSIUM CHLORIDE 40 MEQ in DEXTROSE 5% IN WATER 500 ML IV PRN (20:09)
[2020-05-31] MEDS ORDERED: MAGNESIUM SULFATE 2 GM/50 ML BAG IV PRN (20:09)
[2020-05-31] MEDS ORDERED: IPRATROPIUM/ALBUTEROL 3 ML AMPUL.NEB NEB PRN (20:09)
[2020-05-31] MEDS ORDERED: NITROGLYCERIN 0.4 MG TAB.SUBL SL PRN (20:22)
[2020-05-31] MEDS ORDERED: ATORVASTATIN 20 MG TABLET PO SCH (21:00)
[2020-05-31] MEDS: 0.9 % SODIUM CHLORIDE 10 ML SYRINGE IV SCH (21:03)
[2020-05-31] MEDS: OMEPRAZOLE 20 MG CAPSULE PO SCH (21:03)
[2020-05-31] MEDS ORDERED: 0.9 % SODIUM CHLORIDE 250 ML IV SCH (21:30)
[2020-06-01 01:27] LABS: Hematocrit 24.4 % (41.0-55.0); Hemoglobin 7.8 g/dL (13.5-16.5)
[2020-06-01] MEDS ORDERED: PEG 3350/NA SULF,BICARB,CL/KCL 4,000 ML ORAL.SOL PO ONE (04:00)
[2020-06-01] MEDS: 0.9 % SODIUM CHLORIDE 10 ML SYRINGE IV SCH ×2 (05:24→13:18)
[2020-06-01 07:01] LABS: Basophils # (Auto) 0.05 K/mcL (0.00-0.20); Basophils % (Auto) 0.6 % (0.0-2.0); Eosinophils # (Auto) 0.59 K/mcL (0.00-0.70); Eosinophils % (Auto) 7.6 % (0.0-7.0); Hematocrit 36.2 % (41.0-55.0); Lymphocytes # (Auto) 1.95 K/mcL (1.50-4.80); Lymphocytes % (Auto) 25.2 % (15.0-49.0); Mean Corpuscular HGB Conc 33.1 g/dL (31.0-36.0); Monocytes # (Auto) 0.54 K/mcL (0.10-0.90); Neutrophils % (Auto) 59.6 % (38.0-78.0); Platelet Count 130 K/mcL (140-440); RBC 4.02 M/mcL (4.50-5.90); WBC 7.7 K/mcL (4.5-11.0)
[2020-06-01] MEDS: LEVOTHYROXINE 100 MCG TABLET PO SCH ×2 (07:01→09:22)
[2020-06-01] MEDS: OMEPRAZOLE 20 MG CAPSULE PO SCH ×2 (07:01→09:22)
--- NOTE | 2020-06-01 07:12 | Internal Med Progress Note ---
SUBJECTIVE Subjective Patient information: Note initiated : 06/01/20 at 7:10 am Service Date, if different from initiated Date: [] Patient: Bakari Golden a 85 y/o M admitted on 05/31/20 for Rectal bleed. Chief Complaint: [] Interval history: History of present illness: Mr. Golden is a 85 year old M Presents to the ED with bright red blood per rectum. Patient has a history of diverticulosis and had a significant bleeding episode several months ago. Patient is well-known to Dr. Huston. Bleeding started today. He had probably 4 5 episodes of bright red blood per rectum at home and has had several episodes in the ED. Denies any chest pain shortness of breath lightheadedness. Vital signs stable in the ED. Hemoglobin 10. 3 Patient received 2 units of blood last night. Vital signs stable. Bowel prep underway. Constitutional Vitals: Vital Signs Temp Pulse Resp BP Pulse Ox 97.8 F 66 18 132/61 99 06/01/20 07:03 06/01/20 07:03 06/01/20 07:03 06/01/20 07:03 06/01/20 07:03 Period Temp Pulse Resp BP Sys/Alonso Pulse Ox Last 24 Hr 97.0 F-98.4 F 62-78 12-21 119-161/51-84 94-100 Intake and Output 05/31/20 06/01/20 06/01/20 21:59 05:59 13:59 Intake Total 1000 806 Output Total 70 500 Balance 930 306 Weight 66.497 kg Intake & Output: Intake & Output 05/31/20 06/01/20 06/01/20 21:59 05:59 13:59 Intake Total 1000 806 Output Total 70 500 Balance 930 306 Weight 66.497 kg Intake: IV 1000 Sodium Chloride 0.9% 1,000 ml @ 1000 Wide Open IV .Q0M ONE Rx#: [id number] Blood Product 806 Output: Stool 70 500 Other: Stool Size Moderate Smear Large Stool Color Bright Red Blood Brown Brown Blood Tinged Stool Consistency Soft Formed Watery # Voids 1 # Bowel Movements 1 1 # of times incontinent of 1 Bowels Exam: General: Alert, Awake, No acute Distress Eyes/N/T: EOMI, Head/Neck: neck supple, CV: RRR, 2/6 SM, Pulm: Clear b/l, no wheezing/rhonchi/rales Abd: soft, nontender, +BS x4 Ext: no clubbing/cyanosis 2+ b/l LE edema Neuro: Alert, no focal deficits, moves all extremities, Skin: warm/dry OBJ DATA Labs CBC & Chem 7: 06/01/20 05:34 05/31/20 16:44 Labs: Abnormal Lab Results 06/01/20 05/31/20 05/31/20 05:34 22:21 16:45 RBC 4.02 L 3.57 L Hgb 12.0 L 7.8 L 10.2 L Hct 36.2 L 24.4 L 32.7 L RDW 14.6 H Plt Count 130 L 138 L MPV 12.0 H 11.6 H Eos % (Auto) 7.6 H 7.4 H Lymph # (Auto) 1.12 L BUN Creatinine Glucose 05/31/20 16:44 RBC Hgb Hct RDW Plt Count MPV Eos % (Auto) Lymph # (Auto) BUN 31 H Creatinine 1.3 H Glucose 160 H Meds: Medications Acetaminophen (Acetaminophen 325 Mg Tablet) 650 mg PO Q6HP PRN PRN Reason: PAIN/FEVER > 101 Albuterol/Ipratropium (Ipratropium/Albuterol 3 Ml Ampul.Neb) 3 ml NEB Q4HP PRN PRN Reason: Shortness Of Breath Atorvastatin Calcium (Atorvastatin 20 Mg Tablet) 10 mg PO HS [facility] Last Admin: 05/31/20 21:03 Dose: 10 mg Documented by: Furosemide (Furosemide 40 Mg Tablet) 40 mg PO QAM [facility] Potassium Chloride 40 meq/ (Dextrose) 520 mls @ 130 mls/hr IV UD PRN PRN Reason: Potassium < 3 Magnesium Sulfate (Magnesium Sulfate) 2 gm in 50 mls @ 50 mls/hr IV UD PRN PRN Reason: Magnesium </= 1.6 Sodium Chloride (Sodium Chloride 0.9%) 250 mls @ 20 mls/hr IV .[id number] [facility] Stop: 06/01/20 09:59 Last Admin: 05/31/20 21:57 Dose: Not Given Documented by: Levothyroxine Sodium (Levothyroxine 100 Mcg Tablet) 100 mcg PO ACB [facility] Last Admin: 06/01/20 07:01 Dose: Not Given Documented by: Metoprolol Tartrate (Metoprolol Tartrate 25 Mg Tablet) 25 mg PO QAM [facility] Nitroglycerin (Nitroglycerin 0.4 Mg Tab.Subl) 0.4 mg SL Q5M PRN PRN Reason: Chest Pain Omeprazole (Omeprazole 20 Mg Capsule) 40 mg PO BIDAC [facility] Last Admin: 06/01/20 07:01 Dose: Not Given Documented by: Ondansetron HCl (Ondansetron 4 Mg/2 Ml Vial) 4 mg IV Q4HP PRN PRN Reason: Nausea And Vomiting Potassium Chloride (Potassium Chloride 20 Meq Tablet) 40 meq PO UD PRN PRN Reason: Potssium is 3-3.5 Potassium Chloride (Potassium Chloride 20 Meq Tablet) 40 meq PO UD PRN PRN Reason: Potassium < 3 Sodium Chloride (0.9 % Sodium Chloride 10 Ml Syringe) 10 ml IV Q8 [facility] Last Admin: 06/01/20 05:24 Dose: Not Given Documented by: Tamsulosin HCl (Tamsulosin 0.4 Mg Capsule) 0.4 mg PO QDAY [facility] A/P Narrative A/P Narrative: A: *GI bleed, lower: 2/2 likely diverticulosis (h/o diverticular bleeding several months ago) *Anemia, acute blood loss: -s/p 2prbc (05/31) *HTN/HLD: *GERD: *Hypothyroidism: *Peripheral edema: Takes Lasix at home P: -Monitor H&H -Colonoscopy by Dr. Huston -Continue home medications but hold aspirin for bleeding -ppx: SCDs/home PPI Time Spent With Patient Time: Total time spent is greater than 50% in coordination of care (as documented) at patient's floor/unit and/or counseling patient:
[2020-06-01] MEDS ORDERED: METOPROLOL TARTRATE 25 MG TABLET PO SCH (09:00)
[2020-06-01] MEDS ORDERED: TAMSULOSIN 0.4 MG CAPSULE PO SCH (09:00)
[2020-06-01] MEDS ORDERED: FUROSEMIDE 40 MG TABLET PO SCH (09:00)
[2020-06-01] MEDS ORDERED: KETAMINE 50 MG/ML ML IV PRN (09:22)
[2020-06-01] MEDS ORDERED: MIDAZOLAM 2 MG/2 ML VIAL IV SCH (09:30)
[2020-06-01] MEDS ORDERED: PROPOFOL 200 MG/20 ML VIAL IV SCH (09:30)
[2020-06-01] MEDS ORDERED: FLEETS ADULT ENEMA PR ONE (09:47)
[2020-06-01] MEDS ORDERED: 0.9 % SODIUM CHLORIDE 500 ML IV ONE (11:42)
--- NOTE | 2020-06-01 12:17 | Internal Med Progress Note ---
SUBJECTIVE Subjective Patient information: Note initiated : 06/02/20 at 12:16 pm Service Date, if different from initiated Date: [] Patient: Bakari Golden a 85 y/o M admitted on 05/31/20 for Rectal bleed. Chief Complaint: [] Interval history: History of present illness: Mr. Golden is a 85 year old M Presents to the ED with bright red blood per rectum. Patient has a history of diverticulosis and had a significant bleeding episode several months ago. Patient is well-known to Dr. Huston. Bleeding started today. He had probably 4 5 episodes of bright red blood per rectum at home and has had several episodes in the ED. Denies any chest pain shortness of breath lightheadedness. Vital signs stable in the ED. Hemoglobin 10. 3/26 Patient received 2 units of blood last night. Vital signs stable. Bowel prep underway. Constitutional Vitals: Vital Signs Temp Pulse Resp BP Pulse Ox 97.8 F 68 16 96/53 92 06/01/20 11:05 06/01/20 11:46 06/01/20 11:46 06/01/20 11:46 06/01/20 11:46 Period Temp Pulse Resp BP Sys/Alonso Pulse Ox Last 24 Hr 97.0 F-98.4 F 61-78 12-21 78-161/50-84 92-100 Intake and Output 05/31/20 06/01/20 06/01/20 21:59 05:59 13:59 Intake Total 1000 806 Output Total 70 500 3701 Balance 930 306 -3701 Weight 66.497 kg Intake & Output: Intake & Output 05/31/20 06/01/20 06/01/20 21:59 05:59 13:59 Intake Total 1000 806 Output Total 70 500 3701 Balance 930 306 -3701 Weight 66.497 kg Intake: IV 1000 Sodium Chloride 0.9% 1,000 ml @ 1000 Wide Open IV .Q0M ONE Rx#: [id number] Blood Product 806 Output: # of times incontinent of urine 1 Urine/Stool Mix 3700 Stool 70 500 Other: Stool Size Moderate Smear Copious Stool Color Bright Red Blood Brown Brown Stool Consistency Soft Liquid Loose # Voids 1 1 # Bowel Movements 1 1 1 # of times incontinent of 1 1 Bowels Exam: General: Alert, Awake, No acute Distress Eyes/N/T: EOMI, Head/Neck: neck supple, CV: RRR, 2/6 SM, Pulm: Clear b/l, no wheezing/rhonchi/rales Abd: soft, nontender, +BS x4 Ext: no clubbing/cyanosis 2+ b/l LE edema Neuro: Alert, no focal deficits, moves all extremities, Skin: warm/dry OBJ DATA Labs CBC & Chem 7: 06/01/20 05:34 05/31/20 16:44 Labs: Abnormal Lab Results 06/01/20 05/31/20 05/31/20 05:34 22:21 16:45 RBC 4.02 L 3.57 L Hgb 12.0 L 7.8 L 10.2 L Hct 36.2 L 24.4 L 32.7 L RDW 14.6 H Plt Count 130 L 138 L MPV 12.0 H 11.6 H Eos % (Auto) 7.6 H 7.4 H Lymph # (Auto) 1.12 L BUN Creatinine Glucose 05/31/20 16:44 RBC Hgb Hct RDW Plt Count MPV Eos % (Auto) Lymph # (Auto) BUN 31 H Creatinine 1.3 H Glucose 160 H Meds: Medications Acetaminophen (Acetaminophen 325 Mg Tablet) 650 mg PO Q6HP PRN PRN Reason: PAIN/FEVER > 101 Albuterol/Ipratropium (Ipratropium/Albuterol 3 Ml Ampul.Neb) 3 ml NEB Q4HP PRN PRN Reason: Shortness Of Breath Atorvastatin Calcium (Atorvastatin 20 Mg Tablet) 10 mg PO HS [facility] Last Admin: 05/31/20 21:03 Dose: 10 mg Documented by: Diagnostic Test (Pha) (Accu-Chek 1 Each Strip) 1 each FS UD PRN PRN Reason: DM Stop: 06/01/20 17:23 Furosemide ([facility]semide 40 Mg Tablet) [facility] [place] Admin: 06/01/20 09:22 Dose: 40 mg Documented by: Potassium Chloride 40 meq/ (Dextrose) 520 mls @ 130 mls/hr IV UD PRN PRN Reason: Potassium < 3 Magnesium Sulfate (Magnesium Sulfate) 2 gm in 50 mls @ 50 mls/hr IV UD PRN PRN Reason: Magnesium </= 1.6 Ketamine HCl (Ketamine 50 Mg/Ml Ml) 50 mg IV ONCE PRN PRN Reason: Sedation Stop: 06/01/20 17:23 Levothyroxine Sodium (Levothyroxine 100 Mcg Tablet) 100 mcg PO ACB [facility] Last Admin: 06/01/20 09:22 Dose: 100 mcg Documented by: Metoprolol Tartrate (Metoprolol Tartrate 25 Mg Tablet) 25 mg PO QAM [facility] Last Admin: 06/01/20 09:22 Dose: 25 mg Documented by: Midazolam HCl (Midazolam 2 Mg/2 Ml Vial) 0 mg IV ONCE [facility] Stop: 06/01/20 17:23 Last Admin: 06/01/20 11:07 Dose: 2 mg Documented by: Nitroglycerin (Nitroglycerin 0.4 Mg Tab.Subl) 0.4 mg SL Q5M PRN PRN Reason: Chest Pain Omeprazole (Omeprazole 20 Mg Capsule) 40 mg PO BIDAC [facility] Last Admin: 06/01/20 09:22 Dose: 40 mg Documented by: Ondansetron HCl (Ondansetron 4 Mg/2 Ml Vial) 4 mg IV Q4HP PRN PRN Reason: Nausea And Vomiting Potassium Chloride (Potassium Chloride 20 Meq Tablet) 40 meq PO UD PRN PRN Reason: Potssium is 3-3.5 Potassium Chloride (Potassium Chloride 20 Meq Tablet) 40 meq PO UD PRN PRN Reason: Potassium < 3 Propofol (Propofol 200 Mg/20 Ml Vial) 0 mg IV UD [facility] Stop: 06/01/20 17:23 Last Admin: 06/01/20 11:07 Dose: 150 mg Documented by: Sodium Chloride (0.9 % Sodium Chloride 10 Ml Syringe) 10 ml IV Q8 [facility] Last Admin: 06/01/20 05:24 Dose: Not Given Documented by: Tamsulosin HCl (Tamsulosin 0.4 Mg Capsule) 0.4 mg PO QDAY [facility] Last Admin: 06/01/20 09:22 Dose: 0.4 mg Documented by: A/P Narrative A/P Narrative: Assessment: 85-year-old male with history of HTN, hypothyroidism, GERD admitted for acute blood loss anemia secondary to hematochezia. Received 2 units RBC, awaiting colonoscopy. *GI bleed, lower: 2/2 likely diverticulosis (h/o diverticular bleeding several months ago) *Anemia, acute blood loss: -s/p 2prbc (05/31) *HTN/HLD: *GERD: *Hypothyroidism: *Peripheral edema: Takes Lasix at home P: -Monitor H&H -Colonoscopy by Dr. Huston -Continue home medications but hold aspirin for bleeding -ppx: SCDs/home PPI Time Spent With Patient Time: Total time spent is greater than 50% in coordination of care (as documented) at patient's floor/unit and/or counseling patient:
--- NOTE | 2020-06-01 16:20 | Discharge Summary ---
Discharge Provider Provider Patient information: Note initiated : 06/01/20 at 4:13 pm Service Date, if different from initiated Date: [] Patient: Bakari Golden 85 y/o M admitted on 05/31/20 for Rectal bleed. Chief Complaint: [bloody stool] Date of admission: 05/31/20 20:05 Discharge date: 06/01/20 Primary care physician: Aayush Thomas DO Consults: 05/31/20 Consult to Physician [CONS] Stat Comment: Consulting Provider: Damon Gerardo Reason For Exam: Physician to Consult 05/31/20 17:49 Consult to Physician [CONS] Stat Comment: Consulting Provider: Lenny Rivera Reason For Exam: Physician to Consult Discharge Meds Discharge Medications Home Medications ferrous gluconate 324 mg PO DAILY 03/07/16 [History Confirmed 05/31/20 Last Taken 05/31/20 09:00] levothyroxine 100 mcg PO DAILY 03/07/16 [History Confirmed 05/31/20 Last Taken 05/31/20 07:00] omeprazole 40 mg PO BID 03/07/16 [History Confirmed 05/31/20 Last Taken 05/31/20 09:00] omega 8-mvq-xvv-fish oil 1,000 mg PO BID 03/10/16 [History Confirmed 05/31/20 Last Taken 05/30/20 21:00] rkigxyfh-mtbd-WD-calcium-mins 1 tab PO DAILY tab 03/12/16 [Rx Confirmed 05/31/20 Last Taken 05/31/20 09:00] atorvastatin 20 mg tablet 10 mg PO HS 08/31/18 [History Confirmed 05/31/20 Last Taken 05/30/20 21:00] blood sugar diagnostic #10 each 08/31/18 [History Confirmed 02/27/20 Last Taken Unknown] metoprolol tartrate 25 mg tablet 25 mg PO QAM tab 08/31/18 [History Confirmed 05/31/20 Last Taken 05/31/20 09:00] nitroglycerin 0.4 mg sublingual tablet 0.4 mg SUBLINGUAL Q5-15M PRN 08/31/18 [History Confirmed 05/31/20 Last Taken Unknown] tamsulosin 0.4 mg capsule 0.4 mg PO QDAY #30 cap 11/23/19 [Rx Confirmed 05/31/20 Last Taken 05/31/20 09:00] acetaminophen 1,000 mg PO BID 05/31/20 [History Confirmed 05/31/20 Last Taken 05/31/20 09:00] furosemide 40 mg PO QAM 05/31/20 [History Confirmed 05/31/20 Last Taken 05/31/20 09:00] vitamin B complex [B Complex-Vitamin B12] 1 tab PO QAM 05/31/20 [History Confirmed 05/31/20 Last Taken 05/31/20] COURSE Hospital Course Hospital course: Mr. Golden is a 85 year old male who presented to the ED with bright red blood per rectum. Patient has a history of diverticulosis and had a significant bleeding episode several months ago. Patient is well-known to Dr. Huston. Bleeding started on the day of admission, he felt he had 4-5 episodes of bright red blood per rectum at home and had several witnessed episodes in the ED. Admitted for GI workup. Received 2 units of blood. Remained hemodynamically stable. GI consulted, completed bowel preparation then colonoscopy. After the procedure I discussed the results with GI, Dr. Huston. He felt this was a diverticular bleed but did not find any active bleeding site during the colonos copy. Recommended no NSAIDs, including aspirin, indefinitely. Did not resume aspirin or Meloxicam at discharge. Discussed workup results and recommendations with the patient before discharge to home. Follow up; Follow up hemoglobin/hematocrit level. Monitor for recurrent lower GI bleeding. Discharge diagnosis: Lower GI bleed likely diverticular bleed Time Spent with Patient Time attestation: Total time spent providing and/or coordinating discharge services: 30 minutes EXAM Constitutional Vitals: Temp Pulse Resp BP Pulse Ox 97.6 F 71 16 129/66 99 06/01/20 12:00 06/01/20 12:00 06/01/20 12:00 06/01/20 12:00 06/01/20 12:00 Additional findings Additional findings: Head: Atraumatic, normal inspection. Eyes: normal appearance, no scleral icterus. Neck: full ROM Respiratory: no respiratory distress. Cardiovascular: normal rate and rhythm, S1, S2. GI/Abdominal: soft, nontender, no guarding. Extremities: full range of motion, nontender. Neurological: CN II-XII intact, intact motor, intact sensation. Psychiatric: normal mood. Skin: warm, normal color Discharge Data Data Completed and Pending Labs on day of discharge: Labs from last 24 hours 06/01/20 05/31/20 05/31/20 05:34 22:21 16:45 WBC 7.7 RBC 4.02 L Hgb 12.0 L 7.8 L Hct 36.2 L 24.4 L MCV 90.0 MCH 29.9 MCHC 33.1 RDW 14.0 Plt Count 130 L MPV 12.0 H Neut % (Auto) 59.6 Lymph % (Auto) 25.2 Bill[place] % (Auto) 7.0 Eos % (Auto) 7.6 H Baso % (Auto) 0.6 Lymph # (Auto) 1.95 [place] # (Auto) 0.54 Eos # (Auto) 0.59 Baso # (Auto) 0.05 Absolute Neutrophils 4.60 POC PT 13.6 PT 14.0 POC INR 1.1 INR 1.0 APTT Sodium Potassium Chloride Carbon Dioxide Anion Gap BUN Creatinine GFR Calculation Glucose Calcium Total Bilirubin AST ALT Alkaline Phosphatase Total Protein Albumin Globulin Albumin/Globulin Ratio 05/31/20 05/31/20 05/31/20 16:45 16:44 16:44 WBC 5.8 RBC 3.57 L Hgb 10.2 L Hct 32.7 L MCV 91.6 MCH 28.6 MCHC 31.2 RDW 14.6 H Plt Count 138 L MPV 11.6 H Neut % (Auto) 65.9 Lymph % (Auto) 19.3 Bill[place] % (Auto) 6.9 Eos % (Auto) 7.4 H Baso % (Auto) 0.5 Lymph # (Auto) 1.12 L [place] # (Auto) 0.40 Eos # (Auto) 0.43 Baso # (Auto) 0.03 Absolute Neutrophils 3.82 POC PT PT POC INR INR APTT 31.4 Sodium 142 Potassium 3.6 Chloride 106 Carbon Dioxide 25 Anion Gap 11.0 BUN 31 H Creatinine 1.3 H GFR Calculation 49 Glucose 160 H Calcium 8.8 Total Bilirubin 0.3 AST 17 ALT 12 Alkaline Phosphatase 117 Total Protein 6.7 Albumin 4.1 Globulin 2.6 Albumin/Globulin Ratio 1.6 Discharge Plan Patient/Caregiver Discharge Instructions Activity: increase activity as tolerated Instructions: Gastrointestinal Bleeding (DC), Colonoscopy (DC) Activity Restrictions/Additional Instructions: May resume regular diet as tolerated. Increase activity as tolerated. Call your physician for bleeding, sustained fever greater than 100.5 or any questions/concerns. This discharge packet is provided to you to help keep you informed about your care. We want to ensure you get everything you need when you go home. You will also be receiving a call from us in a few days to follow up with you and see how you are doing since your discharge. This gives us a chance to listen to any concerns you maybe experiencing since you were discharged or any additional needs you may have, as well as providing us feedback on your care experience. We strive to always provide excellent care and thank you for your feedback and for choosing [facility]. Prescriptions: Continued levothyroxine 100 MCG tablet 100 mcg PO DAILY RF: 0 omeprazole 20 MG capsule 40 mg PO BID RF: 0 ferrous gluconate 324 MG tablet 324 mg PO DAILY RF: 0 omega 8-cvl-dtl-fish oil 1,000 MG capsule 1,000 mg PO BID RF: 0 itfwcjuf-ztzm-CZ-calcium-mins 1 TAB tablet 1 tab PO DAILY RF: 0 furosemide 40 mg Tablet 40 mg PO QAM RF: 0 acetaminophen 500 mg Tablet 1,000 mg PO BID RF: 0 vitamin B complex [B Complex-Vitamin B12] Tablet 1 tab PO QAM RF: 0 metoprolol tartrate 25 mg tablet 25 mg PO QAM RF: 0 atorvastatin 20 mg tablet 10 mg PO HS RF: 0 nitroglycerin 0.4 mg tablet, sublingual 0.4 mg SUBLINGUAL Q5-15M PRN (Reason: Angina) RF: 0 tamsulosin 0.4 mg capsule 0.4 mg PO QDAY Qty: 30 RF: 6 Discontinued meloxicam 7.5 mg Tablet 7.5 mg PO QDAY RF: 0 aspirin [Adult Low Dose Aspirin] 81 mg tablet,delayed release (DR/EC) 81 mg PO QDAY RF: 0 No Action (DME) Contour Next Test Strips strip See Dose Instructions applic .ROUTE .MEDSUPPLY Qty: 10 RF: 0 Follow Up Plan Follow up with: Damon Gerardo MD [Physician] - (Please call and schedule a follow up appointment.) Aayush Thomas DO [Primary Care Provider] - (as needed.) Patient Disposition: Home, Self-Care Discharge Orders: Discharge Order (Routine); Ordered 06/01/20 Ordered By: Jose Elias Gonzalez
--- NOTE | 2020-06-01 16:34 | Colonoscopy Procedure Note ---
Colonoscopy Procedure Notes Procedure Information Patient information: Note initiated : 06/01/20 at 4:32 pm Service Date: 06/01/20 Patient: Bakari Golden 85 y/o M admitted on 05/31/20 for Rectal bleed. Pre-op diagnosis general: GI bleed. Post-op diagnosis general: Resolved diverticular bleed. Colonic polyps. Procedure: Colonoscopy with Polypectomy Snare Procedure narrative: The procedure, alternatives and risks were discussed with the patient and the patient's questions were answered. With endoscopist administered intravenous sedation, the Olympus colonoscope was introduced into the rectum and advanced to the cecum. Ileocecal valve was identified, intubated, and several centimeters of the terminal ileum were examined. Colonic polyps were seen in the ascending colon; polyps were removed with a snare. They were retrieved for histological examination. Diverticula appear uncomplicated in the ascending and sigmoid colon. There was normal stool in the proximal colon. There is no bleeding at present. Multiple diverticuli were seen in the left colon. Assessment: Resolved diverticular bleed. Repeat colonoscopy if rebleeds. Colonic polyps.
--- NOTE | 2020-06-04 11:07 | Surgical Pathology Report ---
Histology Microscopic Diagnosis Specimen A- COLON, ASCENDING, POLYPECTOMY: --- MULTIPLE PORTIONS OF HYPERPLASTIC POLYP. --- ONE PORTION OF TUBULAR ADENOMA. (RLF) Clinical History GI bleed. Procedural Impression Polyps; multiple diverticula left colon. Gross Description Received in formalin labeled ascending colon polyp, are seven fragments of pink-law tissue 0.3 to 0.6 cm. Totally submitted in one cassette. (KGW:adj) Electronically Signed Ernestine Reeder MD, FCAP Electronically Signed 06/04/2020 11:06
== END 2020-06-01 16:40 | disposition home or self-care (01) ==
LOC: MEDSUR 16:22 → ED 16:22 → MEDSUR 20:05
PROVIDERS: ADMIT Internal Medicine; ATTEND Internal Medicine